=== PATIENT | female | born 1950 | race Caucasian/White ===

== ENCOUNTER 2018-09-21 19:28 | Outpatient (CLI) | payer MEDICARE | END 2018-09-21 19:29 | disposition short-term general hospital (02) | LOC: EMS 19:28 | PROVIDERS: ATTEND Surgery | DX: R42 Dizziness and giddiness (principal) | CPT/HCPCS: A0170; A0425; A0427 ==

== ENCOUNTER 2019-06-04 13:35 | Outpatient (CLI) | payer MEDICARE ==
[2019-06-04 14:00] LABS: BASOPHILS # (AUTO) 0.1 10^3/uL (0.0-0.1); BASOPHILS % (AUTO) 0.6 %; EOSINOPHILS # (AUTO) 0.2 10^3/uL (0.0-0.7); EOSINOPHILS % (AUTO) 2.2 %; HGB - HEMOGLOBIN 13.4 g/dL (12.0-16.0); LYMPHOCYTES # (AUTO) 1.9 10^3/uL (1.5-3.5); LYMPHOCYTES % (AUTO) 22.1 %; MEAN CORPUSCULAR HEMOGLOBIN 33.7 pg (27.0-31.0); MEAN CORPUSCULAR HGB CONC 35.2 g/dL (32.0-36.0); MEAN CORPUSCULAR VOLUME 95.7 fL (81.0-99.0); MEAN PLATELET VOLUME 9.4 fL (7.9-10.8); MONOCYTES # (AUTO) 0.5 10^3/uL (0.0-1.0); MONOCYTES % (AUTO) 5.9 %; NEUTROPHILS # (AUTO) 5.8 10^3/uL (1.5-6.6); NEUTROPHILS % (AUTO) 68.7 %; PLT - PLATELET COUNT 371 10^3/uL (130-450); RED BLOOD COUNT 3.98 10^6/uL (4.20-5.40); RED CELL DISTRIBUTION WIDTH 12.2 % (12.0-15.0); WHITE BLOOD COUNT 8.5 x10^3/uL (4.8-10.8)
== END 2019-06-04 13:36 | disposition home or self-care (01) ==
LOC: LAB 13:35
PROVIDERS: ATTEND Nurse Anesthetist, Certified Registered
DX: K62.3 Rectal prolapse (principal); K64.9 Unspecified hemorrhoids
CPT/HCPCS: 36415; 85025

== ENCOUNTER 2019-06-06 12:06 | Outpatient (CLI) | payer MEDICARE | END 2019-06-06 12:07 | disposition home or self-care (01) | LOC: DI 12:06 | PROVIDERS: ATTEND Nurse Anesthetist, Certified Registered | DX: I42.9 Cardiomyopathy, unspecified (principal); I34.0 Nonrheumatic mitral (valve) insufficiency | CPT/HCPCS: 93306 ==

== ENCOUNTER 2019-06-07 08:06 | Inpatient (IN) | payer MEDICARE ==
[~2019-06-07 08:06] MED LIST: BUPIVACAINE 0.5% PF 10 ML VIAL ONE; POVIDONE IODINE 10% TOP ONE
[2019-06-07] MEDS ORDERED: GABAPENTIN 400 MG CAPSULE ONE (08:35)
[2019-06-07] MEDS ORDERED: ACETAMINOPHEN 500 MG TABLET PO ONE (08:35)
[2019-06-07] MEDS ORDERED: CELECOXIB 100 MG CAPSULE PO ONE (08:35)
[2019-06-07] MEDS ORDERED: LACTATED RINGERS 1,000 ML IV ONE ×2 (08:39→11:02)
--- NOTE | 2019-06-07 08:52 | ANESTHESIA ---
Pre-Anesthesia VS, & Labs - Diagnosis Rectal prolapse (recurrent) - Procedure Low anterior colon resection Vital Signs: Temp Pulse Resp BP Pulse Ox 36.0 C L 73 18 122/69 98 06/07/19 08:30 06/07/19 08:30 06/07/19 08:30 06/07/19 08:30 06/07/19 08:30 Height 5 ft 3 in Weight (kg) 58.1 kg - NPO >8 hours Last Fluid Intake: sips w/pre-op meds @0840 - Is Patient ?: No - Lab Results Lab results reviewed: Yes Home Medications and Allergies Home Medications: Ambulatory Orders Cholecalciferol (Vitamin D3) [Vitamin D] 2,000 unit PO DAILY 06/04/19 HYDROcod/ACETAM 5/325 [[place] 5/325] 1 - 2 ea PO Q6H PRN 06/04/19 Lactobacillus Acidophilus [Probiotic Acidophilus] 1 each PO DAILY 06/04/19 Ubidecarenone/Vit E Acetate [Co Q-10 100 mg Softgel] 1 each PO DAILY 06/04/19 Cholecalciferol (Vitamin D3) [Vitamin D] 2,000 unit PO DAILY 06/04/19 HYDROcod/ACETAM 5/325 [[place] 5/325] 1 - 2 ea PO Q6H PRN 06/04/19 Lactobacillus Acidophilus [Probiotic Acidophilus] 1 each PO DAILY 06/04/19 Ubidecarenone/Vit E Acetate [Co Q-10 100 mg Softgel] 1 each PO DAILY 06/04/19 Allergies/Adverse Reactions: Allergies Allergy/AdvReac Type Severity Reaction Status Date / Time No Known Drug Allergies Allergy Verified 07/08/15 12:17 Anes History & Medical History - Anesthetic History Anesthesia Complications: reports: No previous complications Family history of Anesthesia Complications: Denies Family history of Malignant Hyperthermia: Denies - Medical History Cardiovascular: reports: Other (hx Takotsubo's cardiomyopathy (resolved)) Pulmonary: reports: None Gastrointestinal: reports: Hemorrhoids, Other (rectal prolapse) Urinary: reports: None Musculoskeletal: reports: Osteoarthritis Endocrine/Autoimmune: reports: None Skin: reports: None Smoking Status: Never smoker Psychosocial: reports: Alcohol (daily wine) - Surgical History General: Appendectomy Results - Echo Results Echo Results: Report reviewed (EF 65-70, up from 35% in 09/11) Exam General: Alert, Oriented x3, Cooperative Dental: WNL (some missing at back, upper and lower) Mouth Openin Fingerbreadth Neck Mobility: Normal Mallampati classification: II Thyromental Distance: 4-6 cm Respiratory: Lungs clear, Normal breath sounds, No respiratory distress Cardiovascular: Regular rate Neurological: Normal speech Mental/Cognitive Status: Alert/Oriented X3, Normal for patient Cognitive Status: Within normal limits Plan Anesthesia Type: General, Epidural Consent for Procedure(s) Verified and Reviewed: Yes Code Status: Attempt Resuscitation ASA classification: 2-Mild systemic disease Is this case an emergency?: No
[2019-06-07] MEDS ORDERED: CEFOTETAN DISODIUM 2 GM in SODIUM CHLORIDE 0.9% 100ML 100 ML IV ONE (09:15)
[2019-06-07] MEDS ORDERED: BUPIVACAINE 0.5% PF 10 ML VIAL IM ONE (10:03)
[2019-06-07] MEDS: fent/BUPIV 2 MCG/0.125% 250 ML EP PRN (12:00)
[2019-06-07] MEDS ORDERED: ONDANSETRON 4 MG/2 ML VIAL IVP PRN (12:02)
[2019-06-07] MEDS ORDERED: NALBUPHINE 10 MG/ML AMP IVP PRN (12:02)
--- NOTE | 2019-06-07 12:53 | OPERATIVE REPORT ---
Operative Report - General Admit Date: 06/07/19 Procedure Date: 06/07/19 Planned Procedure: Sigmoidectomylow anterior resection Pre-Op Diagnosis: Rectal prolapse Procedure Performed: Sigmoidectomy with low anterior resection and colocolostomy. Bilateral oophorectomy. Mobilization of the splenic flexure. Post Op Diagnosis: Tumor within the rectum (pathology pending), markedly redundant colon with - Procedure Note Primary Surgeon: Rod Gan MD Secondary Surgeon: Aakash Wood MD Anesthesia Provider: Carlos Alberto York CRNA Anesthesia Technique: Epidural, General ET tube IV Fluids (mL): 1,500 Estimated Blood Loss (mL): 100 Urine Output (mL): 150 Drain/Tube Type: Other (None.) Findings: See above. Complications: None. - Other Other Information/Narrative: OPERATIVE DESCRIPTION/REPORT: After verbal and written informed consent was obtained detailing the risks of infection, bleeding requiring transfusion with its risks, nerve injury, and , as well as the possibility of a colostomy, and after I met with the patient confirming the surgery, the patient was brought to the operative suite and placed supine on the operating table. Great care was taken to avoid pressure points to prevent pressure necrosis or nerve injury. Monitoring devices were applied along with TEDs and pneumatic compressive stockings (to prevent DVT). The patient received preoperative antibiotics for surgical prophylaxis. Carlos Alberto York CRNA sedated and anesthetized the patient for the entire procedure. The patient was prepped and draped in the usual sterile manner. A "time in" then confirmed that the patient was identified with 3 identifiers (name, date and medical record number), the history and physical was in the chart, the signed consent confirming the procedure was in the chart, the patient was in the correct position, the aforementioned prophylactic measures were in place or given, we had the correct personnel and equipment to complete the procedure and that anesthesia, surgery and nursing were given an opportunity to express any concerns. With the agreement of everyone in the room, we proceeded with the operation. A midline incision was made infraumbilically and taken down to the fascia. The incision extended from 2 cm below the umbilicus to above the pubic tubercle. Once this was taken down to the fascia, the fascia and peritoneum were opened without incident or difficulty. The sigmoid colon was markedly redundant. Additionally, the left and right ovary were markedly abnormal with the left much larger than normal and fibrotic. The sigmoid colon and rectum were visually and manually examined and a tumor was easily identified within the rectum. 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 Both ovaries were resected using serial application of the LigaSure. The fallopian tubes were left intact. The uterus and vagina appeared to be normal. The upper-sigmoid colon was selected as the proximal point of resection and a TASNEEM stapler was used to transect the colon at this point. The peritoneum was scored using Bovie electrocautery and the mesentery was then taken sequentially using serial application of the LigaSure device. The posterior dissection was done using finger dissection along the sacrum whereas the peritoneal attachments both anteriorly and laterally were taken using Bovie electrocautery as well as the LigaSure device. The left ureter was positively identified and avoided. After dissecting beyond the tumor, an Ethicon Contour stapler was obtained and placed across the distal rectum and fired. The specimen was delivered from the operative field and I opened it on the back table to confirm the presence of a colorectal tumor. There was a significant amount of hard stool present in the colon due to the fact that I had opted not to give the patient a mechanical prep due to concerns that I had regarding her prolapse. The patient had told me that she had only been on a liquid diet for weeks and months. At any rate it was clear that I was going to have to remove this stool before I could affect a proper anastomosis. After draping of the entire abdomen with blue towels the proximal colon was opened using Jaramillo scissors and to very hard stools were removed. The open end of the colon was swabbed using Betadine solution. A 31 mm EEA stapler was obtained. An automatic pursetring device was placed across the proximal sigmoid colon and a 3-0 Prolene on a Alvaro needle was used to form the purse string. After the stapled end was removed, the anvil was placed in the open and of the colon and the purse string tied against the post of the anvil. There was not enough length to the colon for it to go into the pelvis without tension. The splenic flexure of the colon was mobilized using Bovie electro cautery as well as serial application of LigaSure of right finger. The markedly redundant nature of the patient's colon made this significantly easier and the incision did not need to be lengthened. With mobilization of the splenic flexure it was clear that the proximal colon would drop down into the pelvis without any tension. Dr. Wood then serially dilated the patients anus with his fingers and water-soluble lubricant in order that the stapler could be inserted. The aforementioned EEA stapler was inserted into the patients rectum through the anus and carefully directed to the staple line by Dr. Wood. Dr. Wood advanced the spike under my direction and the aforementioned anvil was placed over the spike until a click could be heard. This was screwed down tight and the stapler was fired creating the colocolostomy. The pelvis was filled with warm sterile saline and the proximal colon was obstructed between my two fingers while Dr. Wood introduced air through the patients anus using a bulb syringe. The anastamosis was airtight. Additionally, Dr. Wood advanced apart scope beyond the anastomosis and although he could not take any photographs the anastomosis was noted to be intact. For closure, Dr. Wood and I changed into a sterile gown and gloves. The liver was palpably normal. The abdomen was copiously irrigated with warm saline. The fascia was closed using a 0 looped PDS in a running fashion. The fascial closure was started superiorly and inferiorly and run to meet in the middle. The subcutaneous tissues were copiously irrigated using warm sterile saline and meticulous hemostasis was obtained using Bovie electrocautery. The skin was approximated using skin kadie. At this point a time out was performed that confirmed that all the counts were correct, the procedure that was performed, the blood loss, the urine output, the IV fluids administered, and the patients condition. A PRimapore dressing was placed on the wound. Having tolerated the procedure well, the patient was subsequently extubated and taken to recovery room in good and stable condition. [employer] disclaimer: This document was created in part using voice recognition technology. Because of the inherent limitations of the system ([employer]'s [employer] Dictate user manual states that the licensee understands that speech recognition is a statistical process and that recognition errors are inherent in the process), occasional same sounding word substitutions and grammatical errors do occur and persist despite proofreading. Please read this document for context.
[2019-06-07] MEDS ORDERED: LACTATED RINGERS 1,000 ML IV SCH (13:00)
[2019-06-07] MEDS ORDERED: PIPERACILLIN/TAZOBACTAM 3.375 GM in SODIUM CHLORIDE 0.9% MINIBAG 100 ML IV SCH (14:00)
[2019-06-07] MEDS: ACETAMINOPHEN 1,000 MG/100 ML 100 ML IV SCH ×2 (14:57→21:22)
[2019-06-07] MEDS: SODIUM CHLORIDE FLUSH 0.9% 10 ML SYRINGE IVP PRN (14:58)
[2019-06-07] MEDS: PANTOPRAZOLE 40 MG VIAL IVP SCH (14:58)
[2019-06-07] MEDS: SODIUM CHLORIDE FLUSH 0.9% 10 ML SYRINGE IVP SCH (21:08)
[2019-06-08] MEDS: ACETAMINOPHEN 1,000 MG/100 ML 100 ML IV SCH ×4 (01:51→21:42)
[2019-06-08 04:42] LABS: BASOPHILS % (AUTO) 0.2 %; EOSINOPHILS % (AUTO) 0.5 %; HGB - HEMOGLOBIN 11.3 g/dL (12.0-16.0); LYMPHOCYTES % (AUTO) 9.8 %; MEAN CORPUSCULAR HGB CONC 34.5 g/dL (32.0-36.0); MEAN CORPUSCULAR VOLUME 98.8 fL (81.0-99.0); MEAN PLATELET VOLUME 9.6 fL (7.9-10.8); MONOCYTES % (AUTO) 3.8 %; NEUTROPHILS % (AUTO) 85.2 %; PLT - PLATELET COUNT 293 10^3/uL (130-450); RED BLOOD COUNT 3.32 10^6/uL (4.20-5.40); RED CELL DISTRIBUTION WIDTH 12.4 % (12.0-15.0); WHITE BLOOD COUNT 13.1 x10^3/uL (4.8-10.8)
[2019-06-08 04:46] LABS: ABNORMAL LYMPHS % (MANUAL) 0 %; BAND NEUTROPHILS % (MANUAL) 0 %
[2019-06-08 05:06] LABS: ALBUMIN 2.9 g/dL (3.2-5.5); ALBUMIN/GLOBULIN RATIO 1.5 (1.0-2.2); BILIRUBIN,TOTAL 0.8 mg/dL (0.2-1.0); CALCIUM 8.3 mg/dL (8.5-10.3); CREATININE 0.7 mg/dL (0.4-1.0); TOTAL PROTEIN 4.8 g/dL (6.7-8.2)
[2019-06-08 05:20] LABS: DIFFERENTIAL COMMENT MANUAL DIFFERENTIAL; LYMPHOCYTES # (MANUAL) 1.4 10^3/uL (1.5-3.5); LYMPHOCYTES % (MANUAL) 11 %; MONOCYTES # (MANUAL) 0.5 10^3/uL (0.0-1.0); PLATELET ESTIMATE, MANUAL NORMAL (130-450,000) (NORMAL); PLATELET MORPHOLOGY NORMAL APPEARANCE (NORMAL); RBC MORPHOLOGY (MULTIPLE) NORMAL APPEARANCE (NORMAL)
[2019-06-08] MEDS: PANTOPRAZOLE 40 MG VIAL IVP SCH (06:43)
[2019-06-08] MEDS: SODIUM CHLORIDE FLUSH 0.9% 10 ML SYRINGE IVP SCH ×3 (06:43→16:18)
[2019-06-08] MEDS: fent/BUPIV 2 MCG/0.125% 250 ML EP PRN ×2 (07:02→11:00)
--- NOTE | 2019-06-08 10:48 | ANESTHESIA POST OP EVALUATION ---
Anesthesia Post Eval - Post Anesthesia Eval CV Function Including HR & BP: positive: Stable Pain Control: positive: Adequate Nausea & Vomiting: positive: Negative Mental Status: positive: Appropriate Anesthesia Complications: positive: None - Other Details/Therapies Other Details/Therapies: Epidural site is clear. Patient reports good pain control with no need for narcotics. Left leg is numb/weak. Will decrease infusion rate to 6ml/hr with same PCEA. Patient is not on any anticoagulants so epidural can be removed whenever surgeon feels appropriate. Plan on removal on 06/10 unless surgeon wants it removed sooner.
--- NOTE | 2019-06-08 12:20 | PROVIDER PROGRESS NOTE ---
Subjective - General Admit Date: 06/07/19 Procedure Date: 06/07/19 Post Op Days: 1 Procedure Performed: Extended LAR/sigmoidectomy, mobilization splenic flexure, B oophorectomy - Review of Systems Wound/Incisions: positive: Dressing dry and intact General: positive: No symptoms HEENT: positive: No symptoms Pulmonary: positive: No symptoms Cardiovascular: positive: No symptoms Gastrointestinal: positive: No symptoms Genitourinary: positive: No symptoms Musculoskeletal: positive: No symptoms Skin: positive: No symptoms Psychiatric: positive: No symptoms Objective - Patient Data Reviewed Vital Signs: Yes Weight: Weight 06/06/19 06/07/19 06/08/19 23:59 23:59 23:59 Weight (kg) 58.1 kg Intake & Output: Intake and Output Totals x24h 06/06/19 06/07/19 06/08/19 23:59 23:59 23:59 Intake Total 3720 1127.5 Output Total 950 550 Balance 2770 577.5 - Lab Results Lab Results: 06/08/19 04:20 06/08/19 04:20 Other Lab Results: Lab Results x24hrs 06/08/19 06/08/19 06/08/19 Range/Units 11:48 07:39 04:20 WBC (4.8-10.8) x10^3/uL RBC (4.20-5.40) 10^6/uL Hgb (12.0-16.0) g/dL Hct (37.0-47.0) % MCV (81.0-99.0) fL MCH (27.0-31.0) pg MCHC (32.0-36.0) g/dL RDW (12.0-15.0) % Plt Count (130-450) 10^3/uL MPV (7.9-10.8) fL Neut # (Auto) Lymph # (Auto) [place] # (Auto) Eos # (Auto) Baso # (Auto) Absolute Nucleated RBC Total Counted Band Neuts % (Manual) (0 - 10) % Abnorm Lymph % (Manual) % Nucleated RBC % Neutrophils # (Manual) (1.5-6.6) 10^3/uL Lymphocytes # (Manual) (1.5-3.5) 10^3/uL Monocytes # (Manual) (0.0-1.0) 10^3/uL Eosinophils # (Manual) (0-0.7) 10^3/uL Basophils # (Manual) (0-0.1) 10^3/uL Differential Comment WBC Morphology (NORMAL) Platelet Estimate (NORMAL) Platelet Morphology (NORMAL) RBC Morph Micro Appear (NORMAL) Sodium 128 L (135-145) mmol/L Potassium 5.1 H (3.5-5.0) mmol/L Chloride 94 L (101-111) mmol/L Carbon Dioxide 27 (21-32) mmol/L Anion Gap 7.0 (6-13) BUN 9 (6-20) mg/dL Creatinine 0.7 (0.4-1.0) mg/dL Estimated GFR (MDRD) 83 L (>89) Glucose 114 H (70-100) mg/dL POC Whole Bld Glucose 112 H 96 (70 - 100) mg/dL Calcium 8.3 L (8.5-10.3) mg/dL Total Bilirubin 0.8 (0.2-1.0) mg/dL AST 48 H (10-42) IU/L ALT 38 (10-60) IU/L Alkaline Phosphatase 54 (42-121) IU/L Total Protein 4.8 L (6.7-8.2) g/dL Albumin 2.9 L (3.2-5.5) g/dL Globulin 1.9 L (2.1-4.2) g/dL Albumin/Globulin Ratio 1.5 (1.0-2.2) 06/08/19 06/07/19 06/07/19 Range/Units 04:20 20:38 16:50 WBC 13.1 H (4.8-10.8) x10^3/uL RBC 3.32 L (4.20-5.40) 10^6/uL Hgb 11.3 L (12.0-16.0) g/dL Hct 32.8 L (37.0-47.0) % MCV 98.8 (81.0-99.0) fL MCH 34.0 H (27.0-31.0) pg MCHC 34.5 (32.0-36.0) g/dL RDW 12.4 (12.0-15.0) % Plt Count 293 (130-450) 10^3/uL MPV 9.6 (7.9-10.8) fL Neut # (Auto) Not Reportable Lymph # (Auto) Not Reportable [place] # (Auto) Not Reportable Eos # (Auto) Not Reportable Baso # (Auto) Not Reportable Absolute Nucleated RBC Not Reportable Total Counted 100 Band Neuts % (Manual) 0 (0 - 10) % Abnorm Lymph % (Manual) 0 % Nucleated RBC % Not Reportable Neutrophils # (Manual) 11.1 H (1.5-6.6) 10^3/uL Lymphocytes # (Manual) 1.4 L (1.5-3.5) 10^3/uL Monocytes # (Manual) 0.5 (0.0-1.0) 10^3/uL Eosinophils # (Manual) 0.0 (0-0.7) 10^3/uL Basophils # (Manual) 0.0 (0-0.1) 10^3/uL Differential Comment MANUAL DIFFERENTIAL WBC Morphology NORMAL APPEARANCE (NORMAL) Platelet Estimate NORMAL (130-450,000) (NORMAL) Platelet Morphology NORMAL APPEARANCE (NORMAL) RBC Morph Micro Appear NORMAL APPEARANCE (NORMAL) Sodium (135-145) mmol/L Potassium (3.5-5.0) mmol/L Chloride (101-111) mmol/L Carbon Dioxide (21-32) mmol/L Anion Gap (6-13) BUN (6-20) mg/dL Creatinine (0.4-1.0) mg/dL Estimated GFR (MDRD) (>89) Glucose (70-100) mg/dL POC Whole Bld Glucose 113 H 102 H (70 - 100) mg/dL Calcium (8.5-10.3) mg/dL Total Bilirubin (0.2-1.0) mg/dL AST (10-42) IU/L ALT (10-60) IU/L Alkaline Phosphatase (42-121) IU/L Total Protein (6.7-8.2) g/dL Albumin (3.2-5.5) g/dL Globulin (2.1-4.2) g/dL Albumin/Globulin Ratio (1.0-2.2) - Current Medications Current Medications: Current Medications Generic Name Dose Route Start Last Admin Trade Name Freq PRN Reason Stop Dose Admin Acetaminophen 100 mls @ 400 mls/hr 06/07/19 13:00 06/08/19 08:40 Ofirmev IV Infused Q6H KIKI Infusion Pantoprazole Sodium 40 mg 06/07/19 13:00 06/08/19 06:43 Protonix IVP 40 mg QDAC KIKI Administration Sodium Chloride 10 ml 06/07/19 17:00 06/08/19 10:45 Normal Saline Flush 0.9% IVP Not Given 0100,0900,1700 KIKI Sodium Chloride 10 ml 06/07/19 12:41 06/07/19 14:58 Normal Saline Flush 0.9% IVP 10 ml PRN PRN Administration NEEDED PER PROVIDER ORDERS - Physical Exam Wound/Incisions: positive: Dressing dry and intact General Appearance: positive: No acute distress Eyes Bilateral: positive: No lid inflammation, Conjunctivae nml, No scleral icterus ENT: positive: No signs of dehydration Neck: positive: Trachea midline Respiratory: positive: Chest non-tender, No respiratory distress, Breath sounds nml Cardiovascular: positive: Regular rate & rhythm Skin: positive: Color nml Extremities: positive: Non-tender, Nml appearance Neurologic/Psychiatric: positive: Oriented x3, Motor nml, Sensation nml, Mood/affect nml ABX Reporting Has patient been on IV antibiotics over the past 48 hours?: Yes Impression/Plan - Problem List Problem List: D1 s/p LAR-sigmoidectomy with mobilization splenic flexure for rectal prolapse with findings of rectal tumor and abnormal ovaries bilaterally resulting in bilateral oophorectomy 1) FEN Patient is on ERAS protocol. Switch to NS from LR due to high K and low Na and Cl. 2) DVT Prophylaxis with TEDs and venadynes. Although Lovenox COULD be given epidural is in and preference would be not to give due to risk. 3) WBC Reactive demargination and no cause for concern. Antibiotics NOT indicated. 4) Desouza Pull today and scan PRN. 5) Pain Very well controlled with epidural. 6) Pathology Pending on rectal tumor and ovaries. Discussed with patient.
[2019-06-08] MEDS: SODIUM CHLORIDE 0.9% 1,000 ML IV SCH (12:38)
[2019-06-09] MEDS: SODIUM CHLORIDE FLUSH 0.9% 10 ML SYRINGE IVP SCH ×3 (00:33→16:19)
[2019-06-09] MEDS: ACETAMINOPHEN 1,000 MG/100 ML 100 ML IV SCH ×4 (03:46→21:14)
[2019-06-09] MEDS: fent/BUPIV 2 MCG/0.125% 250 ML EP PRN (05:01)
[2019-06-09 05:12] LABS: BASOPHILS % (AUTO) 0.3 %; EOSINOPHILS # (AUTO) 0.1 10^3/uL (0.0-0.7); EOSINOPHILS % (AUTO) 0.7 %; HGB - HEMOGLOBIN 9.6 g/dL (12.0-16.0); LYMPHOCYTES # (AUTO) 0.8 10^3/uL (1.5-3.5); LYMPHOCYTES % (AUTO) 7.2 %; MEAN CORPUSCULAR HGB CONC 33.2 g/dL (32.0-36.0); MEAN CORPUSCULAR VOLUME 99.3 fL (81.0-99.0); MEAN PLATELET VOLUME 9.2 fL (7.9-10.8); MONOCYTES # (AUTO) 0.3 10^3/uL (0.0-1.0); MONOCYTES % (AUTO) 2.7 %; NEUTROPHILS % (AUTO) 88.1 %; PLT - PLATELET COUNT 243 10^3/uL (130-450); RED BLOOD COUNT 2.91 10^6/uL (4.20-5.40); RED CELL DISTRIBUTION WIDTH 12.5 % (12.0-15.0); WHITE BLOOD COUNT 11.3 x10^3/uL (4.8-10.8)
[2019-06-09 05:23] LABS: ALBUMIN 2.6 g/dL (3.2-5.5); ALBUMIN/GLOBULIN RATIO 1.2 (1.0-2.2); BILIRUBIN,TOTAL 0.8 mg/dL (0.2-1.0); CALCIUM 8.1 mg/dL (8.5-10.3); CREATININE 0.6 mg/dL (0.4-1.0); TOTAL PROTEIN 4.8 g/dL (6.7-8.2)
[2019-06-09] MEDS: SODIUM CHLORIDE 0.9% 1,000 ML IV SCH (06:37)
[2019-06-09] MEDS: SODIUM CHLORIDE FLUSH 0.9% 10 ML SYRINGE IVP PRN (06:38)
[2019-06-09] MEDS: PANTOPRAZOLE 40 MG VIAL IVP SCH (06:38)
--- NOTE | 2019-06-09 09:53 | PROVIDER PROGRESS NOTE ---
Subjective - General Admit Date: 06/07/19 Procedure Date: 06/07/19 Post Op Days: 3 Procedure Performed: Extended LAR/sigmoidectomy, mobilization splenic flexure, B oophorectomy - Review of Systems Wound/Incisions: positive: Healing well General: positive: No symptoms HEENT: positive: No symptoms Pulmonary: positive: No symptoms Cardiovascular: positive: No symptoms Gastrointestinal: positive: No symptoms Genitourinary: positive: No symptoms Musculoskeletal: positive: No symptoms Skin: positive: No symptoms Psychiatric: positive: No symptoms Objective - Patient Data Reviewed Vital Signs: Yes Vital Signs: Vital Signs x48h Temp Pulse Resp BP Pulse Ox 06/09/19 07:39 36.7 C 84 16 113/63 95 06/09/19 04:58 36.8 C 82 16 106/73 93 Weight: Weight 06/07/19 06/08/19 06/09/19 23:59 23:59 23:59 Weight (kg) 58.1 kg Intake & Output: Intake and Output Totals x24h 06/07/19 06/08/19 06/09/19 23:59 23:59 23:59 Intake Total 3720 2110.0 1299.167 Output Total 950 1100 350 Balance 2770 1010.0 949.167 - Lab Results Lab Results: 06/10/19 05:02 06/10/19 05:02 Other Lab Results: Lab Results x24hrs 06/09/19 06/09/19 06/08/19 Range/Units 05:00 05:00 11:48 WBC 11.3 H (4.8-10.8) x10^3/uL RBC 2.91 L (4.20-5.40) 10^6/uL Hgb 9.6 L (12.0-16.0) g/dL Hct 28.9 L (37.0-47.0) % MCV 99.3 H (81.0-99.0) fL MCH 33.0 H (27.0-31.0) pg MCHC 33.2 (32.0-36.0) g/dL RDW 12.5 (12.0-15.0) % Plt Count 243 (130-450) 10^3/uL MPV 9.2 (7.9-10.8) fL Neut # (Auto) 10.0 H (1.5-6.6) 10^3/uL Lymph # (Auto) 0.8 L (1.5-3.5) 10^3/uL [place] # (Auto) 0.3 (0.0-1.0) 10^3/uL Eos # (Auto) 0.1 (0.0-0.7) 10^3/uL Baso # (Auto) 0.0 (0.0-0.1) 10^3/uL Absolute Nucleated RBC 0.00 x10^3/uL Nucleated RBC % 0.0 /100WBC Sodium 128 L (135-145) mmol/L Potassium 4.2 (3.5-5.0) mmol/L Chloride 95 L (101-111) mmol/L Carbon Dioxide 25 (21-32) mmol/L Anion Gap 8.0 (6-13) BUN 8 (6-20) mg/dL Creatinine 0.6 (0.4-1.0) mg/dL Estimated GFR (MDRD) 99 (>89) Glucose 93 (70-100) mg/dL POC Whole Bld Glucose 112 H (70 - 100) mg/dL Calcium 8.1 L (8.5-10.3) mg/dL Total Bilirubin 0.8 (0.2-1.0) mg/dL AST 43 H (10-42) IU/L ALT 37 (10-60) IU/L Alkaline Phosphatase 57 (42-121) IU/L Total Protein 4.8 L (6.7-8.2) g/dL Albumin 2.6 L (3.2-5.5) g/dL Globulin 2.2 (2.1-4.2) g/dL Albumin/Globulin Ratio 1.2 (1.0-2.2) - Current Medications Current Medications: Current Medications Generic Name Dose Route Start Last Admin Trade Name Freq PRN Reason Stop Dose Admin Fentanyl/Bupivacaine/Sodium Chlor 250 mls @ 0 mls/hr 06/08/19 10:49 06/09/19 05:01 Fent/Bupiv 2 Mcg/0.125% EP 6 mls/hr .Q0M PRN Administration PAIN Protocol Per Protocol Sodium Chloride 1,000 mls @ 50 mls/hr 06/08/19 13:00 06/09/19 06:37 Normal Saline 0.9% IV 50 mls/hr .Q20H KIKI Administration Acetaminophen 100 mls @ 400 mls/hr 06/08/19 16:00 06/09/19 04:05 Ofirmev IV Infused Q6H KIKI Infusion Pantoprazole Sodium 40 mg 06/07/19 13:00 06/09/19 06:38 Protonix IVP 40 mg QDAC KIKI Administration Sodium Chloride 10 ml 06/07/19 17:00 06/09/19 09:40 Normal Saline Flush 0.9% IVP Not Given 0100,0900,1700 KIKI Sodium Chloride 10 ml 06/07/19 12:41 06/09/19 06:38 Normal Saline Flush 0.9% IVP 10 ml PRN PRN Administration NEEDED PER PROVIDER ORDERS - Physical Exam Wound/Incisions: positive: Healing well (Conor in place no erythema or drainage - dressing not replaced.) General Appearance: positive: No acute distress Eyes Bilateral: positive: No lid inflammation, Conjunctivae nml, No scleral icterus ENT: positive: No signs of dehydration Neck: positive: Trachea midline Respiratory: positive: Chest non-tender, No respiratory distress, Breath sounds nml Cardiovascular: positive: Regular rate & rhythm, Systolic murmur (Murmur was erroneously not mentioned yesterday - it has been present throughtout.) Abdomen: positive: Non-tender, No organomegaly Skin: positive: Color nml Extremities: positive: Non-tender, Full ROM, Nml appearance Neurologic/Psychiatric: positive: Oriented x3, Motor nml, Sensation nml, Mood/affect nml ABX Reporting Has patient been on IV antibiotics over the past 48 hours?: No Impression/Plan - Problem List Problem List: D2 s/p LAR-sigmoidectomy with mobilization splenic flexure for rectal prolapse with findings of rectal tumor and abnormal ovaries bilaterally resulting in bilateral oophorectomy 1) FEN Patient is on ERAS protocol. Switched to NS from LR due to high K and low Na and Cl and K responded well but Na and Cl essentially unchanged. Probable baseline protein malnutrition will consult [employer] in AM. 2) DVT Prophylaxis with TEDs and venadynes. Although Lovenox COULD be given epidural is in and preference would be not to give due to risk. 3) WBC Reactive demargination and no cause for concern - lower today. Antibiotics NOT indicated. 4) Desouza Out scan PRN. 5) Pain Very well controlled with epidural. 6) Pathology Pending on rectal tumor and ovaries. Discussed with patient.
--- NOTE | 2019-06-09 12:34 | ANESTHESIA POST OP EVALUATION ---
Anesthesia Post Eval - Post Anesthesia Eval CV Function Including HR & BP: positive: Stable Pain Control: positive: Adequate Nausea & Vomiting: positive: Negative Mental Status: positive: Appropriate Anesthesia Complications: positive: None (POD2 epidural rounds. Pt resting comfortably in bed. VSS. States she slept well and has had little pain t/o the night. L leg has better sensation than yesterday as this was her only complaint. Site is clean, no redness/tenderness. Able to ambulate with asssit to bathroom. Explained that she can expect epidural to be removed tomorrow unless general surgery disagrees. Assessment is ongoing.)
[2019-06-10] MEDS: SODIUM CHLORIDE 0.9% 1,000 ML IV SCH ×2 (00:06→22:06)
[2019-06-10] MEDS: ACETAMINOPHEN 1,000 MG/100 ML 100 ML IV SCH ×5 (04:05→22:06)
[2019-06-10] MEDS: SODIUM CHLORIDE FLUSH 0.9% 10 ML SYRINGE IVP SCH ×3 (04:07→17:35)
[2019-06-10] MEDS: fent/BUPIV 2 MCG/0.125% 250 ML EP PRN (04:25)
[2019-06-10 05:11] LABS: BASOPHILS % (AUTO) 0.3 %; EOSINOPHILS # (AUTO) 0.1 10^3/uL (0.0-0.7); EOSINOPHILS % (AUTO) 1.4 %; HGB - HEMOGLOBIN 8.7 g/dL (12.0-16.0); LYMPHOCYTES # (AUTO) 0.7 10^3/uL (1.5-3.5); LYMPHOCYTES % (AUTO) 7.2 %; MEAN CORPUSCULAR HEMOGLOBIN 33.5 pg (27.0-31.0); MEAN CORPUSCULAR HGB CONC 33.9 g/dL (32.0-36.0); MEAN CORPUSCULAR VOLUME 98.8 fL (81.0-99.0); MEAN PLATELET VOLUME 9.1 fL (7.9-10.8); MONOCYTES # (AUTO) 0.3 10^3/uL (0.0-1.0); MONOCYTES % (AUTO) 3.4 %; NEUTROPHILS # (AUTO) 8.7 10^3/uL (1.5-6.6); NEUTROPHILS % (AUTO) 86.6 %; PLT - PLATELET COUNT 247 10^3/uL (130-450); RED CELL DISTRIBUTION WIDTH 12.4 % (12.0-15.0)
[2019-06-10 05:23] LABS: ALBUMIN 2.5 g/dL (3.2-5.5); BILIRUBIN,TOTAL 0.7 mg/dL (0.2-1.0); CREATININE 0.4 mg/dL (0.4-1.0)
[2019-06-10] MEDS: SODIUM CHLORIDE FLUSH 0.9% 10 ML SYRINGE IVP PRN (06:05)
[2019-06-10] MEDS: PANTOPRAZOLE 40 MG VIAL IVP SCH (06:05)
--- NOTE | 2019-06-10 10:52 | PROVIDER PROGRESS NOTE ---
Subjective - General Admit Date: 06/07/19 Procedure Date: 06/07/19 Post Op Days: 3 Procedure Performed: Extended LAR/sigmoidectomy, mobilization splenic flexure, B oophorectomy - Review of Systems Wound/Incisions: positive: Dressing dry and intact General: positive: No symptoms HEENT: positive: No symptoms Pulmonary: positive: No symptoms Cardiovascular: positive: No symptoms Gastrointestinal: positive: No symptoms Genitourinary: positive: No symptoms Musculoskeletal: positive: No symptoms Skin: positive: No symptoms Psychiatric: positive: No symptoms Objective - Patient Data Reviewed Vital Signs: Yes Vital Signs: Vital Signs x48h Temp Pulse Resp BP BP Pulse Ox 06/10/19 09:00 36.9 C 63 16 111/67 96 06/10/19 03:50 36.8 C 83 16 117/71 93 Intake & Output: Intake and Output Totals x24h 06/08/19 06/09/19 06/10/19 23:59 23:59 23:59 Intake Total 2110.0 2399.167 1741.667 Output Total 1100 1050 Balance 1010.0 4528.244 4975.667 - Lab Results Lab Results: 06/10/19 05:02 06/10/19 05:02 Other Lab Results: Lab Results x24hrs 06/10/19 06/10/19 Range/Units 05:02 05:02 WBC 10.0 (4.8-10.8) x10^3/uL RBC 2.60 L (4.20-5.40) 10^6/uL Hgb 8.7 L (12.0-16.0) g/dL Hct 25.7 L (37.0-47.0) % MCV 98.8 (81.0-99.0) fL MCH 33.5 H (27.0-31.0) pg MCHC 33.9 (32.0-36.0) g/dL RDW 12.4 (12.0-15.0) % Plt Count 247 (130-450) 10^3/uL MPV 9.1 (7.9-10.8) fL Neut # (Auto) 8.7 H (1.5-6.6) 10^3/uL Lymph # (Auto) 0.7 L (1.5-3.5) 10^3/uL [place] # (Auto) 0.3 (0.0-1.0) 10^3/uL Eos # (Auto) 0.1 (0.0-0.7) 10^3/uL Baso # (Auto) 0.0 (0.0-0.1) 10^3/uL Absolute Nucleated RBC 0.00 x10^3/uL Nucleated RBC % 0.0 /100WBC Sodium 130 L (135-145) mmol/L Potassium 3.5 (3.5-5.0) mmol/L Chloride 99 L (101-111) mmol/L Carbon Dioxide 24 (21-32) mmol/L Anion Gap 7.0 (6-13) BUN 5 L (6-20) mg/dL Creatinine 0.4 (0.4-1.0) mg/dL Estimated GFR (MDRD) 158 (>89) Glucose 93 (70-100) mg/dL Calcium 8.0 L (8.5-10.3) mg/dL Total Bilirubin 0.7 (0.2-1.0) mg/dL AST 35 (10-42) IU/L ALT 33 (10-60) IU/L Alkaline Phosphatase 70 (42-121) IU/L Total Protein 5.0 L (6.7-8.2) g/dL Albumin 2.5 L (3.2-5.5) g/dL Globulin 2.5 (2.1-4.2) g/dL Albumin/Globulin Ratio 1.0 (1.0-2.2) - Current Medications Current Medications: Current Medications Generic Name Dose Route Start Last Admin Trade Name Jordiq PRN Reason Stop Dose Admin Fentanyl/Bupivacaine/Sodium Chlor 250 mls @ 0 mls/hr 06/08/19 10:49 06/10/19 04:25 Fent/Bupiv 2 Mcg/0.125% EP 6 mls/hr .Q0M PRN Administration PAIN Protocol Per Protocol Sodium Chloride 1,000 mls @ 50 mls/hr 06/08/19 13:00 06/10/19 08:39 Normal Saline 0.9% IV 50 mls/hr .Q20H KIKI Infusion Acetaminophen 100 mls @ 400 mls/hr 06/08/19 16:00 06/10/19 10:30 Ofirmev IV Infused Q6H KIKI Infusion Pantoprazole Sodium 40 mg 06/07/19 13:00 06/10/19 06:05 Protonix IVP 40 mg QDAC KIKI Administration Sodium Chloride 10 ml 06/07/19 17:00 06/10/19 08:12 Normal Saline Flush 0.9% IVP 10 ml 0100,0900,1700 KIKI Administration Sodium Chloride 10 ml 06/07/19 12:41 06/10/19 06:05 Normal Saline Flush 0.9% IVP 10 ml PRN PRN Administration NEEDED PER PROVIDER ORDERS - Physical Exam Wound/Incisions: positive: Healing well (Well approximated with kadie.) General Appearance: positive: No acute distress Eyes Bilateral: positive: No lid inflammation, Conjunctivae nml, No scleral icterus ENT: positive: No signs of dehydration Neck: positive: Trachea midline Respiratory: positive: Chest non-tender, No respiratory distress Cardiovascular: positive: Regular rate & rhythm, Systolic murmur Abdomen: positive: Tenderness (Incisional.), Abnml bowel sounds (Decreased.) Skin: positive: Color nml Extremities: positive: Non-tender, Nml appearance Neurologic/Psychiatric: positive: Oriented x3, Motor nml, Sensation nml, Mood/affect nml Impression/Plan - Problem List Problem List: D3 s/p LAR-sigmoidectomy with mobilization splenic flexure for rectal prolapse with findings of rectal tumor and abnormal ovaries bilaterally resulting in bilateral oophorectomy 1) FEN Patient is on ERAS protocol. 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 2) DVT Prophylaxis with TEDs and venadynes. Although Lovenox COULD be given epidural is in and preference would be not to give due to risk. Risk even higher today due to removal. 3) WBC Normal today. 4) Pain Very well controlled with epidural. Epidural out today - switch to orals. 5) Pathology Pending on rectal tumor and ovaries. Discussed with patient. 6) Activity Must ambulate more today - discussed with patient.
--- NOTE | 2019-06-10 18:33 | ANESTHESIA POST OP EVALUATION ---
Anesthesia Post Eval - Post Anesthesia Eval CV Function Including HR & BP: positive: Stable Pain Control: positive: Adequate Nausea & Vomiting: positive: Negative Mental Status: positive: Appropriate Anesthesia Complications: positive: None - Other Details/Therapies Other Details/Therapies: Epidural catheter removed with tip intact. Patient reported she had good pain control. Site clear.
[2019-06-10] MEDS ORDERED: HYDROmorphone 2 MG/ML VIAL IVP PRN (19:43)
[2019-06-11] MEDS: SODIUM CHLORIDE FLUSH 0.9% 10 ML SYRINGE IVP SCH ×3 (00:09→16:35)
[2019-06-11] MEDS: HYDROcod/ACETAM 5/325 MG TABLET PO PRN ×5 (00:14→23:53)
[2019-06-11] MEDS: ACETAMINOPHEN 1,000 MG/100 ML 100 ML IV SCH ×3 (03:57→16:35)
[2019-06-11 05:36] LABS: BASOPHILS % (AUTO) 0.3 %; EOSINOPHILS # (AUTO) 0.2 10^3/uL (0.0-0.7); HGB - HEMOGLOBIN 8.6 g/dL (12.0-16.0); LYMPHOCYTES # (AUTO) 0.8 10^3/uL (1.5-3.5); LYMPHOCYTES % (AUTO) 12.7 %; MEAN CORPUSCULAR HEMOGLOBIN 33.2 pg (27.0-31.0); MEAN CORPUSCULAR HGB CONC 33.7 g/dL (32.0-36.0); MEAN CORPUSCULAR VOLUME 98.5 fL (81.0-99.0); MEAN PLATELET VOLUME 9.5 fL (7.9-10.8); MONOCYTES # (AUTO) 0.3 10^3/uL (0.0-1.0); MONOCYTES % (AUTO) 5.4 %; NEUTROPHILS # (AUTO) 4.9 10^3/uL (1.5-6.6); PLT - PLATELET COUNT 272 10^3/uL (130-450); RED BLOOD COUNT 2.59 10^6/uL (4.20-5.40); RED CELL DISTRIBUTION WIDTH 12.4 % (12.0-15.0); WHITE BLOOD COUNT 6.2 x10^3/uL (4.8-10.8)
[2019-06-11 05:52] LABS: ALBUMIN 2.5 g/dL (3.2-5.5); ALKALINE PHOSPHATASE 113 IU/L (42-121); ALT ALANINE AMINOTRANSFERASE 55 IU/L (10-60); AST ASPARTATE AMINOTRANSFERASE 64 IU/L (10-42); BILIRUBIN,TOTAL 0.8 mg/dL (0.2-1.0); BUN - BLOOD UREA NITROGEN < 5 mg/dL (6-20); CARBON DIOXIDE - CO2 25 mmol/L (21-32); CHLORIDE 100 mmol/L (101-111); CREATININE 0.4 mg/dL (0.4-1.0); GFR - MDRD 158 (>89); GLUCOSE 91 mg/dL (70-100); SODIUM 132 mmol/L (135-145)
[2019-06-11] MEDS: PANTOPRAZOLE 40 MG VIAL IVP SCH (06:27)
[2019-06-11] MEDS: SODIUM CHLORIDE FLUSH 0.9% 10 ML SYRINGE IVP PRN (06:28)
[2019-06-11] MEDS ORDERED: HYDROmorphone 1 MG/ML CARPUJECT IVP PRN (09:01)
[2019-06-11] MEDS: MULTIVITAMIN W/MINERALS TABLET PO SCH (10:32)
--- NOTE | 2019-06-11 18:25 | PROVIDER PROGRESS NOTE ---
Subjective - General Admit Date: 06/07/19 Procedure Date: 06/07/19 Post Op Days: 4 Procedure Performed: Extended LAR/sigmoidectomy, mobilization splenic flexure, B oophorectomy - Review of Systems Wound/Incisions: positive: Healing well (Conor in place no erythema or drainage - dressing not replaced.) General: positive: No symptoms HEENT: positive: No symptoms Pulmonary: positive: No symptoms Cardiovascular: positive: No symptoms Gastrointestinal: positive: No symptoms Genitourinary: positive: No symptoms Musculoskeletal: positive: No symptoms Skin: positive: No symptoms Psychiatric: positive: No symptoms Objective - Patient Data Reviewed Vital Signs: Yes Vital Signs: Vital Signs x48h Temp Pulse Resp BP Pulse Ox 06/11/19 15:45 36.8 C 64 16 155/66 H 98 06/11/19 13:03 36.7 C 67 15 138/74 H 97 Intake & Output: Intake and Output Totals x24h 06/09/19 06/10/19 06/11/19 23:59 23:59 23:59 Intake Total 2399.167 3314.167 1496.667 Output Total 4406 119 8015 Balance 9199.658 5393.167 -1658.333 - Lab Results Lab Results: 06/11/19 05:20 06/11/19 05:20 Other Lab Results: Lab Results x24hrs 06/11/19 06/11/19 Range/Units 05:20 05:20 WBC 6.2 (4.8-10.8) x10^3/uL RBC 2.59 L (4.20-5.40) 10^6/uL Hgb 8.6 L (12.0-16.0) g/dL Hct 25.5 L (37.0-47.0) % MCV 98.5 (81.0-99.0) fL MCH 33.2 H (27.0-31.0) pg MCHC 33.7 (32.0-36.0) g/dL RDW 12.4 (12.0-15.0) % Plt Count 272 (130-450) 10^3/uL MPV 9.5 (7.9-10.8) fL Neut # (Auto) 4.9 (1.5-6.6) 10^3/uL Lymph # (Auto) 0.8 L (1.5-3.5) 10^3/uL [place] # (Auto) 0.3 (0.0-1.0) 10^3/uL Eos # (Auto) 0.2 (0.0-0.7) 10^3/uL Baso # (Auto) 0.0 (0.0-0.1) 10^3/uL Absolute Nucleated RBC 0.00 x10^3/uL Nucleated RBC % 0.0 /100WBC Sodium 132 L (135-145) mmol/L Potassium 3.3 L (3.5-5.0) mmol/L Chloride 100 L (101-111) mmol/L Carbon Dioxide 25 (21-32) mmol/L Anion Gap 7.0 (6-13) BUN < 5 L (6-20) mg/dL Creatinine 0.4 (0.4-1.0) mg/dL Estimated GFR (MDRD) 158 (>89) Glucose 91 (70-100) mg/dL Calcium 8.0 L (8.5-10.3) mg/dL Total Bilirubin 0.8 (0.2-1.0) mg/dL AST 64 H (10-42) IU/L ALT 55 (10-60) IU/L Alkaline Phosphatase 113 (42-121) IU/L Total Protein 5.0 L (6.7-8.2) g/dL Albumin 2.5 L (3.2-5.5) g/dL Globulin 2.5 (2.1-4.2) g/dL Albumin/Globulin Ratio 1.0 (1.0-2.2) - Current Medications Current Medications: Current Medications Generic Name Dose Route Start Last Admin Trade Name Freq PRN Reason Stop Dose Admin Hydrocodone Bitart/Acetaminophen 1 tab 06/10/19 19:43 06/11/19 09:10 [place] 5/325 PO 1 tab Q4HR PRN Administration PAIN Sodium Chloride 1,000 mls @ 50 mls/hr 06/08/19 13:00 06/11/19 16:50 Normal Saline 0.9% IV 0 mls/hr .Q20H KIKI Infusion Acetaminophen 100 mls @ 400 mls/hr 06/08/19 16:00 06/11/19 16:50 Ofirmev IV Infused Q6H KIKI Infusion Multivitamins/Minerals 1 tab 06/11/19 09:00 06/11/19 10:32 Theragran M PO 1 tab DAILYWM KIKI Administration Pantoprazole Sodium 40 mg 06/07/19 13:00 06/11/19 06:27 Protonix IVP 40 mg QDAC KIKI Administration Sodium Chloride 10 ml 06/07/19 17:00 06/11/19 16:35 Normal Saline Flush 0.9% IVP 10 ml 0100,0900,1700 KIKI Administration Sodium Chloride 10 ml 06/07/19 12:41 06/11/19 06:28 Normal Saline Flush 0.9% IVP 10 ml PRN PRN Administration NEEDED PER PROVIDER ORDERS - Physical Exam Wound/Incisions: positive: Healing well, No drainage General Appearance: positive: No acute distress, Other (Still no bowel movement - patient is refusing to eat until bowel movement occurs.) Eyes Bilateral: positive: No lid inflammation, Conjunctivae nml, No scleral icterus ENT: positive: No signs of dehydration Neck: positive: Trachea midline. negative: Stiff neck Respiratory: positive: Chest non-tender, No respiratory distress, Breath sounds nml Cardiovascular: positive: Regular rate & rhythm, Systolic murmur Abdomen: positive: Tenderness (Incisional.), Abnml bowel sounds (Still somewhat decreased.) Skin: positive: Color nml Extremities: positive: Non-tender, Nml appearance Neurologic/Psychiatric: positive: Oriented x3, Motor nml, Sensation nml, Mood/affect nml Impression/Plan - Problem List Problem List: D4 s/p LAR-sigmoidectomy with mobilization splenic flexure for rectal prolapse with findings of rectal tumor and abnormal ovaries bilaterally resulting in bilateral oophorectomy 1) FEN Patient is on ERAS protocol. No getting the amount of "buy in" regarding early diet and increased ambulation. 2) DVT Prophylaxis with TEDs and venadynes. 3) WBC Normal today. 4) Pain Now on oral medication - will stop IV tylenol. 5) Pathology Pending on rectal tumor and ovaries. Discussed with patient. 6) Activity Must ambulate more today - discussed with patient.
[2019-06-12] MEDS: SODIUM CHLORIDE FLUSH 0.9% 10 ML SYRINGE IVP SCH ×3 (01:17→16:02)
[2019-06-12] MEDS: SODIUM CHLORIDE 0.9% 1,000 ML IV SCH ×2 (01:46→22:18)
[2019-06-12] MEDS: SODIUM CHLORIDE FLUSH 0.9% 10 ML SYRINGE IVP PRN ×2 (02:46→06:19)
[2019-06-12] MEDS: HYDROcod/ACETAM 5/325 MG TABLET PO PRN ×3 (05:11→20:32)
[2019-06-12] MEDS: PANTOPRAZOLE 40 MG VIAL IVP SCH (06:19)
[2019-06-12] MEDS: MULTIVITAMIN W/MINERALS TABLET PO SCH (09:01)
[2019-06-12] MEDS ORDERED: PROPOFOL 200 MG/20 ML VIAL IVP ONE (18:21)
[2019-06-12] MEDS ORDERED: ONDANSETRON 4 MG/2 ML VIAL IVP ONE (18:21)
[2019-06-12] MEDS ORDERED: DEXAMETHASONE 4 MG/ML VIAL IVP ONE (18:21)
[2019-06-12] MEDS ORDERED: ePHEDrine 50 MG/ML VIAL IVP ONE (18:21)
[2019-06-12] MEDS ORDERED: fentaNYL 100 MCG/2 ML VIAL IVP ONE (18:21)
[2019-06-12] MEDS ORDERED: MIDAZOLAM 2 MG/2 ML VIAL IVP ONE (18:21)
[2019-06-12] MEDS ORDERED: VECURONIUM 10 MG VIAL IVP ONE (18:21)
[2019-06-12] MEDS ORDERED: NEOSTIGMINE 1 MG/1 ML 10 ML MDV IVP ONE (18:21)
[2019-06-12] MEDS ORDERED: GLYCOPYRROLATE 1 MG/5 ML VIAL IVP ONE (18:21)
[2019-06-13] MEDS: HYDROcod/ACETAM 5/325 MG TABLET PO PRN ×4 (00:36→18:57)
[2019-06-13] MEDS: SODIUM CHLORIDE FLUSH 0.9% 10 ML SYRINGE IVP SCH ×3 (00:37→18:58)
[2019-06-13] MEDS: SODIUM CHLORIDE FLUSH 0.9% 10 ML SYRINGE IVP PRN ×3 (05:58→06:09)
[2019-06-13] MEDS: PANTOPRAZOLE 40 MG VIAL IVP SCH (06:00)
[2019-06-13] MEDS: MULTIVITAMIN W/MINERALS TABLET PO SCH (08:14)
[2019-06-13] MEDS ORDERED: POLYETHYLENE GLYCOL 3350 238 GM BOTTLE PO ONE (09:12)
[2019-06-13] MEDS: SODIUM CHLORIDE 0.9% 1,000 ML IV SCH (12:19)
--- NOTE | 2019-06-13 18:45 | PROVIDER PROGRESS NOTE ---
Subjective - General Admit Date: 06/07/19 Procedure Date: 06/07/19 Post Op Days: 6 Procedure Performed: Extended LAR/sigmoidectomy, mobilization splenic flexure, B oophorectomy - Review of Systems Wound/Incisions: positive: Healing well, No drainage General: positive: No symptoms HEENT: positive: No symptoms Pulmonary: positive: No symptoms Cardiovascular: positive: No symptoms Gastrointestinal: positive: No symptoms Genitourinary: positive: No symptoms Musculoskeletal: positive: No symptoms Skin: positive: No symptoms Psychiatric: positive: No symptoms Objective - Patient Data Reviewed Vital Signs: Yes Vital Signs: Vital Signs x48h Temp Pulse Pulse Resp BP BP Pulse Ox 06/13/19 15:37 37.1 C 76 20 138/80 H 96 06/13/19 13:00 36.7 C 66 14 147/73 H 94 Intake & Output: Intake and Output Totals x24h 06/11/19 06/12/19 06/13/19 23:59 23:59 23:59 Intake Total 2953.478 4686.333 561.667 Output Total 3655 3925 1500 Balance -1745.000 -2406.667 -938.333 - Lab Results Lab Results: 06/11/19 05:20 06/11/19 05:20 - Current Medications Current Medications: Current Medications Generic Name Dose Route Start Last Admin Trade Name Freq PRN Reason Stop Dose Admin Hydrocodone Bitart/Acetaminophen 1 tab 06/10/19 19:43 06/13/19 09:42 [place] 5/325 PO 1 tab Q4HR PRN Administration PAIN Hydromorphone HCl 1 mg 06/11/19 09:01 06/12/19 09:52 Dilaudid Inj Carp IVP 1 mg Q2H PRN Administration PAIN Sodium Chloride 1,000 mls @ 50 mls/hr 06/08/19 13:00 06/13/19 12:19 Normal Saline 0.9% IV 50 mls/hr .Q20H KIKI Administration Multivitamins/Minerals 1 tab 06/11/19 09:00 06/13/19 08:14 Theragran M PO 1 tab DAILYWM KIKI Administration Pantoprazole Sodium 40 mg 06/07/19 13:00 06/13/19 06:00 Protonix IVP 40 mg QDAC KIKI Administration Sodium Chloride 10 ml 06/07/19 17:00 06/13/19 08:14 Normal Saline Flush 0.9% IVP 10 ml 0100,0900,1700 KIKI Administration Sodium Chloride 10 ml 06/07/19 12:41 06/13/19 06:09 Normal Saline Flush 0.9% IVP 10 ml PRN PRN Administration NEEDED PER PROVIDER ORDERS - Physical Exam Wound/Incisions: positive: Healing well, No drainage General Appearance: positive: No acute distress Eyes Bilateral: positive: No lid inflammation, Conjunctivae nml, No scleral icterus ENT: positive: No signs of dehydration Neck: positive: Trachea midline Respiratory: positive: Chest non-tender, No respiratory distress, Breath sounds nml Cardiovascular: positive: Regular rate & rhythm Abdomen: positive: No organomegaly, Nml bowel sounds, No distention, Tenderness (Incisional.) Extremities: positive: Non-tender, Nml appearance Neurologic/Psychiatric: positive: Oriented x3, Motor nml, Sensation nml, Mood/affect nml Impression/Plan - Problem List Problem List: D6 s/p LAR-sigmoidectomy with mobilization splenic flexure for rectal prolapse with findings of rectal tumor and abnormal ovaries bilaterally resulting in bilateral oophorectomy 1) FEN Patient is on ERAS protocol. Not getting the amount of "buy in" regarding early diet and increased ambulation. Patient has been instructed daily and BID by me and dietary about the importance of eating with little to no result. 2) DVT Prophylaxis with TEDs and venadynes. 3) Pain Oral medication with IV for breakthrough. 4) Pathology Very large rectal polyp and benign ovarian pathology. Discussed at length with patient. 5) Activity It has been an absolute struggle to get the patient to ambulate. Again emphasized importance. 6) Bowels Gave Miralax today in an effort to "jump start" bowel function with a positive result of liquid stool.
[2019-06-14] MEDS: SODIUM CHLORIDE FLUSH 0.9% 10 ML SYRINGE IVP SCH ×2 (00:10→17:03)
[2019-06-14] MEDS: PANTOPRAZOLE 40 MG VIAL IVP SCH (06:07)
[2019-06-14] MEDS: SODIUM CHLORIDE FLUSH 0.9% 10 ML SYRINGE IVP PRN (06:07)
[2019-06-14] MEDS: MULTIVITAMIN W/MINERALS TABLET PO SCH (08:27)
[2019-06-14] MEDS: HYDROcod/ACETAM 5/325 MG TABLET PO PRN (16:20)
[2019-06-14] MEDS: SODIUM CHLORIDE 0.9% 1,000 ML IV SCH (17:03)
--- NOTE | 2019-06-14 21:57 | Discharge Plan ---
Discharge Plan Problem Reviewed?: Yes Disposition: Home, Self Care Condition: Good Prescriptions: HYDROcod/ACETAM 5/325 [[place] 5/325] 1 tab PO Q4HR PRN #10 tablet PRN Reason: Pain Diet: Regular Activity Restrictions: No lifting >15 pounds for 6 weeks. Shower Restrictions: No Driving Restrictions: Yes (Until seen in office.) Weight Bearing: Full Weight Assessment: Increase protein intake. Call with surgical questions or concerns. Call on Monday for appointment in 7-10 days. Keep stools soft with fiber and fluids. No Smoking: If you smoke, Please STOP! Call for help. Follow-up with: Werner Pisano MD [Primary Care Provider] - Rod Gan MD [Provider Admit Priv/Credential] -
--- NOTE | 2019-06-14 22:01 | DISCHARGE SUMMARY ---
"Discharge Summary Admit Date: 06/07/19 Discharge Date: 06/14/19 Discharging Provider: Rod Gan MD Code Status: Attempt Resuscitation Condition at Discharge: Good Discharge Disposition: 01 Home, Self Care - DIAGNOSES Admission Diagnoses: Rectal prolapse Discharge Diagnoses with Status of Each Condition: Resected rectal prolapse and in the process resected a large rectal polyp and bilateral ovarian pathology. - CONSULTS | PROCEDURES Consultations: None. Procedures: Sigmoidectomy-LAR and bilateral oophorectomy - HOSPITAL COURSE Hospital Course: Uncomplicated but patient was slow to mobilize and eat. - ALLERGIES Allergies/Adverse Reactions: Allergies Allergy/AdvReac Type Severity Reaction Status Date / Time No Known Drug Allergies Allergy Verified 07/08/15 12:17 - MEDICATIONS Home Medications: Ambulatory Orders Medication Instructions Recorded Confirmed Cholecalciferol (Vitamin D3) 2,000 unit PO DAILY 06/04/19 06/04/19 [Vitamin D3] HYDROcod/ACETAM 5/325 [[place] 5/325] 1 - 2 ea PO Q6H PRN 06/04/19 06/07/19 Lactobacillus Acidophilus 1 each PO DAILY 06/04/19 06/04/19 [Probiotic Acidophilus] Ubidecarenone/Vit E Acetate [Co 1 each PO DAILY 06/04/19 06/04/19 Q-10 100 mg Softgel] HYDROcod/ACETAM 5/325 [[place] 5/325] 1 tab PO Q4HR PRN #10 tablet 06/14/19 - PHYSICAL EXAM AT DISCHARGE General Appearance: positive: No acute distress Eyes Bilateral: positive: No lid inflammation, Conjunctivae nml, No scleral icterus ENT: positive: No signs of dehydration Neck: positive: Trachea midline Respiratory: positive: Chest non-tender, No respiratory distress, Breath sounds nml Cardiovascular: positive: Regular rate & rhythm, Systolic murmur Abdomen: positive: Non-tender, Nml bowel sounds, No distention, Other (I removed the kadie and patient tolerated well.) Skin: positive: Color nml Extremities: positive: Non-tender, Nml appearance Neurologic/Psychiatric: positive: Oriented x3, Motor nml, Sensation nml, Mood/affect nml - LABS Result Diagrams: 06/11/19 05:20 06/11/19 05:20 - FOLLOW UP Follow Up: Rod Gan in 7-10 days. - TIME SPENT Time Spent in Discharge (Minutes): 45"
[2019-06-14 22:07] VITALS: BP 129/66
== END 2019-06-14 22:30 | disposition home or self-care (01) | DRG 330 ==
LOC: MS2 08:06
PROVIDERS: ADMIT Surgery; ATTEND Surgery
PROC: 0DBN0ZZ Excision of Sigmoid Colon, Open Approach (ICD-10-PCS; 2019-06-07)
PROC: 0UT20ZZ Resection of Bilateral Ovaries, Open Approach (ICD-10-PCS; 2019-06-07)
PROC: 0DBP0ZZ Excision of Rectum, Open Approach (ICD-10-PCS; principal; 2019-06-07 09:45)
DX: D12.5 Benign neoplasm of sigmoid colon (principal); E87.1 Hypo-osmolality and hyponatremia; E46 Unspecified protein-calorie malnutrition; K62.3 Rectal prolapse; D27.1 Benign neoplasm of left ovary; D27.0 Benign neoplasm of right ovary; K57.30 Diverticulosis of large intestine without perforation or abscess without bleeding; E87.5 Hyperkalemia; E87.8 Other disorders of electrolyte and fluid balance, not elsewhere classified; Z79.891 Long term (current) use of opiate analgesic; Z86.79 Personal history of other diseases of the circulatory system
CPT/HCPCS: 36415; 80053; 85025; 88304; 88305; 88309; A9270; J0131; J1170; J7120

== ENCOUNTER 2024-02-20 08:00 | Outpatient (CLI) | payer MEDICARE ==
--- NOTE | 2024-02-20 16:54 | XRAY Report ---
PROCEDURE: Finger(s) RT INDICATIONS: PUNCTURE WOUND OF RIGHT THUMB TECHNIQUE: AP hand, 2 views of the first finger(s) acquired. COMPARISON: None. FINDINGS: Bones: No fractures or dislocations. No suspicious bony lesions. Soft tissues: No suspicious soft tissue calcifications or masses. Sub-1 mm echogenic focus at the volar surface of the distal thumb. IMPRESSION: Sub-1 mm echogenic focus at the volar surface of the distal thumb, could be internal or external to t he patient. Reviewed by: Shashi Ortiz MD on 02/20/2024 4:53 PM PDT Approved by: Shashi Ortiz MD on 02/20/2024 4:53 PM PDT Station ID: [id number]
== END 2024-02-20 23:59 | disposition home or self-care (01) ==
LOC: DI.S 08:00
PROVIDERS: ATTEND Physician Assistant Medical
DX: S61.031A Puncture wound without foreign body of right thumb without damage to nail, initial encounter (principal); L03.011 Cellulitis of right finger
CPT/HCPCS: 87070; 87205

== ENCOUNTER 2024-04-24 13:30 | Outpatient (CLI) | payer MEDICARE ==
[2024-04-24 19:45] LABS: BASOPHILS % (AUTO) 0.4 %; HCT - HEMATOCRIT 39.1 % (37.0-47.0); HGB - HEMOGLOBIN 13.5 g/dL (12.0-16.0); LYMPHOCYTES # (AUTO) 0.6 10^3/uL (1.5-3.5); LYMPHOCYTES % (AUTO) 9.8 %; MEAN CORPUSCULAR HEMOGLOBIN 34.5 pg (27.0-31.0); MEAN CORPUSCULAR HGB CONC 34.5 g/dL (32.0-36.0); MEAN PLATELET VOLUME 11.6 fL (7.9-10.8); MONOCYTES # (AUTO) 0.4 10^3/uL (0.0-1.0); MONOCYTES % (AUTO) 7.1 %; NEUTROPHILS # (AUTO) 4.6 10^3/uL (1.5-6.6); NEUTROPHILS % (AUTO) 82.3 %; PLT - PLATELET COUNT 138 10^3/uL (130-450); RED BLOOD COUNT 3.91 10^6/uL (4.20-5.40); RED CELL DISTRIBUTION WIDTH 12.6 % (12.0-15.0); WHITE BLOOD COUNT 5.6 x10^3/uL (4.8-10.8)
[2024-04-24 19:58] LABS: ALBUMIN 4.4 g/dL (3.2-5.5); ALBUMIN/GLOBULIN RATIO 1.9 (1.0-2.2); BILIRUBIN,TOTAL 0.9 mg/dL (0.2-1.0); CALCIUM 9.3 mg/dL (8.5-10.3); CREATININE 0.5 mg/dL (0.6-1.3); POTASSIUM 3.7 mmol/L (3.5-4.5); TOTAL PROTEIN 6.7 g/dL (6.4-8.9)
== END 2024-04-24 13:31 | disposition home or self-care (01) ==
LOC: LAB.S 13:30
PROVIDERS: ATTEND Physician Assistant
DX: F10.130 Alcohol abuse with withdrawal, uncomplicated (principal)
CPT/HCPCS: 36415; 80053; 85025

== ENCOUNTER 2024-04-26 11:21 | Emergency (ER) | payer MEDICARE ==
[2024-04-26 11:51] VITALS: BP 104/65
--- NOTE | 2024-04-26 12:04 | ED Physician Documentation ---
History of Present Illness - Stated complaint Stated Complaint: PHY REF POST LAB DRAW - Chief complaint Chief Complaint: General - History obtained from History obtained from: Patient - Additonal information Additional information: She quit drinking 5 days ago. She was a chronic alcoholic. She felt bad the ensuing few days with sweats and shakes, she is feeling better from that perspective. She finally got a good night sleep last night. She went to the clinic and had labs drawn yesterday which were notable for hyponatremia at 124 and was advised to come to the emergency department. She does not take any diuretics or blood pressure medications. Looking at the chart her usual sodium is between 128 and 130 without other identifiable reason other than potentially alcohol abuse. PD PAST MEDICAL HISTORY - Past Medical History Cardiovascular: Other Respiratory: None Endocrine/Autoimmune: None GI: Hemorrhoids, Other : None HEENT: Chronic vision loss Psych: None Musculoskeletal: Osteoarthritis Derm: None - Past Surgical History Past Surgical History: Yes General: Appendectomy - Present Medications Home Medications: Ambulatory Orders Medication Instructions Recorded Confirmed Cholecalciferol (Vitamin D3) 2,000 unit PO DAILY 06/04/19 06/04/19 [Vitamin D3] HYDROcod/ACETAM 5/325 [[place] 5/325] 1 - 2 ea PO Q6H PRN 06/04/19 06/07/19 Lactobacillus Acidophilus 1 each PO DAILY 06/04/19 06/04/19 [Probiotic Acidophilus] Ubidecarenone/Vit E Acet [Co Q-10 1 each PO DAILY 06/04/19 06/04/19 100 mg Softgel] HYDROcod/ACETAM 5/325 [[place] 5/325] 1 tab PO Q4HR PRN #10 tablet 06/14/19 - Allergies Allergies/Adverse Reactions: Allergies Allergy/AdvReac Type Severity Reaction Status Date / Time No Known Drug Allergies Allergy Verified 04/26/24 11:54 - Social History Does the pt smoke?: No Smoking Status: Never smoker Does the pt have substance abuse?: No - Immunizations Immunizations are current?: Yes PD ED PE NORMAL - Vitals Vital signs reviewed: Yes - General General: Alert and oriented X 3, No acute distress - HEENT HEENT: PERRL, EOMI - Neck Neck: Supple, no meningeal sign, No bony TTP - Cardiac Cardiac: RRR, No murmur - Respiratory Respiratory: No respiratory distress, Clear bilaterally - Abdomen Abdomen: Normal bowel sounds, Soft, Non tender - Back Back: No CVA TTP, No spinal TTP - Derm Derm: Normal color, Warm and dry - Neuro Neuro: Alert and oriented X 3 Eye Opening: Spontaneous Motor: Obeys Commands Verbal: Oriented GCS Score: 15 - Psych Psych: Normal mood, Normal affect Results - Vitals Vitals: Vital Signs - 24 hr 04/26/24 11:32 Temperature 36.4 C L Heart Rate 98 Respiratory 18 Rate Blood Pressure 104/65 O2 Saturation 100 Oxygen O2 Source Room air PD Medical Decision Making - ED course ED course: 74-year-old woman with relatively asymptomatic hyponatremia likely from alcohol use and withdrawal. She is out of the acute withdrawal stage with unremarkable vital signs and normal lab. Plan for 1 L normal saline and discharge. Departure - Departure Disposition: 01 Home, Self Care Clinical Impression: Hyponatremia Condition: Good Record reviewed to determine appropriate education?: Yes Instructions: ED Hyponatremia Comments: Your sodium yesterday was low at 124. Looking back at prior charts your "usual" sodium is usually in the range of 128-130 which was also low. This may have been from alcohol use alone and as such now that you are out of the acute phase of use and withdrawal would presume this will normalize without other intervention other than the sodium chloride saline you received here. You should feel free to liberally salt your food and I encourage you to stay sober and congratulate you on your efforts so far. You should have your sodium level checked in about a week which she can follow-up in the clinic for. Return if worse.
[2024-04-26] MEDS: SODIUM CHLORIDE 0.9% 1,000 ML IV STA (12:15)
[2024-04-26 13:07] VITALS: O2SAT 98
== END 2024-04-26 12:52 | disposition home or self-care (01) ==
LOC: ED 11:21
DX: E87.1 Hypo-osmolality and hyponatremia (principal)
CPT/HCPCS: 36415; 96360; 99283

== ENCOUNTER 2024-05-01 11:49 | Inpatient (IN) | payer MEDICARE ==
--- NOTE | 2024-05-01 12:16 | ED Physician Documentation ---
History of Present Illness - Stated complaint Stated Complaint: CONFUSION POST ETOH - Chief complaint Chief Complaint: General - Additonal information Additional information: 74 year-old female presents emergency department for severe profound weakness. Patient quit drinking about 10 days ago cold turkey she normally drinks about 5 to 6 glasses of wine a day. She was seen in the emergency department on Monday because the clinic told her to come to the hospital for significant hyponatremia 124. Her sodium baseline is usually between 120 and 30. Patient says that she has been having significant weakness to the point where she is unable to get up and ambulate she also has new left hand/arm swelling. She is unsure if she has had any fevers or chills. Ongoing nausea also reports that she has not had a bowel movement now for about the last week. 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 : None HEENT: Chronic vision loss Psych: None Musculoskeletal: Osteoarthritis Derm: None - Past Surgical History Past Surgical History: Yes General: Appendectomy - Present Medications Home Medications: Ambulatory Orders Medication Instructions Recorded Confirmed No Known Home Medications 05/01/24 05/01/24 - Allergies Allergies/Adverse Reactions: Allergies Allergy/AdvReac Type Severity Reaction Status Date / Time No Known Drug Allergies Allergy Verified 05/01/24 12:16 - Social History Does the pt smoke?: No Smoking Status: Never smoker Does the pt drink ETOH?: Yes Does the pt have substance abuse?: No - Immunizations Immunizations are current?: Yes - POLST Patient has POLST: No PD ED PE NORMAL - Vitals Vital signs reviewed: Yes - General General: Alert and oriented X 3, No acute distress, Well developed/nourished - HEENT HEENT: Atraumatic, PERRL - Cardiac Cardiac: RRR - Respiratory Respiratory: No respiratory distress, Clear bilaterally - Abdomen Abdomen: Normal bowel sounds, Soft, Non tender, No organomegaly - Back Back: No CVA TTP - Derm Derm: Other (left arm erythema, warm to the touch with swelling and very tender) - Extremities Extremities: No deformity - Neuro Neuro: Alert and oriented X 3, 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, No motor deficit, No sensory deficit, Normal speech - Psych Psych: Normal mood Results - Vitals Vitals: Vital Signs - 24 hr 05/01/24 05/01/24 11:51 12:03 Temperature 38.2 C H Heart Rate 106 H 101 H Respiratory 16 13 Rate Blood Pressure 104/56 L 105/68 O2 Saturation 96 95 Oxygen O2 Source Room air - Labs Labs: Laboratory Tests 05/01/24 05/01/24 05/01/24 12:25 12:27 12:27 WBC 16.6 H RBC 3.50 L Hgb 12.0 Hct 34.0 L MCV 97.1 MCH 34.3 H MCHC 35.3 RDW 13.3 Plt Count 219 MPV 10.3 Neut # (Auto) 15.4 H Lymph # (Auto) 0.4 L [place] # (Auto) 0.5 Eos # (Auto) 0.0 Baso # (Auto) 0.0 Absolute Nucleated RBC 0.00 Nucleated RBC % 0.0 Sodium 128 L Potassium 3.2 L Chloride 95 L Carbon Dioxide 23 Anion Gap 10.0 BUN 8 Creatinine 0.5 L Estimated GFR (MDRD) 121 Glucose 109 H Lactic Acid Calcium 9.2 Magnesium 1.5 L Total Bilirubin 1.0 AST 35 ALT 36 Alkaline Phosphatase 266 H Total Protein 6.1 L Albumin 3.6 Globulin 2.5 Albumin/Globulin Ratio 1.4 Lipase 11 Urine Color DARK YELLOW Urine Clarity CLEAR Urine pH 6.0 Ur Specific [place] 1.015 Urine Protein 30 H Urine Glucose (UA) NEGATIVE Urine Ketones 40 H Urine Occult Blood MODERATE H Urine Nitrite NEGATIVE Urine Bilirubin SMALL H Urine Urobilinogen 4 H Ur Leukocyte Esterase NEGATIVE Urine RBC 6-10 H Urine WBC 6-10 H Urine WBC Clumps PRESENT Ur Squamous Epith Cells FEW Squamous Amorphous Sediment Marked Urine Bacteria Moderate H Urine Casts 3-5 Hyaline Casts Urine Mucus Marked Strands Ur Microscopic Review INDICATED Urine Culture Comments NOT INDICATED 05/01/24 12:27 WBC RBC Hgb Hct MCV MCH MCHC RDW Plt Count MPV Neut # (Auto) Lymph # (Auto) [place] # (Auto) Eos # (Auto) Baso # (Auto) Absolute Nucleated RBC Nucleated RBC % Sodium Potassium Chloride Carbon Dioxide Anion Gap BUN Creatinine Estimated GFR (MDRD) Glucose Lactic Acid 1.0 Calcium Magnesium Total Bilirubin AST ALT Alkaline Phosphatase Total Protein Albumin Globulin Albumin/Globulin Ratio Lipase Urine Color Urine Clarity Urine pH Ur Specific [place] Urine Protein Urine Glucose (UA) Urine Ketones Urine Occult Blood Urine Nitrite Urine Bilirubin Urine Urobilinogen Ur Leukocyte Esterase Urine RBC Urine WBC Urine WBC Clumps Ur Squamous Epith Cells Amorphous Sediment Urine Bacteria Urine Casts Urine Mucus Ur Microscopic Review Urine Culture Comments - Rads (name of study) Left forearm x-rays Relevant Findings:: Final report received, EMP independent interpretation of test, Other (No acute bony abnormalities or findings) Left wrist x-rays Relevant Findings:: Final report received, EMP independent interpretation of test, Other (No acute bony abnormalities or findings) PD Medical Decision Making - ED course ED course: 74-year-old female presents emergency department for profound weakness. Labs are completed for further evaluation she does have significant leukocytosis 16.6 she also was tachycardic with heart rate of 106 and a fever of 38.2 making her meet SIRS criteria. She does have low sodium at 128 but this patient's baseline per my chart review. She also has hypokalemia 3.2, 40 mEq of potassium was given for replacement as well as hypomagnesemia 1.5 and she was given 400 mg of magnesium oxide for replacement. Urinalysis does not reveal any leukocytes or nitrites making me less concerned or suspicious of possible UTI. Because of patient's labs and vital signs meeting SIRS criteria and her left upper extremity erythema that I believe is cellulitis as well as her profound weakness of believe the patient would benefit from hospitalization. 2 sets of blood cultures were collected and patient was started on IV cefazolin. She was given 1 L of IV fluids As well as IV Zofran to help with nausea. I spoke with Dr. Briseno hospitalist who has agreed to admit the patient for further hospi talization and IV antibiotics and patient is agreeable to be admitted. Departure - Departure Disposition: [facility] DC/Xfer Clinical Impression: Left arm cellulitis, Hypomagnesemia, Hypokalemia, Weakness, Hyponatremia Forms: PCP List
[2024-05-01 12:36] LABS: BASOPHILS % (AUTO) 0.2 %; LYMPHOCYTES # (AUTO) 0.4 10^3/uL (1.5-3.5); LYMPHOCYTES % (AUTO) 2.6 %; MEAN CORPUSCULAR HEMOGLOBIN 34.3 pg (27.0-31.0); MEAN CORPUSCULAR HGB CONC 35.3 g/dL (32.0-36.0); MEAN CORPUSCULAR VOLUME 97.1 fL (81.0-99.0); MEAN PLATELET VOLUME 10.3 fL (7.9-10.8); MONOCYTES # (AUTO) 0.5 10^3/uL (0.0-1.0); MONOCYTES % (AUTO) 3.2 %; NEUTROPHILS # (AUTO) 15.4 10^3/uL (1.5-6.6); NEUTROPHILS % (AUTO) 92.8 %; PLT - PLATELET COUNT 219 10^3/uL (130-450); RED CELL DISTRIBUTION WIDTH 13.3 % (12.0-15.0); WHITE BLOOD COUNT 16.6 x10^3/uL (4.8-10.8)
[2024-05-01 13:03] LABS: BILIRUBIN,URINE SMALL (NEGATIVE); GLUCOSE, URINE (UA) NEGATIVE (NEGATIVE); KETONES,URINE (UA) 40 mg/dL (NEGATIVE); LEUKOCYTE ESTERASE, URINE NEGATIVE (NEGATIVE); NITRITE,URINE NEGATIVE (NEGATIVE); OCCULT BLOOD,URINE MODERATE (NEGATIVE); PROTEIN,URINE 30 mg/dL (NEGATIVE); UROBILINOGEN,URINE 4 E.U./dL (NORMAL)
[2024-05-01] MEDS: SODIUM CHLORIDE 0.9% 1,000 ML IV ONE ×2 (13:03→16:00)
--- NOTE | 2024-05-01 13:03 | XRAY Report ---
PROCEDURE: Hand 3+V LT INDICATIONS: left hand swelling TECHNIQUE: 3 views of the hand(s) acquired. COMPARISON: None. FINDINGS: Bones: No fractures or dislocations. There is osteopenia. Osteoarthritic changes are noted throughou t left hand and wrist. No gross bony erosive changes. No suspicious bony lesions. Soft tissues: No suspicious soft tissue calcifications or masses. IMPRESSION: Osteopenia. Left hand and wrist joint osteoarthritis. No acute fracture or dislocation. No gross bony erosive changes. Reviewed by: Shaun Farr MD on 05/01/2024 1:02 PM PDT Approved by: Shaun Farr MD on 05/01/2024 1:02 PM PDT Station ID: [id number]
[2024-05-01 13:09] LABS: CLARITY,URINE CLEAR (CLEAR)
[2024-05-01 13:09] LABS: ALBUMIN 3.6 g/dL (3.2-5.5); ALBUMIN/GLOBULIN RATIO 1.4 (1.0-2.2); CALCIUM 9.2 mg/dL (8.5-10.3); CREATININE 0.5 mg/dL (0.6-1.3); MAGNESIUM 1.5 mg/dL (1.7-2.3); POTASSIUM 3.2 mmol/L (3.5-4.5); TOTAL PROTEIN 6.1 g/dL (6.4-8.9)
--- NOTE | 2024-05-01 13:19 | XRAY Report ---
PROCEDURE: Forearm LT INDICATIONS: Left arm swellimg TECHNIQUE: 2 views of the forearm were acquired. COMPARISON: None. FINDINGS: Bones: Osteopenic changes. No acute displaced fracture or dislocation. No radiographic osseous erosio ns. Soft tissues: Possible soft tissue swelling. No suspicious calcifications. IMPRESSION: No acute radiographic abnormality in the bones. If there is high concern for further derangement, consider MRI evaluation. Reviewed by: Jaskaran Murillo MD on 05/01/2024 1:17 PM PDT Approved by: Jaskaran Murillo MD on 05/01/2024 1:17 PM PDT Station ID: [id number]
[2024-05-01 13:24] LABS: SQUAMOUS EPITHELIAL CELL,UR FEW Squamous (<= Few); WBC CLUMPS,URINE PRESENT
[2024-05-01 13:25] LABS: AMORPHOUS SEDIMENT,UR Marked /LPF; BACTERIA,URINE Moderate /HPF (None Seen); MUCUS,URINE Marked Strands
[2024-05-01] MEDS: MAGNESIUM OXIDE 400 MG TABLET PO STA (13:34)
[2024-05-01] MEDS: ONDANSETRON 4 MG/2 ML VIAL IVP STA (13:34)
[2024-05-01] MEDS: POTASSIUM CHLORIDE 20 MEQ TABLET PO STA (13:35)
[2024-05-01] MEDS ORDERED: ONDANSETRON 4 MG/2 ML VIAL IVP PRN (14:14)
[2024-05-01] MEDS ORDERED: SODIUM CHLORIDE FLUSH 0.9% 10 ML SYRINGE IVP PRN (14:14)
[2024-05-01] MEDS: ceFAZolin (2G) 2 GM in SODIUM CHLORIDE 0.9% 100ML 100 ML IV STA (14:28)
[2024-05-01 14:50] LABS: PHOSPHORUS 2.8 mg/dL (2.5-5.0)
[2024-05-01 14:51] LABS: CRP - C-REACTIVE PROTEIN 30.4 mg/dL (<0.5)
--- NOTE | 2024-05-01 14:55 | HISTORY & PHYSICAL EXAMINATION ---
Chief Complaint - Chief Complaint Chief Complaint: I feel weak History of Present Illness - Admitted From Admitted From:: [facility] Emergency Department - History Obtained From Records Reviewed: EMR records History obtained from: Patient and friend Exam Limitations: None - History of Present Illness HPI Comment/Other: Mandi Izquierdo is a 74 year old woman with history of alcohol abuse and lower abdominal hernia after colectomy 2019 who presents with generalized weakness. She has a longstanding history of alcohol abuse and typically will drink 5 to 6 glasses of wine daily. Approximately 10 days ago she decided to stop drinking "cold turkey". She had minor withdrawal symptoms however she did not have significant symptoms from this though she did have anorexia and poor appetite aside from drinking water. Labs were checked as an outpatient and her sodium was found to be 124. She was referred to the emergency department here at [facility] and she was given IV fluids and ultimately discharged home as she has a history of chronic hyponatremia in the range of 128-130. Since going home the patient indicates that she has been feeling worse with increased generalized weakness. On Monday, April 28 the patient started to notice redness around her left hand and wrist region. She denied having any puncture wounds or traumatic injury at the time. The redness has spread to include most of the back of her left hand and is now extending up her left forearm. This is initially associated with some pain however she has full range of motion of her wrist. This is also associated with fevers, chills and night sweats. She did have a dry nonproductive cough for the past few days however that has since resolved. She denies having any dyspnea, nausea, vomiting, abdominal pain but does report having poor appetite and constipation. She has also been having problems sleeping but denies having any headaches, vision hinojosa es. In the past 24 hours she has had difficulty ambulating as she feels too weak in general along with having some left flank pain. She denies having any lower extremity paresthesias, saddle anesthesia, urinary/fecal incontinence or retention. She ultimately came to the ER for further evaluation given the symptoms. In the emergency department she was found to be febrile to 38.2 and tachycardic to 106 with a blood pressure in the 90 to low 100 systolic range. Labs showed a WBC of 16.6 along with a sodium of 128, potassium 3.2 and magnesium 1.5 but she did have a normal lactic acid of 1.0. Hand and wrist/forearm x-rays showed no subcutaneous emphysema or foreign body. Her left forearm and hand appeared cellulitic in nature and she was given IV cefazolin after receiving 1 L of IV fluid as well as having 2 blood cultures obtained. She was admitted for further care and evaluation of her deconditioning, sepsis from cellulitis and other medical issues. History - Past Medical History Cardiovascular: reports: Other (Reports "irregular heart rate" but denies atrial fibrillation/flutter, SVT, etc. She cannot recall specifics. 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 : reports: None HEENT: reports: Chronic vision loss Psych: reports: None Musculoskeletal: reports: Osteoarthritis Derm: reports: None MRSA Hx?: No - Past Surgical History General: reports: Appendectomy, Bowel surgery (Sigmoidectomy) /FIELD ENGINEER: reports: Oophrectomy (Bilateral oophorectomy) - Family & Social History Family History: Other family: Hypertension Living arrangement: At home - Substance History Use: Uses substance without health or social issues: Tobacco (Former tobacco use), Alcohol (Typically drank 4-5 glasses of wine per day, stopped April 22 2024.) - POLST Patient has POLST: No POLST Status: DNR Meds/Allgy - Home Medications Home Medications: Ambulatory Orders Medication Instructions Recorded Confirmed No Known Home Medications 05/01/24 05/01/24 - Allergies Allergies/Adverse Reactions: Allergies Allergy/AdvReac Type Severity Reaction Status Date / Time No Known Drug Allergies Allergy Verified 05/01/24 12:16 Review of Systems - Constitutional Constitutional: reports: Fatigue, Fever, Chills, Malaise, Weakness, Poor appetite, Diaphoresis, Night sweats - Eyes Eyes: reports: Vision loss (Chronic vision loss) - Ears, Nose & Throat Ears, Nose & Throat: denies: Tinnitus, Vertigo - Cardiovascular Cariovascular: reports: Irregular heart rate (Reports history of irregular heart rate). denies: Palpitations, Chest pain, Edema, Syncope, Exertional dyspnea - Respiratory Respiratory: reports: Cough. denies: Sputum production, Wheezing, Hemoptysis, Orthopnea, SOB at rest, Pleuritic pain - Gastrointestinal Gastrointestinal: reports: Constipation, Nausea. denies: Abdominal pain, Abdominal distention, Diarrhea, Rectal bleeding, Black stools, Bloody stools, Vomiting - Genitourinary Genitourinary: reports: Flank pain (Left flank pain). denies: Dysuria, Freq uency, Urgency - Musculoskeletal Musculoskeletal: reports: Back pain - Integumentary Integumentary: reports: Rash (Left wrist and arm redness) - Neurological Neurological: reports: General weakness. denies: Focal weakness, Headache, Dizziness, Numbness - Psychiatric Psychiatric: denies: Delusions, Hallucinations - Endocrine Endocrine: denies: Polydypsia - Hematologic/Lymphatic Hematologic/Lymphatic: denies: Blood clots Exam - Vital Signs Reviewed Vital Signs: Yes Vital Signs: Vital Signs x48h Temp Pulse Resp BP Pulse Ox 05/01/24 14:03 104/70 95 05/01/24 12:03 101 H 13 105/68 95 05/01/24 11:51 38.2 C H 106 H 16 104/56 L 96 - Physical Exam General Appearance: positive: No acute distress, Alert, Other (Appears chronically ill and fatigued, but no active distress) Eyes Bilateral: positive: Normal inspection, PERRL, EOMI ENT: positive: ENT inspection nml, Pharynx nml, Dry mucous membranes Neck: positive: Nml inspection, Thyroid nml, No JVD, Trachea midline Respiratory: positive: Chest non-tender, No respiratory distress, Rales (Faint inspiratory crackles in both bases). negative: Wheezes, Rhonchi Cardiovascular: positive: Regular rate & rhythm, No gallop, Systolic murmur (Loud and harsh 3/6 systolic murmur at LLSB and heard throughout the precordium). negative: Extrasystoles Peripheral Pulses: positive: 2+ Abdomen: positive: Non-tender, No organomegaly, Nml bowel sounds, Other (Left lower/midline hernia that is large and partially reducible but non-tender) Back: positive: Nml inspection, Other (Reports pain on left flank, but no CVA tenderness noted. No deformity or other pathology noted. No tenderness noted on left paraspinal muscles.) Skin: positive: Color nml, No rash, Warm, Dry Extremities: positive: Other (Left dorsum of hand erythematous. Slightyl boggy on lateral aspect of wrist/hand with slight induration but no fluctuance noted. Erythema extends from hand to mid-forearm on left. No obvious wound. No purulent drainage.) Neurologic/Psychiatric: positive: Oriented x3, CN's nml (2-12), Sensation nml, Other (Strength 5/5 in both upper extremities. Strength 4/5 in both lower extremities.) Reflexes: Ankle (R): 2+, Ankle (L): 2+ Babinski Reflex: Right: Down, Left: Down Sepsis Event Note (H) - Evaluation Current Stage of Sepsis: Sepsis Possible source of Sepsis: positive: Skin/soft tissue Confirmed Source and Organism (if known) of Sepsis: Cellulitis of Left Upper Extremity Conclusion/Plan - Problem List (1) Left arm cellulitis Conclusion/Plan: She first noted redness, swelling and pain on Monday04/28/24. She denies any puncture wound or traumatic event that may have started this. Since then it has spread and worsened, associated with subjective fevers, chills and night sweats. -XR of the hand/wrist/forearm show no subcutaneous emphysema, foreign body or other pathology. -Will broaden antibiotics to IV Vancomycin and Ceftriaxone given her concomitant sepsis. -Will levi the cellulitis borders. If extending past margin rapidly, would add Clindamycin and discuss with surgery. -Currently does not appear to be consistent with a necrotizing infection. Appears more consistent with streptococcal infection such as erysipelas. -Check ESR, CRP, Procalcitonin. -Consider CT with IV contrast if worsening or develops signs of abscess formation. (2) Sepsis Conclusion/Plan: Her sepsis is secondary to her left upper extremity cellulitis. She meets criteria for sepsis due to tachycardia, leukocytosis and fever in the setting of left upper extremity cellulitis. -Lactic acid is 1.0 and she has no evidence of end-organ dysfunction. -Received 1 L normal saline bolus in the emergency department. Will give an additional 1 L normal saline now to complete a 30 cc/kg bolus. -Placed on continuous IV fluids after the second liter bolus is completed. -Continue IV antibiotics as noted above. Blood cultures are pending. -Will obtain a chest x-ray along with COVID/flu/RSV testing given her dry cough. Qualifiers: Sepsis acute organ dysfunction status: without acute organ dysfunction (3) Hyponatremia Conclusion/Plan: She has a history of chronic hyponatremia, which was likely alcohol related (beer potomania). After she stopped drinking she has had low solute intake but has been trying to drink water to stay hydrated. 5 days ago when she presented to the emergency department her sodium was 124 which was likely secondary to poor solute intake, increased free water intake in the setting of chronic hyponatremia. Her sodium has since improved however it is still low due to the same reasons noted above. -Currently receiving isotonic IV fluids as noted above for her sepsis. -Her baseline sodium appears to be 128-130. -Repeat daily BMP to monitor sodium level. (4) Hypokalemia Conclusion/Plan: She received oral supplements in the ED for a potassium of 3.2. -Will place on IV fluids containing additional potassium. -Check daily chem panel and magnesium. (5) Hypomagnesemia Conclusion/Plan: She received replacement therapy for a magnesium level of 1.5 while in the ED. -Repeat magnesium level tomorrow morning. (6) Generalized weakness Conclusion/Plan: Her generalized weakness is likely multifactorial secondary to hyponatremia, hypomagnesemia, hypokalemia in the setting of alcohol abuse and active sepsis. -Correcting electrolyte disturbances as noted below. Check phosphorus level. -Treat sepsis as noted above. -PT/OT evaluation. (7) Systolic murmur Conclusion/Plan: She denies having a history of a murmur but on exam she has a loud/harsh 3/6 systolic murmur throughout her precordium. -Will obtain an echocardiogram for further evaluation. (8) Alcohol abuse Conclusion/Plan: She reportedly used to drink 4 to 5 glasses of wine every day but decided to quit around April 22, 2024. She denies any drinking since then and denies any delirium tremens symptoms. -Placed on oral thiamine, folate and multivitamin replacement. -She should be out of the window for alcohol withdrawal but will monitor closely. (9) Constipation Conclusion/Plan: She indicates issues with constipation over the past several days. -Place on scheduled docusate and senna with as needed MiraLAX. - Lab Results Lab results reviewed: Yes Fish Bones: 05/01/24 12:27 05/01/24 12:27 - Diagnostic Imaging Results Diagnostic Imaging Results: positive: Final report reviewed Diagnostic Imaging Results Comments: Hand X-ray: Osteopenia. Left hand and wrist joint osteoarthritis. No acute fracture or dislocation. No gross bony erosive changes. Forearm X-ray: No acute radiographic abnormality in the bones. If there is high concern for f urther derangement, consider MRI evaluation.
[2024-05-01 15:00] LABS: PROCALCITONIN 0.41 ng/mL (<0.5)
--- NOTE | 2024-05-01 15:09 | PHARMACY PROGRESS NOTE ---
- Best Possible Medication History Admit Date and Time: 05/01/24 1414 Processed by: Pharmacy Medications reviewed in ED?: No Medication History completed: Yes Patient Interview: Completed Secondary Source(s): Insurance records As the person ultimately responsible for medication therapy, providers are able to order a medication from an existing home medication list in [facility] via the "Reconcile Routine" prior to Confirmation of that medication by systems support specialist. Such practice is discouraged except when the physician, in their clinical judgment, deems that a medical need exists for a medication without regard to previous use.
[2024-05-01] MEDS ORDERED: polyethylene glycoL 3350 17 GM PACKET PO PRN (15:54)
--- NOTE | 2024-05-01 15:57 | XRAY Report ---
PROCEDURE: Chest 1V INDICATIONS: Cough, sepsis, evaluate for pneumonia TECHNIQUE: One view of the chest was acquired. COMPARISON: None. FINDINGS: Surgical changes and devices: None. Lungs and pleura: No pleural effusions or pneumothorax. Peribronchial cuffing and interstitial opaci ties. Mediastinum: Mediastinal contours appear normal. Heart size is normal. Bones and chest wall: No suspicious bony lesions. Overlying soft tissues appear unremarkable. IMPRESSION: Mild pulmonary edema. Reviewed by: Shashi Ortiz MD on 05/01/2024 3:56 PM PDT Approved by: Shashi Ortiz MD on 05/01/2024 3:56 PM PDT Station ID: [id number]
[2024-05-01] MEDS: SODIUM CHLORIDE FLUSH 0.9% 10 ML SYRINGE IVP SCH (16:00)
[2024-05-01] MEDS: cefTRIAXone 2 GM in SODIUM CHLORIDE 0.9% MINIBAG 100 ML IV STA (16:10)
[2024-05-01] MEDS: VANCOMYCIN INJ 1.25 GM in SODIUM CHLORIDE 0.9% 250 ML IV ONE (17:01)
[2024-05-01] MEDS: NS W/20 MEQ KCL 1,000 ML IV SCH (17:37)
[2024-05-01] MEDS: ACETAMINOPHEN 325 MG TABLET PO PRN (18:05)
[2024-05-01 18:06] LABS: INFLUENZA A- RESP PCR PANEL NOT DETECTED; INFLUENZA B - RESP PCR PANEL NOT DETECTED; RSV- RESP PCR PANEL NOT DETECTED; SARS-CoV-2 -RESP PCR PANEL NOT DETECTED
[2024-05-01] MEDS: SENNA 8.6 MG TABLET PO SCH (20:23)
[2024-05-01] MEDS: IBUPROFEN 600 MG TABLET PO PRN (22:21)
[2024-05-01] MEDS: MELATONIN 3 MG TABLET PO PRN (22:21)
[2024-05-02] MEDS: VANCOMYCIN INJ 1 GM in SODIUM CHLORIDE 0.9% 250 ML IV SCH (06:01)
[2024-05-02 06:10] LABS: BASOPHILS % (AUTO) 0.2 %; EOSINOPHILS # (AUTO) 0.1 10^3/uL (0.0-0.7); EOSINOPHILS % (AUTO) 0.5 %; HCT - HEMATOCRIT 29.1 % (37.0-47.0); HGB - HEMOGLOBIN 9.9 g/dL (12.0-16.0); LYMPHOCYTES # (AUTO) 1.1 10^3/uL (1.5-3.5); LYMPHOCYTES % (AUTO) 9.6 %; MEAN CORPUSCULAR HEMOGLOBIN 33.7 pg (27.0-31.0); MEAN PLATELET VOLUME 10.8 fL (7.9-10.8); MONOCYTES # (AUTO) 0.7 10^3/uL (0.0-1.0); MONOCYTES % (AUTO) 6.5 %; NEUTROPHILS # (AUTO) 9.1 10^3/uL (1.5-6.6); NEUTROPHILS % (AUTO) 81.8 %; PLT - PLATELET COUNT 190 10^3/uL (130-450); RED BLOOD COUNT 2.94 10^6/uL (4.20-5.40); RED CELL DISTRIBUTION WIDTH 13.5 % (12.0-15.0); WHITE BLOOD COUNT 11.2 x10^3/uL (4.8-10.8)
[2024-05-02 06:28] LABS: CALCIUM 8.2 mg/dL (8.5-10.3); CREATININE 0.7 mg/dL (0.6-1.3); MAGNESIUM 1.6 mg/dL (1.7-2.3); PHOSPHORUS 2.7 mg/dL (2.5-5.0); POTASSIUM 3.8 mmol/L (3.5-4.5)
[2024-05-02] MEDS ORDERED: SODIUM CHLORIDE 0.9% 50 ML IV ONE (07:43)
[2024-05-02] MEDS: MAGNESIUM SULFATE 1 GM in SODIUM CHLORIDE 0.9% 50 ML IV ONE (07:51)
[2024-05-02] MEDS: ENOXAPARIN 40 MG/0.4 ML SYRINGE SUBQ SCH (08:20)
[2024-05-02] MEDS: DOCUSATE SODIUM 250 MG CAPSULE PO SCH (08:21)
[2024-05-02] MEDS: FOLIC ACID 1 MG TABLET PO SCH (08:22)
[2024-05-02] MEDS: THIAMINE 100 MG TABLET PO SCH (08:22)
[2024-05-02] MEDS: MULTIVITAMIN TABLET PO SCH (08:22)
--- NOTE | 2024-05-02 08:46 | PROVIDER PROGRESS NOTE ---
Subjective - Prog Note Date Prog Note Date: 05/02/24 Prog Note Time: 08:44 - Subjective Pt reports feeling: Improved Subjective: No acute events overnight. She has remained afebrile, though her blood pressures have been on the softer side (90-100 systolic) but she did not require any intervention for this. Overall she does feel improved compared to yesterday with more energy and less generalized weakness. 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 She does have ongoing mid to low back pain but denies any paresthesias, saddle anesthesia, urinary/fecal incontinence. Her blood cultures did become positive for gram-positive cocci with PCR showing group B Streptococcus agalactiae in 3 out of 4 blood cultures. Her WBC has been improving with current antimicrobial therapy. Objective - Vital Signs/Intake & Output Reviewed Vital Signs: Yes Vital Signs: Vital Signs x48h Temp Pulse Resp BP Pulse Ox 05/02/24 08:17 36.6 C 69 20 115/68 86 L 05/02/24 05:00 36.4 C L 63 16 100/60 98 Intake & Output: Intake & Output 04/29/24 04/30/24 05/01/24 05/02/24 23:59 23:59 23:59 23:59 Intake Total 3290 1000 Output Total 2 Balance 3288 1000 - Objective General Appearance: positive: No acute distress, Alert Eyes Bilateral: positive: Normal inspection, PERRL, EOMI ENT: positive: ENT inspection nml, Pharynx nml, No signs of dehydration Neck: positive: Nml inspection, Thyroid nml, No JVD, Trachea midline Respiratory: positive: No respiratory distress, Breath sounds nml. negative: Wheezes, Rales, Rhonchi Cardiovascular: positive: Regular rate & rhythm, No gallop, Systolic murmur (Loud and harsh 3/6 systolic murmur at left lower sternal border that is heard throughout the precordium with radiation to her posterior left chest) Peripheral Pulses: 2+ Dorsalis pedis (R), 2+ Dorsalis pedis (L) Abdomen: positive: Non-tender, No organomegaly, Nml bowel sounds, No distention Back: positive: Nml inspection, Other (No point tenderness, step-off, deformity, etc.). negative: CVA tenderness (R), CVA tenderness (L) Skin: positive: Color nml, No rash, Warm, Dry Extremities: positive: Other (Left dorsum of hand erythematous. Slightyl boggy on lateral aspect of wrist/hand with slight induration but no fluctuance noted. Erythema extends from hand to mid-forearm on left. No obvious wound. No purulent drainage. No joint effusion.) Neurologic/Psychiatric: positive: Oriented x3, CN's nml (2-12), Sensation nml, Other (Strength 5/5 in both upper extremities. Strength 4/5 in both lower extremities.) Reflexes: Ankle (R): 2+, Ankle (L): 2+ Babinski Reflex: Right: Down, Left: Down - Lab Results Fish Bones: 05/02/24 05:15 05/02/24 05:15 Other Labs: Lab Results x24hrs 05/02/24 05/02/24 05/01/24 Range/Units 05:15 05:15 16:50 WBC 11.2 H (4.8-10.8) x10^3/uL RBC 2.94 L (4.20-5.40) 10^6/uL Hgb 9.9 L (12.0-16.0) g/dL Hct 29.1 L (37.0-47.0) % MCV 99.0 (81.0-99.0) fL MCH 33.7 H (27.0-31.0) pg MCHC 34.0 (32.0-36.0) g/dL RDW 13.5 (12.0-15.0) % Plt Count 190 (130-450) 10^3/uL MPV 10.8 (7.9-10.8) fL Neut # (Auto) 9.1 H (1.5-6.6) 10^3/uL Lymph # (Auto) 1.1 L (1.5-3.5) 10^3/uL Charles # (Auto) 0.7 (0.0-1.0) 10^3/uL Eos # (Auto) 0.1 (0.0-0.7) 10^3/uL Baso # (Auto) 0.0 (0.0-0.1) 10^3/uL Absolute Nucleated RBC 0.00 x10^3/uL Nucleated RBC % 0.0 /100WBC ESR (0-30) mm/Hr Sodium 130 L (135-145) mmol/L Potassium 3.8 (3.5-4.5) mmol/L Chloride 105 (101-111) mmol/L Carbon Dioxide 19 L (21-32) mmol/L Anion Gap 6.0 (6-13) BUN 10 (6-20) mg/dL Creatinine 0.7 (0.6-1.3) mg/dL Estimated GFR (MDRD) 82 L (>89) Glucose 102 (74-104) mg/dL Lactic Acid (0.5-2.2) mmol/L Calcium 8.2 L (8.5-10.3) mg/dL Phosphorus 2.7 (2.5-5.0) mg/dL Magnesium 1.6 L (1.7-2.3) mg/dL Total Bilirubin (0.2-1.0) mg/dL AST (10-42) IU/L ALT (10-60) IU/L Alkaline Phosphatase (42-121) IU/L C-Reactive Protein (<0.5) mg/dL Total Protein (6.4-8.9) g/dL Albumin (3.2-5.5) g/dL Globulin (2.1-4.2) g/dL Albumin/Globulin Ratio (1.0-2.2) Lipase (11-82) U/L Procalcitonin Immunoas (<0.5) ng/mL Urine Color Urine Clarity (CLEAR) Urine pH (5.0-7.5) PH Ur Specific Belen (1.002-1.030) Urine Protein (NEGATIVE) mg/dL Urine Glucose (UA) (NEGATIVE) mg/dL Urine Ketones (NEGATIVE) mg/dL Urine Occult Blood (NEGATIVE) Urine Nitrite (NEGATIVE) Urine Bilirubin (NEGATIVE) Urine Urobilinogen (NORMAL) E.U./dL Ur Leukocyte Esterase (NEGATIVE) Urine RBC (0-5) /HPF Urine WBC (0-5) /HPF Urine WBC Clumps Ur Squamous Epith Cells (<= Few) Amorphous Sediment /LPF Urine Bacteria (None Seen) /HPF Urine Casts /LPF Urine Mucus Ur Microscopic Review Urine Culture Comments Nasal Influenza B PCR NOT DETECTED Nasal Influenza A PCR NOT DETECTED Nasal RSV (PCR) NOT DETECTED Nasal SARS-CoV-2 (PCR) NOT DETECTED 05/01/24 05/01/24 05/01/24 Range/Units 12:27 12:27 12:27 WBC (4.8-10.8) x10^3/uL RBC (4.20-5.40) 10^6/uL Hgb (12.0-16.0) g/dL Hct (37.0-47.0) % MCV (81.0-99.0) fL MCH (27.0-31.0) pg MCHC (32.0-36.0) g/dL RDW (12.0-15.0) % Plt Count (130-450) 10^3/uL MPV (7.9-10.8) fL Neut # (Auto) (1.5-6.6) 10^3/uL Lymph # (Auto) (1.5-3.5) 10^3/uL Charles # (Auto) (0.0-1.0) 10^3/uL Eos # (Auto) (0.0-0.7) 10^3/uL Baso # (Auto) (0.0-0.1) 10^3/uL Absolute Nucleated RBC x10^3/uL Nucleated RBC % /100WBC ESR 30 (0-30) mm/Hr Sodium (135-145) mmol/L Potassium (3.5-4.5) mmol/L Chloride (101-111) mmol/L Carbon Dioxide (21-32) mmol/L Anion Gap (6-13) BUN (6-20) mg/dL Creatinine (0.6-1.3) mg/dL Estimated GFR (MDRD) (>89) Glucose (74-104) mg/dL Lactic Acid 1.0 (0.5-2.2) mmol/L Calcium (8.5-10.3) mg/dL Phosphorus 2.8 (2.5-5.0) mg/dL Magnesium (1.7-2.3) mg/dL Total Bilirubin (0.2-1.0) mg/dL AST (10-42) IU/L ALT (10-60) IU/L Alkaline Phosphatase (42-121) IU/L C-Reactive Protein 30.4 H (<0.5) mg/dL Total Protein (6.4-8.9) g/dL Albumin (3.2-5.5) g/dL Globulin (2.1-4.2) g/dL Albumin/Globulin Ratio (1.0-2.2) Lipase (11-82) U/L Procalcitonin Immunoas 0.41 (<0.5) ng/mL Urine Color Urine Clarity (CLEAR) Urine pH (5.0-7.5) PH Ur Specific Belen (1.002-1.030) Urine Protein (NEGATIVE) mg/dL Urine Glucose (UA) (NEGATIVE) mg/dL Urine Ketones (NEGATIVE) mg/dL Urine Occult Blood (NEGATIVE) Urine Nitrite (NEGATIVE) Urine Bilirubin (NEGATIVE) Urine Urobilinogen (NORMAL) E.U./dL Ur Leukocyte Esterase (NEGATIVE) Urine RBC (0-5) /HPF Urine WBC (0-5) /HPF Urine WBC Clumps Ur Squamous Epith Cells (<= Few) Amorphous Sediment /LPF Urine Bacteria (None Seen) /HPF Urine Casts /LPF Urine Mucus Ur Microscopic Review Urine Culture Comments Nasal Influenza B PCR Nasal Influenza A PCR Nasal RSV (PCR) Nasal SARS-CoV-2 (PCR) 05/01/24 05/01/24 05/01/24 Range/Units 12:27 12:27 12:25 WBC 16.6 H (4.8-10.8) x10^3/uL RBC 3.50 L (4.20-5.40) 10^6/uL Hgb 12.0 (12.0-16.0) g/dL Hct 34.0 L (37.0-47.0) % MCV 97.1 (81.0-99.0) fL MCH 34.3 H (27.0-31.0) pg MCHC 35.3 (32.0-36.0) g/dL RDW 13.3 (12.0-15.0) % Plt Count 219 (130-450) 10^3/uL MPV 10.3 (7.9-10.8) fL Neut # (Auto) 15.4 H (1.5-6.6) 10^3/uL Lymph # (Auto) 0.4 L (1.5-3.5) 10^3/uL Charles # (Auto) 0.5 (0.0-1.0) 10^3/uL Eos # (Auto) 0.0 (0.0-0.7) 10^3/uL Baso # (Auto) 0.0 (0.0-0.1) 10^3/uL Absolute Nucleated RBC 0.00 x10^3/uL Nucleated RBC % 0.0 /100WBC ESR (0-30) mm/Hr Sodium 128 L (135-145) mmol/L Potassium 3.2 L (3.5-4.5) mmol/L Chloride 95 L (101-111) mmol/L Carbon Dioxide 23 (21-32) mmol/L Anion Gap 10.0 (6-13) BUN 8 (6-20) mg/dL Creatinine 0.5 L (0.6-1.3) mg/dL Estimated GFR (MDRD) 121 (>89) Glucose 109 H (74-104) mg/dL Lactic Acid (0.5-2.2) mmol/L Calcium 9.2 (8.5-10.3) mg/dL Phosphorus (2.5-5.0) mg/dL Magnesium 1.5 L (1.7-2.3) mg/dL Total Bilirubin 1.0 (0.2-1.0) mg/dL AST 35 (10-42) IU/L ALT 36 (10-60) IU/L Alkaline Phosphatase 266 H (42-121) IU/L C-Reactive Protein (<0.5) mg/dL Total Protein 6.1 L (6.4-8.9) g/dL Albumin 3.6 (3.2-5.5) g/dL Globulin 2.5 (2.1-4.2) g/dL Albumin/Globulin Ratio 1.4 (1.0-2.2) Lipase 11 (11-82) U/L Procalcitonin Immunoas (<0.5) ng/mL Urine Color DARK YELLOW Urine Clarity CLEAR (CLEAR) Urine pH 6.0 (5.0-7.5) PH Ur Specific Belen 1.015 (1.002-1.030) Urine Protein 30 H (NEGATIVE) mg/dL Urine Glucose (UA) NEGATIVE (NEGATIVE) mg/dL Urine Ketones 40 H (NEGATIVE) mg/dL Urine Occult Blood MODERATE H (NEGATIVE) Urine Nitrite NEGATIVE (NEGATIVE) Urine Bilirubin SMALL H (NEGATIVE) Urine Urobilinogen 4 H (NORMAL) E.U./dL Ur Leukocyte Esterase NEGATIVE (NEGATIVE) Urine RBC 6-10 H (0-5) /HPF Urine WBC 6-10 H (0-5) /HPF Urine WBC Clumps PRESENT Ur Squamous Epith Cells FEW Squamous (<= Few) Amorphous Sediment Marked /LPF Urine Bacteria Moderate H (None Seen) /HPF Urine Casts 3-5 Hyaline Casts /LPF Urine Mucus Marked Strands Ur Microscopic Review INDICATED Urine Culture Comments NOT INDICATED Nasal Influenza B PCR Nasal Influenza A PCR Nasal RSV (PCR) Nasal SARS-CoV-2 (PCR) - Diagnostic Imaging Diagnostic Imaging Results: positive: Final report reviewed Diagnostic Imaging Comments: Hand X-ray: Osteopenia. Left hand and wrist joint osteoarthritis. No acute fracture or dislocation. No gross bony erosive changes. Forearm X-ray: No acute radiographic abnormality in the bones. If there is high concern for further derangement, consider MRI evaluation. Chest X-ray: No pleural effusions or pneumothorax. Peribronchial cuffing and interstitial opacities. Possible mild pulmonary edema. - Other Results/Comments Other Results/Comments: ECG: per my read - NSR, HR 71, leftward axis deviation, 1st degree AVB (NH 223ms), RBBB, LVH, non-specific ST-TW changes but no ischemic ST elevations or depressions Sepsis Event Note (H) - Evaluation Current Stage of Sepsis: Sepsis Possible source of Sepsis: positive: Skin/soft tissue Assessment/Plan - Problem List (1) Left arm cellulitis Impression: She first noted redness, swelling and pain on Monday04/28/24. She denies any puncture wound or traumatic event that may have started this. Since then it has spread and worsened, associated with subjective fevers, chills and night sweats. Cellulitis appeared streptococcal in nature on exam at time of presentation. -XR of the hand/wrist/forearm show no subcutaneous emphysema, foreign body or other pathology. -Continue IV Vancomycin and Ceftriaxone. Blood cultures with 3/4 bottles showing GPC, with PCR indicating Group B Streptococcus. Can narrow antibiotics pending susceptibilities. -ESR 30, CRP 30.4, Procalcitonin 0.41. -Consider CT with IV contrast if worsening or develops signs of abscess formation. -Cellulitis appears slightly improved since admission (less red, no extension). (2) Bacteremia due to group B Streptococcus Impression: She has group B streptococcus growing in 3/4 bottles of her admission blood cultures from 05/01/2024. Likely source is her left upper extremity cellulitis. -Given her harsh systolic murmur, we are currently awaiting echocardiogram for further evaluation. -Will repeat blood cultures tomorrow. -If persistently bacteremic, will likely need transferred for transesophageal echocardiogram if her TTE is unremarkable. If her surface TTE is abnormal, we will discuss transfer at that time. -ECG obtained today showed normal sinus rhythm with a first-degree AV block, with NH interval of 223 ms, along with evidence of LVH and right bundle branch block. We have no prior ECGs to compare, thus it is unclear if this is chronic changes versus subacute. (3) Sepsis Impression: Her sepsis is secondary to her left upper extremity cellulitis along with Group B Streptococcal bacteremia. She meets criteria for sepsis due to tachycardia, leukocytosis and fever in the setting of left upper extremity cellulitis. -Lactic acid is 1.0 and she has no evidence of end-organ dysfunction. Sepsis is improving. -Received 30 cc/kg bolus of IV fluids. Continue maintenance IV fluids today, stop tomorrow. Sepsis is improving. -CXR negative. COVID/Flu/RSV negative. -Continue IV antibiotics as noted above. Blood cultures are positive 3/4 bottles for Group B Strep. -Given heart murmur, awaiting TTE as noted below. Repeat blood cultures tomorrow morning. If she is persistently bacteremic, will need transferred for SESAR to rule out endocarditis unless TTE shows evidence of such. -Given her low back pain, will obtain MRI w/wo contrast to evaluate for os teomyelitis/discitis vs epidural abscess. Qualifiers: Sepsis acute organ dysfunction status: without acute organ dysfunction (4) Systolic murmur Impression: She denies having a history of a murmur in the past, but exam at the time of admission showed a loud/harsh 3/6 systolic murmur throughout her precordium with some radiation to her back. -TTE obtained yesterday, awaiting results. -May ultimately need transferred to evaluate for endocarditis depending on blood cultures, surface echocardiogram results, etc. -ECG shows signs of LVH and 1st degree heart block. No previous ECGs to compare so unclear if that is acute/related to her current issues. 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 After she stopped drinking she has had low solute intake but has been trying to drink water to stay hydrated. 5 days ago when she presented to the emergency department her sodium was 124 which was likely secondary to poor solute intake, increased free water intake in the setting of chronic hyponatremia. Her sodium was still low at presentation (though improved from several days ago), due to the same reasons noted above. -Currently receiving isotonic IV fluids as noted above for her sepsis. Sodium level is improving. -Her baseline sodium appears to be 128-130. -Repeat daily BMP to monitor sodium level. (6) Hypokalemia Impression: She received oral supplements in the ED for a potassium of 3.2. Resolved with treatment. -Will continue IV fluids containing potassium. -Check daily chem panel and magnesium. (7) Generalized weakness Impression: Her generalized weakness is likely multifactorial secondary to hyponatremia, hypomagnesemia, hypokalemia in the setting of alcohol abuse and active sepsis/bacteremia. -Correcting electrolyte disturbances as noted elsewhere. -Treat sepsis as noted above. -PT/OT evaluation. -Obtaining lumbar MRI to evaluate for infectious issues of her spine. (8) Hypomagnesemia Impression: She received replacement therapy for a magnesium level of 1.5 while in the ED. -Resolved. (9) Alcohol abuse Impression: She reportedly used to drink 4 to 5 glasses of wine every day but decided to quit around April 22, 2024. She denies any drinking since then and denies any delirium tremens symptoms. -Continue oral thiamine, folate and multivitamin replacement. -She should be out of the window for alcohol withdrawal but will monitor closely. (10) Constipation Impression: She indicates issues with constipation over the past several days preceding her hospitalization. -Continue scheduled docusate and senna with as needed MiraLAX. -Resolved.
[2024-05-02] MEDS: cefTRIAXone 2 GM in SODIUM CHLORIDE 0.9% MINIBAG 100 ML IV SCH (09:27)
[2024-05-02] MEDS ORDERED: GADOTERATE MEGLUMINE 7.5 MMOL/15 ML VIAL ONE (11:19)
[2024-05-02] MEDS: GADOTERATE MEGLUMINE 7.5 MMOL/15 ML VIAL IVP ONE (12:17)
--- NOTE | 2024-05-02 13:38 | MRI Report ---
PROCEDURE: Lumbar Spine W/WO INDICATIONS: Eval for epidural abscess, discitis/osteomyelitis CONTRAST: clariscan 12.8 ml TECHNIQUE: Noncontrast sagittal T1 spin echo and T2 fast spin echo, sagittal STIR, axial T1 and T2 fast spin ech o through the lumbar spine. In cases with scoliosis, additional coronal T2 fast spin echo may be per formed. After the administration of contrast, sagittal and axial T1 spin echo with fat saturation th rough the lumbar spine. COMPARISON: None. FINDINGS: Image quality: Diagnostic, with note made of motion artifact. Alignment and curvature: There is minimal levoconvex lumbar sclerotic curvature. No significant AP alignment abnormality can be seen. Marrow: Marrow is of normal overall signal. Scattered foci of T1-weighted hyperintensity and T2-we ighted hyperintensity are seen, without increased STIR signal. These foci are attributed to benign ve rtebral body hemangiomas. No acute vertebral body compression fractures. No suspicious marrow enha ncement. Spinal cord: Conus medullaris terminates at the L1 level. Visualized spinal cord demonstrates rai l signal, without suspicious enhancement. Paraspinous soft tissues: No paravertebral masses or abnormal enhancement. T12-L1: Normal in appearance. L1-L2: Normal in appearance. L2-L3: Normal in appearance. L3-L4: Normal in appearance. L4-L5: The disc height is relatively well preserved. Mild disc bulge is seen. Moderate facet hyper trophy is seen. Minimal to mild bilateral neuroforaminal narrowing can be seen. Moderate central c anal narrowing is seen. L5-S1: Moderate loss of disc height and signal are seen. Reactive marrow endplate changes are seen , which are hyperintense on T1-weighted and T2-weighted imaging, without significant increased STIR s ignal. These imaging findings are most consistent with fatty metaplasia (Modic type 2 change). Mild t o moderate disc bulge is seen. Mild facet hypertrophy is seen. No significant neural foraminal or ce ntral canal narrowing can be seen. IMPRESSION: Focal lower lumbar spine degenerative changes are seen. Reviewed by: Mathew James MD on 05/02/2024 12:36 PM CAT Approved by: Matehw James MD on 05/02/2024 12:36 PM [id number] Station ID: [id number]
[2024-05-03 05:59] LABS: BASOPHILS % (AUTO) 0.3 %; EOSINOPHILS # (AUTO) 0.1 10^3/uL (0.0-0.7); EOSINOPHILS % (AUTO) 0.4 %; HGB - HEMOGLOBIN 9.3 g/dL (12.0-16.0); LYMPHOCYTES % (AUTO) 7.9 %; MEAN CORPUSCULAR HEMOGLOBIN 33.1 pg (27.0-31.0); MEAN CORPUSCULAR HGB CONC 33.2 g/dL (32.0-36.0); MEAN CORPUSCULAR VOLUME 99.6 fL (81.0-99.0); MEAN PLATELET VOLUME 10.4 fL (7.9-10.8); MONOCYTES # (AUTO) 0.8 10^3/uL (0.0-1.0); MONOCYTES % (AUTO) 6.1 %; NEUTROPHILS # (AUTO) 10.7 10^3/uL (1.5-6.6); NEUTROPHILS % (AUTO) 84.3 %; PLT - PLATELET COUNT 246 10^3/uL (130-450); RED BLOOD COUNT 2.81 10^6/uL (4.20-5.40); RED CELL DISTRIBUTION WIDTH 14.1 % (12.0-15.0); WHITE BLOOD COUNT 12.6 x10^3/uL (4.8-10.8)
[2024-05-03 06:23] LABS: CALCIUM 8.2 mg/dL (8.5-10.3); CREATININE 0.7 mg/dL (0.6-1.3); CRP - C-REACTIVE PROTEIN 15.5 mg/dL (<0.5); MAGNESIUM 1.6 mg/dL (1.7-2.3); POTASSIUM 3.9 mmol/L (3.5-4.5)
[2024-05-03] MEDS: MAGNESIUM OXIDE 400 MG TABLET PO SCH (11:17)
--- NOTE | 2024-05-03 12:34 | PROVIDER PROGRESS NOTE ---
Subjective - Prog Note Date Prog Note Date: 05/03/24 Prog Note Time: 12:32 - Subjective Pt reports feeling: Improved Subjective: No acute events overnight. She feels overall improved though not at her baseline yet. She is fatigued but denies any significant low back pain anymore and has been able to ambulate some in the room though most of the day she stays in bed. Denies any fevers, chills, cough, night sweats. Her left wrist is can filling and closing machine tender however the redness/cellulitis is improving. Her lumbar MRI w/wo contrast was negative for infectious issue. Her TTE showed moderate-severe mitral regurgitation but no obvious vegetation. Objective - Vital Signs/Intake & Output Reviewed Vital Signs: Yes Vital Signs: Vital Signs x48h Temp Pulse Resp BP Pulse Ox 05/03/24 08:00 36.6 C 62 20 109/56 L 96 Intake & Output: Intake & Output 04/30/24 05/01/24 05/02/24 05/03/24 23:59 23:59 23:59 23:59 Intake Total 3290 4042 1440 Output Total 2 Balance 3288 4042 1440 - Objective General Appearance: positive: No acute distress, Alert, Mild distress Eyes Bilateral: positive: Normal inspection, PERRL, EOMI ENT: positive: ENT inspection nml, Pharynx nml, No signs of dehydration Neck: positive: Nml inspection, Thyroid nml, No JVD, Trachea midline Respiratory: positive: No respiratory distress, Breath sounds nml. negative: Wheezes, Rales, Rhonchi Cardiovascular: positive: Regular rate & rhythm, No gallop, Systolic murmur Peripheral Pulses: 2+ Dorsalis pedis (R), 2+ Dorsalis pedis (L) Abdomen: positive: Non-tender, No organomegaly, Nml bowel sounds, No distention Back: positive: Nml inspection. negative: CVA tenderness (R), CVA tenderness (L) Skin: positive: Color nml, No rash, Warm, Dry Extremities: positive: No pedal edema, Other (Left wrist/hand/forearm cellulitis is improving. No induration, fluctuance or drainage.) Neurologic/Psychiatric: positive: Oriented x3, CN's nml (2-12), Motor nml, Sensation nml - Lab Results Fish Bones: 05/03/24 05:23 05/03/24 05:23 Other Labs: Lab Results x24hrs 05/03/24 05/03/24 05/03/24 Range/Units 05:23 05:23 05:23 WBC (4.8-10.8) x10^3/uL RBC (4.20-5.40) 10^6/uL Hgb (12.0-16.0) g/dL Hct (37.0-47.0) % MCV (81.0-99.0) fL MCH (27.0-31.0) pg MCHC (32.0-36.0) g/dL RDW (12.0-15.0) % Plt Count (130-450) 10^3/uL MPV (7.9-10.8) fL Neut # (Auto) (1.5-6.6) 10^3/uL Lymph # (Auto) (1.5-3.5) 10^3/uL [place] # (Auto) (0.0-1.0) 10^3/uL Eos # (Auto) (0.0-0.7) 10^3/uL Baso # (Auto) (0.0-0.1) 10^3/uL Absolute Nucleated RBC x10^3/uL Nucleated RBC % /100WBC ESR 30 (0-30) mm/Hr Sodium 135 (135-145) mmol/L Potassium 3.9 (3.5-4.5) mmol/L Chloride 109 (101-111) mmol/L Carbon Dioxide 19 L (21-32) mmol/L Anion Gap 7.0 (6-13) BUN 7 (6-20) mg/dL Creatinine 0.7 (0.6-1.3) mg/dL Estimated GFR (MDRD) 82 L (>89) Glucose 95 (74-104) mg/dL Calcium 8.2 L (8.5-10.3) mg/dL Magnesium 1.6 L (1.7-2.3) mg/dL C-Reactive Protein 15.5 H (<0.5) mg/dL Procalcitonin Immunoas 0.41 (<0.5) ng/mL 05/03/24 Range/Units 05:23 WBC 12.6 H (4.8-10.8) x10^3/uL RBC 2.81 L (4.20-5.40) 10^6/uL Hgb 9.3 L (12.0-16.0) g/dL Hct 28.0 L (37.0-47.0) % MCV 99.6 H (81.0-99.0) fL MCH 33.1 H (27.0-31.0) pg MCHC 33.2 (32.0-36.0) g/dL RDW 14.1 (12.0-15.0) % Plt Count 246 (130-450) 10^3/uL MPV 10.4 (7.9-10.8) fL Neut # (Auto) 10.7 H (1.5-6.6) 10^3/uL Lymph # (Auto) 1.0 L (1.5-3.5) 10^3/uL [place] # (Auto) 0.8 (0.0-1.0) 10^3/uL Eos # (Auto) 0.1 (0.0-0.7) 10^3/uL Baso # (Auto) 0.0 (0.0-0.1) 10^3/uL Absolute Nucleated RBC 0.00 x10^3/uL Nucleated RBC % 0.0 /100WBC ESR (0-30) mm/Hr Sodium (135-145) mmol/L Potassium (3.5-4.5) mmol/L Chloride (101-111) mmol/L Carbon Dioxide (21-32) mmol/L Anion Gap (6-13) BUN (6-20) mg/dL Creatinine (0.6-1.3) mg/dL Estimated GFR (MDRD) (>89) Glucose (74-104) mg/dL Calcium (8.5-10.3) mg/dL Magnesium (1.7-2.3) mg/dL C-Reactive Protein (<0.5) mg/dL Procalcitonin Immunoas (<0.5) ng/mL - Diagnostic Imaging Diagnostic Imaging Comments: Lumbar Spine MRI: Focal lower lumbar spine degenerative changes are seen. TTE: .1. Normal LV size and systolic function, LVEF greater than 70%. 2. Normal RV size and systolic function. 3. Moderate to severe mitral regurgitation. Thickening of mitral valve leaflets. No vegetation noted. Sepsis Event Note (H) - Evaluation Current Stage of Sepsis: Resolved Possible source of Sepsis: positive: Skin/soft tissue Assessment/Plan - Problem List (1) Left arm cellulitis Impression: She first noted redness, swelling and pain on Monday04/28/24. She denies any puncture wound or traumatic event that may have started this. Since then it has spread and worsened, associated with subjective fevers, chills and night sweats. Cellulitis appeared streptococcal in nature on exam at time of presentation; no evidence for abscess or necrotizing infection. -XR of the hand/wrist/forearm show no subcutaneous emphysema, foreign body or other pathology. -Blood cultures with 4/4 bottles showing GPC, with PCR indicating Group B Streptococcus. Discontinue IV Vancomycin, but continue IV Ceftriaxone. Treat bacteremia as noted below. -ESR 30, CRP 30.4, Procalcitonin 0.41. -Cellulitis appears improved since admission (less red, no extension, no abscess formation). (2) Bacteremia due to group B Streptococcus Impression: She has group B streptococcus growing in 4/4 bottles of her admission blood cul tures from 05/01/2024. Likely source is her left upper extremity cellulitis. -Will repeat blood cultures today. -If persistently bacteremic, will likely need transferred for transesophageal echocardiogram for presumptive endocarditis. -ECG obtained today showed normal sinus rhythm with a first-degree AV block, with TX interval of 223 ms, along with evidence of LVH and right bundle branch block. We have no prior ECGs to compare, thus it is unclear if this is chronic changes versus subacute. -Continue IV Ceftriaxone 2 gm q24hr. -If repeat blood cultures stay negative, then can likely plan for PICC line placement and IV Ceftriaxone at home for total 14 day course of antibiotics. (3) Sepsis Impression: Her sepsis is secondary to her left upper extremity cellulitis along with Group B Streptococcal bacteremia. She met criteria for sepsis due to tachycardia, leukocytosis and fever in the setting of left upper extremity cellulitis at the time of admission. -Sepsis has resolved at this time. -CXR negative. COVID/Flu/RSV negative. -Continue IV antibiotics as noted above. Blood cultures are positive 4/4 bottles for Group B Strep. Repeating blood cultures today. -TTE negative for endocarditis (but has mod-severe MR). Lumbar MRI negative for infectious process. Qualifiers: Sepsis acute organ dysfunction status: without acute organ dysfunction (4) Moderate to severe mitral regurgitation Impression: She denies having a history of a murmur in the past, but exam at the time of admission showed a loud/harsh 3/6 systolic murmur throughout her precordium with some radiation to her back. -TTE showed moderate to severe mitral regurgitation with thickening of mitral valve leaflets but no vegetation noted. -LVEF > 70% with normal LV size. She does have severe left atrial enlargement. -As long as she clears her bacteremia, she can be referred to Cardiology as an outpatient to follow this and determine next steps. 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 After she stopped drinking she has had low solute intake but has been trying to drink water to stay hydrated. 5 days ago when she presented to the emergency department her sodium was 124 which was likely secondary to poor solute intake, increased free water intake in the setting of chronic hypon atremia. Her sodium was still low at presentation (though improved from several days ago), due to the same reasons noted above. -Currently receiving isotonic IV fluids as noted above for her sepsis. Sodium level is normal today. Will discontinue IV fluids. -Her baseline sodium appears to be 128-130. -Daily BMP to monitor sodium level. (6) Hypokalemia Impression: She received oral supplements in the ED for a potassium of 3.2. Resolved with treatment. (7) Generalized weakness Impression: Her generalized weakness is likely multifactorial secondary to hyponatremia, hypomagnesemia, hypokalemia in the setting of alcohol abuse and active sepsis/bacteremia. -Correcting electrolyte disturbances as noted elsewhere. -Treat sepsis as noted above. -PT/OT evaluation. -Lumbar MRI normal, no neurologic/infectious issues causing her weakness.. (8) Hypomagnesemia Impression: Resolved (9) Alcohol abuse Impression: She reportedly used to drink 4 to 5 glasses of wine every day but decided to quit around April 22, 2024. She denies any drinking since then and denies any delirium tremens symptoms. -Continue oral thiamine, folate and multivitamin replacement.
[2024-05-04 05:14] LABS: BASOPHILS % (AUTO) 0.3 %; EOSINOPHILS % (AUTO) 0.2 %; HCT - HEMATOCRIT 28.9 % (37.0-47.0); HGB - HEMOGLOBIN 9.7 g/dL (12.0-16.0); LYMPHOCYTES # (AUTO) 1.1 10^3/uL (1.5-3.5); LYMPHOCYTES % (AUTO) 9.9 %; MEAN CORPUSCULAR HEMOGLOBIN 33.9 pg (27.0-31.0); MEAN CORPUSCULAR HGB CONC 33.6 g/dL (32.0-36.0); MEAN PLATELET VOLUME 10.1 fL (7.9-10.8); MONOCYTES # (AUTO) 0.7 10^3/uL (0.0-1.0); MONOCYTES % (AUTO) 6.1 %; NEUTROPHILS # (AUTO) 9.5 10^3/uL (1.5-6.6); NEUTROPHILS % (AUTO) 82.5 %; PLT - PLATELET COUNT 326 10^3/uL (130-450); RED BLOOD COUNT 2.86 10^6/uL (4.20-5.40); RED CELL DISTRIBUTION WIDTH 14.3 % (12.0-15.0); WHITE BLOOD COUNT 11.5 x10^3/uL (4.8-10.8)
[2024-05-04 05:29] LABS: CALCIUM 8.4 mg/dL (8.5-10.3); CREATININE 0.8 mg/dL (0.6-1.3); MAGNESIUM 1.5 mg/dL (1.7-2.3); POTASSIUM 3.7 mmol/L (3.5-4.5)
[2024-05-04] MEDS: MAGNESIUM SULFATE 2 GRAM 2 GM/50 ML BAG IV ONE (10:19)
--- NOTE | 2024-05-04 14:40 | PROVIDER PROGRESS NOTE ---
Subjective - Prog Note Date Prog Note Date: 05/04/24 Prog Note Time: 14:38 - Subjective Pt reports feeling: No change Subjective: No acute events overnight. She has no specific complaints today aside from back pain and stiffness that she attributes to the hospital bed. She denies having any paresthesias, lower extremity weakness, saddle anesthesia. She remains afebrile. Denies any chest pain, cough, nausea, vomiting. Objective - Vital Signs/Intake & Output Reviewed Vital Signs: Yes Vital Signs: Vital Signs x48h Temp Pulse Resp BP Pulse Ox 05/04/24 08:20 36.5 C 61 16 106/63 96 Intake & Output: Intake & Output 05/01/24 05/02/24 05/03/24 05/04/24 23:59 23:59 23:59 23:59 Intake Total 3290 4042 3380 1610 Output Total 2 Balance 3288 4042 3380 1610 - Objective General Appearance: positive: No acute distress, Alert Eyes Bilateral: positive: Normal inspection, PERRL, EOMI ENT: positive: ENT inspection nml, Pharynx nml, No signs of dehydration Neck: positive: Nml inspection, Thyroid nml, No JVD, Trachea midline Respiratory: positive: Chest non-tender, No respiratory distress, Breath sounds nml. negative: Wheezes, Rales, Rhonchi Cardiovascular: positive: Regular rate & rhythm, No gallop, Systolic murmur (Loud/harsh 3/6 systolic murmur at left lower sternal border and apex with radiation to posterior chest) Peripheral Pulses: 2+ Dorsalis pedis (R), 2+ Dorsalis pedis (L) Abdomen: positive: Non-tender, No organomegaly, Nml bowel sounds, No distention Back: positive: Nml inspection Skin: positive: Color nml, No rash, Warm, Dry Extremities: positive: Other (Her left forearm cellulitis continues to improve and there is no induration, fluctuance or drainage) Neurologic/Psychiatric: positive: Oriented x3, CN's nml (2-12), Motor nml, Sensation nml - Lab Results Fish Bones: 05/04/24 04:39 05/04/24 04:39 Other Labs: Lab Results x24hrs 05/04/24 05/04/24 Range/Units 04:39 04:39 WBC 11.5 H (4.8-10.8) x10^3/uL RBC 2.86 L (4.20-5.40) 10^6/uL Hgb 9.7 L (12.0-16.0) g/dL Hct 28.9 L (37.0-47.0) % MCV 101.0 H (81.0-99.0) fL MCH 33.9 H (27.0-31.0) pg MCHC 33.6 (32.0-36.0) g/dL RDW 14.3 (12.0-15.0) % Plt Count 326 (130-450) 10^3/uL MPV 10.1 (7.9-10.8) fL Neut # (Auto) 9.5 H (1.5-6.6) 10^3/uL Lymph # (Auto) 1.1 L (1.5-3.5) 10^3/uL [place] # (Auto) 0.7 (0.0-1.0) 10^3/uL Eos # (Auto) 0.0 (0.0-0.7) 10^3/uL Baso # (Auto) 0.0 (0.0-0.1) 10^3/uL Absolute Nucleated RBC 0.00 x10^3/uL Nucleated RBC % 0.0 /100WBC Sodium 135 (135-145) mmol/L Potassium 3.7 (3.5-4.5) mmol/L Chloride 106 (101-111) mmol/L Carbon Dioxide 22 (21-32) mmol/L Anion Gap 7.0 (6-13) BUN 7 (6-20) mg/dL Creatinine 0.8 (0.6-1.3) mg/dL Estimated GFR (MDRD) 70 L (>89) Glucose 98 (74-104) mg/dL Calcium 8.4 L (8.5-10.3) mg/dL Magnesium 1.5 L (1.7-2.3) mg/dL Sepsis Event Note (H) - Evaluation Current Stage of Sepsis: Resolved Possible source of Sepsis: positive: Skin/soft tissue Assessment/Plan - Problem List (1) Left arm cellulitis Impression: She first noted redness, swelling and pain on Monday04/28/24. She denies any puncture wound or traumatic event that may have started this. Since then it has spread and worsened, associated with subjective fevers, chills and night sweats. Cellulitis appeared streptococcal in nature on exam at time of presentation; no evidence for abscess or necrotizing infection. -XR of the hand/wrist/forearm show no subcutaneous emphysema, foreign body or other pathology. -Blood cultures 05/01/24 with 4/4 bottles growing Group B Streptococcus. Vancomycin discontinued previously. Continue IV Ceftriaxone 2 gm q24h. -Cellulitis continues to improve compared to admission (less red, no extension, no abscess formation). (2) Bacteremia due to group B Streptococcus Impression: She has group B streptococcus growing in 4/4 bottles of her admission blood cultures from 05/01/2024. Likely source is her left upper extremity cellulitis. -Repeat blood cultures from 05/03/24 are NGTD thus far. -If persistently bacteremic, will likely need transferred for transesophageal echocardiogram for presumptive endocarditis. -Continue IV Ceftriaxone 2 gm q24hr. -If repeat blood cultures stay negative, then can likely plan for PICC line placement and IV Ceftriaxone at home for total 14 day course of antibiotics from her first negative blood culture. (3) Sepsis Impression: Her sepsis is secondary to her left upper extremity cellulitis along with Group B Streptococcal bacteremia. She met criteria for sepsis due to tachycardia, leukocytosis and fever in the setting of left upper extremity cellulitis at the time of admission. -Sepsis has resolved at this time. -CXR negative. COVID/Flu/RSV negative. -Continue IV antibiotics as noted above. Blood cultures are positive 4/4 bottles for Group B Strep. Repeat blood cultures 05/03/24 are NGTD thus far. -TTE negative for endocarditis (but has mod-severe MR). Lumbar MRI negative for infectious process. Qualifiers: Sepsis acute organ dysfunction status: without acute organ dysfunction (4) Moderate to severe mitral regurgitation Impression: She denies having a history of a murmur in the past, but exam at the time of admission showed a loud/harsh 3/6 systolic murmur throughout her precordium with some radiation to her back. -TTE showed moderate to severe mitral regurgitation with thickening of mitral valve leaflets but no vegetation noted. -LVEF > 70% with normal LV size. She does have severe left atrial enlargement. -As long as she clears her bacteremia, she can be referred to Cardiology as an outpatient to follow this and determine next steps. 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 After she stopped drinking she has had low solute intake but has been trying to drink water to stay hydrated. 5 days ago when she presented to the emergency department her sodium was 124 which was likely secondary to poor solute intake, increased free water intake in the setting of chronic hyponatremia. Her sodium was still low at presentation (though improved from several days ago), due to the same reasons noted above. -Received IV fluids initially but these have since been discontinued. Sodium has improved. -Her baseline sodium appears to be 128-130. -Daily BMP to monitor sodium level. (6) Generalized weakness Impression: Her generalized weakness is likely multifactorial secondary to hyponatremia, hypomagnesemia, hypokalemia in the setting of alcohol abuse and active seps is/bacteremia. -Lumbar MRI is negative for pathologic cause. -PT/OT recommending SNF placement, anticipate possibly medically ready for discharge on Monday if her cultures are negative and we can place PICC line/arrange for outpatient IV antibiotics. (7) Hypokalemia Impression: She received oral supplements in the ED for a potassium of 3.2. Resolved with t reatment. (8) Hypomagnesemia Impression: Resolved with supplementation (9) Alcohol abuse Impression: She reportedly used to drink 4 to 5 glasses of wine every day but decided to quit around April 22, 2024. She denies any drinking since then and denies any delirium tremens symptoms. -Continue oral thiamine, folate and multivitamin replacement. -Check TSH, B12, Folate given macrocytosis, though the macrocytosis is likely due to her alcohol abuse.
[2024-05-05 05:04] LABS: BASOPHILS # (AUTO) 0.1 10^3/uL (0.0-0.1); BASOPHILS % (AUTO) 0.4 %; EOSINOPHILS # (AUTO) 0.1 10^3/uL (0.0-0.7); EOSINOPHILS % (AUTO) 0.7 %; HCT - HEMATOCRIT 28.7 % (37.0-47.0); HGB - HEMOGLOBIN 9.4 g/dL (12.0-16.0); LYMPHOCYTES # (AUTO) 1.1 10^3/uL (1.5-3.5); LYMPHOCYTES % (AUTO) 9.5 %; MEAN CORPUSCULAR HEMOGLOBIN 33.5 pg (27.0-31.0); MEAN CORPUSCULAR HGB CONC 32.8 g/dL (32.0-36.0); MEAN CORPUSCULAR VOLUME 102.1 fL (81.0-99.0); MEAN PLATELET VOLUME 9.6 fL (7.9-10.8); MONOCYTES # (AUTO) 0.7 10^3/uL (0.0-1.0); MONOCYTES % (AUTO) 5.8 %; NEUTROPHILS # (AUTO) 9.2 10^3/uL (1.5-6.6); NEUTROPHILS % (AUTO) 82.4 %; PLT - PLATELET COUNT 349 10^3/uL (130-450); RED BLOOD COUNT 2.81 10^6/uL (4.20-5.40); RED CELL DISTRIBUTION WIDTH 14.3 % (12.0-15.0); WHITE BLOOD COUNT 11.1 x10^3/uL (4.8-10.8)
[2024-05-05 05:37] LABS: CALCIUM 8.3 mg/dL (8.5-10.3); CREATININE 0.7 mg/dL (0.6-1.3); POTASSIUM 3.3 mmol/L (3.5-4.5)
[2024-05-05 05:40] LABS: THYROID STIMULATING HORMONE 2.03 uIU/mL (0.34-5.60)
[2024-05-05] MEDS: POTASSIUM CHLORIDE 10 MEQ CAPSULE PO SCH (09:22)
--- NOTE | 2024-05-05 11:02 | PROVIDER PROGRESS NOTE ---
Subjective - Prog Note Date Prog Note Date: 05/05/24 Prog Note Time: 11:00 - Subjective Pt reports feeling: Improved Subjective: No acute events overnight. She denies having any new symptoms and overall feels well though she does have questions regarding SNF placement. Denies any fevers, chills, night sweats, chest pain, palpitations, cough, dyspnea. Objective - Vital Signs/Intake & Output Reviewed Vital Signs: Yes Vital Signs: Vital Signs x48h Temp Pulse Resp BP Pulse Ox 05/05/24 09:41 36.7 C 75 22 127/81 H 95 Intake & Output: Intake & Output 05/02/24 05/03/24 05/04/24 05/05/24 23:59 23:59 23:59 23:59 Intake Total 4042 3380 1850 240 Balance 4042 3380 1850 240 - Objective General Appearance: positive: No acute distress, Alert Eyes Bilateral: positive: Normal inspection, PERRL, EOMI ENT: positive: ENT inspection nml, Pharynx nml, No signs of dehydration Neck: positive: Nml inspection, Thyroid nml, No JVD, Trachea midline Respiratory: positive: Chest non-tender, No respiratory distress, Breath sounds nml. negative: Wheezes, Rales, Rhonchi Cardiovascular: positive: Regular rate & rhythm, No gallop, Systolic murmur (Loud 3/6 systolic murmur at apex with radiation to posterior chest) Abdomen: positive: Non-tender, No organomegaly, Nml bowel sounds, No distention Skin: positive: Color nml, Warm, Dry Extremities: positive: Other (Left upper extremity cellulitis is significantly improved with mild tenderness only and no fluctuance, induration or drainage) Neurologic/Psychiatric: positive: Oriented x3, CN's nml (2-12) - Lab Results Fish Bones: 05/05/24 04:45 05/05/24 04:45 Other Labs: Lab Results x24hrs 05/05/24 05/05/24 Range/Units 04:45 04:45 WBC 11.1 H (4.8-10.8) x10^3/uL RBC 2.81 L (4.20-5.40) 10^6/uL Hgb 9.4 L (12.0-16.0) g/dL Hct 28.7 L (37.0-47.0) % MCV 102.1 H (81.0-99.0) fL MCH 33.5 H (27.0-31.0) pg MCHC 32.8 (32.0-36.0) g/dL RDW 14.3 (12.0-15.0) % Plt Count 349 (130-450) 10^3/uL MPV 9.6 (7.9-10.8) fL Neut # (Auto) 9.2 H (1.5-6.6) 10^3/uL Lymph # (Auto) 1.1 L (1.5-3.5) 10^3/uL [place] # (Auto) 0.7 (0.0-1.0) 10^3/uL Eos # (Auto) 0.1 (0.0-0.7) 10^3/uL Baso # (Auto) 0.1 (0.0-0.1) 10^3/uL Absolute Nucleated RBC 0.00 x10^3/uL Nucleated RBC % 0.0 /100WBC Sodium 133 L (135-145) mmol/L Potassium 3.3 L (3.5-4.5) mmol/L Chloride 102 (101-111) mmol/L Carbon Dioxide 25 (21-32) mmol/L Anion Gap 6.0 (6-13) BUN 8 (6-20) mg/dL Creatinine 0.7 (0.6-1.3) mg/dL Estimated GFR (MDRD) 82 L (>89) Glucose 96 (74-104) mg/dL Calcium 8.3 L (8.5-10.3) mg/dL Vitamin B12 295 (180-914) pg/mL Folate 10.3 (5.90 - >24.8) ng/mL TSH 2.03 (0.34-5.60) uIU/mL Free T4 Direct 1.40 (0.58-1.64) ng/dL Sepsis Event Note (H) - Evaluation Current Stage of Sepsis: Resolved Possible source of Sepsis: positive: Skin/soft tissue Assessment/Plan - Problem List (1) Left arm cellulitis Impression: She first noted redness, swelling and pain on Monday04/28/24. She denies any puncture wound or traumatic event that may have started this. Since then it spread and worsened, associated with subjective fevers, chills and night sweats. Cellulitis appeared streptococcal in nature on exam at time of presentation; no evidence for abscess or necrotizing infection. -XR of the hand/wrist/forearm show no subcutaneous emphysema, foreign body or other pathology. -Continue IV Ceftriaxone 2 gm q24h. Treat bacteremia as noted below. -Cellulitis continues to improve compared to admission (less red, no extension, no abscess formation). (2) Bacteremia due to group B Streptococcus Impression: She has group B streptococcus growing in 4/4 bottles of her admission blood cultures from 05/01/2024. Likely source is her left upper extremity cellulitis. -Repeat blood cultures from 05/03/24 are NGTD thus far. -If persistently bacteremic, will likely need transferred for transesophageal echocardiogram for presumptive endocarditis. -Continue IV Ceftriaxone 2 gm q24hr. -If repeat blood cultures stay negative, then can likely plan for PICC line placement and IV Ceftriaxone at home for total 14 day course of antibiotics from her first negative blood culture. -Plan for PICC placement tomorrow if cultures remain negative. Would be ready for SNF placement once PICC line placed. (3) Sepsis Impression: Her sepsis is secondary to her left upper extremity cellulitis along with Group B Streptococcal bacteremia. She met criteria for sepsis due to tachycardia, leukocytosis and fever in the setting of left upper extremity cellulitis at the time of admission. -Sepsis has resolved at this time. Lumbar MRI negative for infectious issue. TTE negative for endocarditis. -Continue IV antibiotics as noted above. Blood cultures from admission are positive 4/4 bottles for Group B Strep. Repeat blood cultures 05/03/24 are NGTD thus far. Qualifiers: Sepsis acute organ dysfunction status: without acute organ dysfunction (4) Moderate to severe mitral regurgitation Impression: She denies having a history of a murmur in the past, but exam at the time of admission showed a loud/harsh 3/6 systolic murmur throughout her precordium with some radiation to her back. -TTE showed moderate to severe mitral regurgitation with thickening of mitral valve leaflets but no vegetation noted. -LVEF > 70% with normal LV size. She does have severe left atrial enlargement. -As long as she clears her bacteremia, she can be referred to Cardiology as an outpatient to follow this and determine next steps. 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 After she stopped drinking she has had low solute intake but has been trying to drink water to stay hydrated. 5 days ago when she presented to the emergency department her sodium was 124 which was likely secondary to poor solute intake, increased free water intake in the setting of chronic hyp onatremia. Her sodium was still low at presentation (though improved from several days ago), due to the same reasons noted above. -Received IV fluids initially but these have since been discontinued. Sodium has improved. -Her baseline sodium appears to be 128-130. -Daily BMP to monitor sodium level. (6) Generalized weakness Impression: Her generalized weakness is likely multifactorial secondary to hyponatremia, hypomagnesemia, hypokalemia in the setting of alcohol abuse and active sepsis/bacteremia. -PT/OT recommending SNF placement, anticipate possibly medically ready for discharge on Monday if her cultures are negative and we can place PICC line/a rrange for outpatient IV antibiotics. (7) Hypokalemia Impression: Hypokalemic on admission, resolved, but today hypokalemic again. -Potassium supplements added today. (8) Alcohol abuse Impression: She reportedly used to drink 4 to 5 glasses of wine every day but decided to quit around April 22, 2024. She denies any drinking since then and denies any delirium tremens symptoms. -Continue oral thiamine, folate and multivitamin replacement. -She has macrocytosis, likely from EtOH abuse. TSH, B12, Folate normal.
[2024-05-05] MEDS: CYCLOBENZAPRINE 10 MG TABLET PO PRN (16:45)
[2024-05-06 04:49] LABS: BASOPHILS # (AUTO) 0.1 10^3/uL (0.0-0.1); BASOPHILS % (AUTO) 0.4 %; EOSINOPHILS # (AUTO) 0.1 10^3/uL (0.0-0.7); EOSINOPHILS % (AUTO) 0.8 %; HCT - HEMATOCRIT 27.9 % (37.0-47.0); HGB - HEMOGLOBIN 9.1 g/dL (12.0-16.0); LYMPHOCYTES # (AUTO) 0.9 10^3/uL (1.5-3.5); LYMPHOCYTES % (AUTO) 6.7 %; MEAN CORPUSCULAR HEMOGLOBIN 33.2 pg (27.0-31.0); MEAN CORPUSCULAR HGB CONC 32.6 g/dL (32.0-36.0); MEAN CORPUSCULAR VOLUME 101.8 fL (81.0-99.0); MEAN PLATELET VOLUME 9.6 fL (7.9-10.8); MONOCYTES # (AUTO) 0.6 10^3/uL (0.0-1.0); MONOCYTES % (AUTO) 4.5 %; NEUTROPHILS # (AUTO) 12.1 10^3/uL (1.5-6.6); NEUTROPHILS % (AUTO) 86.5 %; PLT - PLATELET COUNT 370 10^3/uL (130-450); RED BLOOD COUNT 2.74 10^6/uL (4.20-5.40); RED CELL DISTRIBUTION WIDTH 14.2 % (12.0-15.0)
[2024-05-06 05:15] LABS: CRP - C-REACTIVE PROTEIN 9.8 mg/dL (<0.5); MAGNESIUM 1.6 mg/dL (1.7-2.3)
[2024-05-06 05:30] LABS: CALCIUM 8.4 mg/dL (8.5-10.3); CREATININE 0.7 mg/dL (0.6-1.3)
[2024-05-06] MEDS ORDERED: lidocaine 1% 20 ML MDV ONE (12:31)
--- NOTE | 2024-05-06 13:08 | XRAY Report ---
PROCEDURE: Chest for Line Placement INDICATIONS: PICC line placement TECHNIQUE: One view of the chest was acquired. COMPARISON: None. FINDINGS: Surgical changes and devices: Interval right arm PICC line placement, the tip which projects to the distal SVC. Lungs and pleura: Interstitial pulmonary edema. Small bilateral pleural effusions and minimal bibasi lar atelectasis. Mediastinum: Mediastinal contours appear normal. Heart size is mildly enlarged. Bones and chest wall: No suspicious bony lesions. Overlying soft tissues appear unremarkable. IMPRESSION: 1. PICC line in satisfactory position. 2. Congestive heart failure. Reviewed by: Emre Longoria MD on 05/06/2024 1:06 PM PDT Approved by: Emre Longoria MD on 05/06/2024 1:06 PM PDT Station ID: [id number]
--- NOTE | 2024-05-06 13:13 | ANESTHESIA PROCEDURE NOTE ---
Anesth Central Line Template - Central Line Central Line Preparation: Consent Obtained, Time out completed, Ultrasound used, Sterile prep and drape Central line location: Right Basilic Central line type: PICC Single Lumen Central line catheter tip site resides: Superior vena cava (SVC) Central line aftercare: Chlorhexidine disc placed, Secured, Placement confirmed, No pneumothorax, No complications, Bundle checklist complete, Pt tolerated well
--- NOTE | 2024-05-06 13:49 | Discharge Plan ---
"Discharge Plan for SNF / [facility] - Discharge Plan And Transition Orders Problem Reviewed?: Yes Disposition: 03 SNF DC/Xfer Condition: Stable Allergies and Adverse Reactions: Allergies Allergy/AdvReac Type Severity Reaction Status Date / Time No Known Drug Allergies Allergy Verified 05/01/24 12:16 Health Concerns: You were admitted to the hospital for generalized weakness, low sodium level and sepsis that was due to a cellulitis on your left arm/wrist/hand. You are given IV fluids and IV antibiotics for your sepsis and cellulitis. With antibiotics and fluids your sepsis improved and did not cause any significant issues or harm to your body. Your cellulitis improved with the IV antibiotics and was essentially resolved at the time of discharge. We did check cultures of your blood which look for bacteria in the blood, and in your case you developed bacteremia which is when bacteria is found in the blood. The type of bacteria you had was called Group B Streptococcus, which is a common type of bacteria that causes cellulitis. Most likely you have developed the infection in your wrist which led to the bacteria showing up in your blood. We repeated your blood cultures after appropriate antibiotics and showed that the bacteria was no longer present in your blood. Since your infection was responding appropriately to the antibiotics, it was felt appropriate that you would be able to be discharged. Given the bacteria in your blood and severity of infection however you do require IV antibiotics for a total 14-day course of treatment. That is why we placed a PICC line, which is a large IV in your arm, so that you can receive daily IV antibiotic at the nursing facility. The antibiotics will continue through until 05/16/2024. Your sodium level was low when you presented which was likely due to alcohol use, not eating and drinking well and your acute illness. With IV fluids your sodium level improved. He did remain weak however and our PT/OT evaluation indicated he would benefit from long-term facility placement for continued inpatient rehabilitation and strengthening. During your stay we also did an ultrasound of your heart due to hearing a murmur, and the ultrasound (echocardiogram) indicated that you have a leaky mitral valve. This is called mitral regurgitation, which was moderate to severe in your case. The ultrasound did not show any evidence of infection on the heart valve. You should discuss this with your primary care provider and get referred to cardiology as an outpatient so they can follow this going forward. Please be sure to stop drinking alcohol as this can have many significant negative health impacts. If you want assistance please reach out and your nursing facility can assist with resources. Plan of Treatment: You are being discharged to [facility] for inpatient rehabilitation and strengthening. This should be a temporary stay until you get the strength back to be safe at home. NEW MEDICATIONS: 1. IV Ceftriaxone - 1 gram daily at 09:00, starting 05/07/2024 and ending after the morning dose on 05/16/2024. 2. Multivitamin daily - take one tab by mouth daily 3. Magnesium Oxide 400 mg twice daily (your magnesium level was low) 4. Potassium Chloride 20 mEq once daily (your potassium level was low) 5. Thiamine 100 mg once daily (alcohol use gives you low thiamine levels) Care Goals: He will work with Physical Therapy and Occupational Therapy at [facility] with the ultimate goal to improve your strength and return home in a safe manner. He will complete your IV antibiotics on May 16. This can be completed while you are at [facility] however if you are discharged from [facility] before then, home health can assist with continuing the antibiotics at home. Assessment: She is alert and oriented, in no acute distress. She has no signs of dehydration and no JVD. Her lungs are clear without any respiratory distress and no wheezing, rales or rhonchi. Her heart is normal rate and regular rhythm, with a loud systolic murmur at the left lower sternal border. Her abdomen is soft, nontender, nondistended with positive bowel sounds. Her skin is warm and dry without rashes. Her left wrist, where the infection was, is much improved and not erythematous anymore. She has no significant peripheral edema. She is alert and oriented without focal neurologic deficit. - SNF / [facility] Transition Orders Admit to (Facility): [facility] Discharge Diagnosis: Group B Streptococcal Bacteremia Medicare Certification Statement: I certify that [facility] is medically necessary on a continuing basis for any of the conditions for which she/he is receiving care during hospitalization. Notify PCP of admission and forward orders to primary provider for signature. Weight on admission and: Weekly Other Notification Orders: Call PCP immediately if patient develops dyspnea, chest pain/tightness or edema. House Bowel Program: Yes Additional Bowel Program Orders: If no BM after 2 days, nurse may give M.O.M. 30ml PO PRN and/or ducolax Supp 1 DC and/or SUSANNE 250mg P.O., and/or senna 1-2 tabs PO. On day 3 nurse may give repeat above order until residents constipation is resolved. Treatments & Other Orders: IV ceftriaxone 1 g daily, starting at 9 AM on 05/07/2024. Last dose at 9 AM on 05/16/2024. Once IV antibiotics are completed, her PICC line can be removed. Lab Tests or X-ray Orders: She should have a CBC, BMP, magnesium level checked on 05/13/2024 Medication Orders: PLEASE REFER TO THE DISCHARGE MEDICATION LIST. Insulin Orders?: No - Diet Texture: Regular - Therapies | Activity Therapy: Evaluation | Treat if indicated: PT, OT Rehabilitation Potential: Return to independent living Activity: Activity as Tolerated Weight Bearing: Full Weight Assistance Devices: Walker"
--- NOTE | 2024-05-06 14:07 | DISCHARGE SUMMARY ---
Discharge Summary Admit Date: 05/01/24 Discharge Date: 05/06/24 Discharging Provider: Ishmael Wright MD Primary Care Provider: Werner Pisano MD Code Status: Do Not Attempt Resuscitation Condition at Discharge: Stable Discharge Disposition: 03 SNF DC/Xfer Discharge Facility Name: [facility] - DIAGNOSES Admission Diagnoses: Cellulitis of Left Upper Extremity Discharge Diagnoses with Status of Each Condition: 1. Group B Streptococcus Bacteremia - resolved 2. Cellulitis of Left Upper Extremity - improved 3. Sepsis - resolved 4. Moderate to Severe Mitral Regurgitation - stable 5. Hyponatremia - resolved 5. Hypomagnesemia - stable 6. Hypokalemia - stable 7. Alcohol Abuse - stable (no withdrawal) 8. Generalized Weakness - stable, needing SNF placement - HPI History of Present Illness: Mandi Izquierdo is a 74 year old woman with history of alcohol abuse and lower abdominal hernia after colectomy 2018 who presents with generalized weakness. She has a longstanding history of alcohol abuse and typically will drink 5 to 6 glasses of wine daily. Approximately 10 days ago she decided to stop drinking "cold turkey". She had minor withdrawal symptoms however she did not have significant symptoms from this though she did have anorexia and poor appetite aside from drinking water. Labs were checked as an outpatient and her sodium was found to be 124. She was referred to the emergency department here at [facility] and she was given IV fluids and ultimately discharged home as she has a history of chronic hyponatremia in the range of 128-130. Since going home the patient indicates that she has been feeling worse with increased generalized weakness. On April 28 the patient started to notice redness around her left hand and wrist region. She denied having any puncture wounds or traumatic injury at the time. The redness has spread to include most of the back of her left hand and is now extending up her left forearm. This is initially associated with some pain however she has full range of motion of her wrist. This is also associated with fevers, chills and night sweats. She did have a dry nonproductive cough for the past few days however that has since resolved. She denies having any dyspnea, nausea, vomiting, abdominal pain but does report having poor appetite and constipation. She has also been having problems sleeping but denies having any headaches, vision changes. In the past 24 hours she has had difficulty ambulating as she feels too weak in general along with having some left flank pain. She denies having any lower extremity paresthesias, saddle anesthesia, urinary/fecal incontinence or retention. She ultimately came to the ER for further evaluation given the symptoms. In the emergency department she was found to be febrile to 38.2 and tachycardic to 106 with a blood pressure in the 90 to low 100 systolic range. Labs showed a WBC of 16.6 along with a sodium of 128, potassium 3.2 and magnesium 1.5 but she did have a normal lactic acid of 1.0. Hand and wrist/forearm x-rays showed no subcutaneous emphysema or foreign body. Her left forearm and hand appeared cellulitic in nature and she was given IV cefazolin after receiving 1 L of IV fluid as well as having 2 blood cultures obtained. She was admitted for further care and evaluation of her deconditioning, sepsis from cellulitis and other medical issues. - CONSULTS | PROCEDURES Consultations: None - HOSPITAL COURSE Hospital Course: OVERVIEW OF HOSPITAL COURSE: She was initially placed on IV vancomycin and ceftriaxone for her cellulitis and sepsis. Her blood cultures from admission showed 4 out of 4 bottles growing group B streptococcus agalactiae, which ultimately were pansensitive. Her vancomycin was discontinued and she was continued on ceftriaxone 2 g daily. She was given IV fluids for sepsis and her sepsis resolved rapidly, with her cellul itis improving with antibiotic therapy. Repeat blood cultures were obtained 48 hours after antibiotic therapy, which remained negative for 3 days. A PICC line was placed at that time and she should continue 2 g IV ceftriaxone daily with last dose on 05/16/2024 for a total of 14-day course of antibiotic from first negative blood culture. During her stay she had complained of left lower back and midline back pain that seems musculoskeletal in nature. Given her high-grade bacteremia, a lumbar MRI with and without contrast was obtained that showed degenerative changes only and no acute infectious issue. Her pain improved with ibuprofen as well as as needed Flexeril for muscle spasms. She was noted to have a loud systolic murmur on presentation which she was not aware of however she has not seen a primary doctor for some time now. An echocardiogram was obtained given her high-grade bacteremia, which showed she had moderate to severe mitral regurgitation however there was no evidence of vegetation. She remained afebrile and her repeat blood cultures stayed negative as noted above thus it was felt that she did not have endocarditis. She was advised to be referred to cardiology as an outpatient on a nonemergent basis so that her mitral regurgitation can be monitored appropriately. During her stay she did have issues with ongoing electrolyte disturbances. She initially was hyponatremic to 128 on presentation but that improved to 133-135 at the time of discharge after receiving IV fluids. She also was persistently hypokalemic and hypomagnesemic, thus she required daily supplements with potassium chloride and magnesium oxide. She should have a repeat BMP and magnesium level drawn 1 week after discharge. One of her presenting complaints was generalized weakness and she underwent evaluation by PT/OT with recommendations for SNF placement in order to improve strength and gait stability. She was discharged to [facility]. She was advised to stop alcohol use but she did not have any alcohol withdrawal while hospitalized. She was prescribed a multivitamin and thiamine at the time of discharge though those may not necessarily need to be continued on an ongoing basis in the future. HOSPITAL COURSE BY PROBLEM: (1) Left arm cellulitis Impression: She first noted redness, swelling and pain on Monday04/28/24. She denies any puncture wound or traumatic event that may have started this. Since then it spread and worsened, associated with subjective fevers, chills and night sweats. Cellulitis appeared streptococcal in nature on exam at time of presentation; no evidence for abscess or necrotizing infection. -XR of the hand/wrist/forearm show no subcutaneous emphysema, foreign body or other pathology. -Continue IV Ceftriaxone 2 gm q24h. Treat bacteremia as noted below. -Cellulitis essentially resolved. (2) Bacteremia due to group B Streptococcus Impression: She has group B streptococcus growing in 4/4 bottles of her admission blood cultures from 05/01/2024. Likely source is her left upper extremity cellulitis. -Repeat blood cultures from 05/03/24 are NGTD thus far. -If persistently bacteremic, will likely need transferred for transesophageal echocardiogram for presumptive endocarditis. -Continue IV Ceftriaxone 2 gm q24hr. -Repeat blood cultures on 05/03/2024 have been no growth to date. PICC line was placed today and anticipate continuing IV ceftriaxone 2 g daily with last dose on 05/16/2024. Can remove PICC line at that time. (3) Sepsis Impression: Her sepsis is secondary to her left upper extremity cellulitis along with Group B Streptococcal bacteremia. She met criteria for sepsis due to tachycardia, leukocytosis and fever in the setting of left upper extremity cellulitis at the time of admission. -Sepsis has resolved at this time. Lumbar MRI negative for infectious issue. TTE negative for endocarditis. -Blood cultures from admission are positive / bottles for Group B Strep. Repeat blood cultures 05/03/24 are NGTD. -Continue IV Ceftriaxone as noted above. (4) Moderate to severe mitral regurgitation Impression: She denies having a history of a murmur in the past, but exam at the time of admission showed a loud/harsh 3/6 systolic murmur throughout her precordium with some radiation to her back. -TTE showed moderate to severe mitral regurgitation with thickening of mitral valve leaflets but no vegetation noted. -LVEF > 70% with normal LV size. She does have severe left atrial enlargement. -She should be referred to cardiology as an outpatient on a nonemergent basis so she can undergo appropriate follow-up and monitoring of her mitral regurgitation. 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 After she stopped drinking she has had low solute intake but has been trying to drink water to stay hydrated. 5 days ago when she presented to the emergency department her sodium was 124 which was likely secondary to poor solute intake, increased free water intake in the setting of chronic hyponatremia. Her sodium was still low at presentation (though improved from several days ago), due to the same reasons noted above. -Received IV fluids initially but these have since been discontinued. Sodium has improved. -Her baseline sodium appears to be 128-130 in the past, currently 133-135. (6) Generalized weakness Impression: Her generalized weakness is likely multifactorial secondary to hyponatremia, hypomagnesemia, hypokalemia in the setting of alcohol abuse and active sepsis/bacteremia. -PT/OT recommending SNF placement, anticipate possibly medically ready for discharge on Monday if her cultures are negative and we can place PICC line/arrange for outpatient IV antibiotics. (7) Hypokalemia Impression: Hypokalemic on admission, resolved, but today hypokalemic again. -Daily potassium chloride. -Repeat BMP as outpatient on 05/13/24. Can discontinue supplements if appropriate at that time. (8) Alcohol abuse Impression: She reportedly used to drink 4 to 5 glasses of wine every day but decided to quit around April 22, 2024. She denies any drinking since then and denies any delirium tremens symptoms. -Continue oral thiamine and multivitamin replacement. -She has macrocytosis, likely from EtOH abuse. TSH, B12, Folate normal. - ALLERGIES Allergies/Adverse Reactions: Allergies Allergy/AdvReac Type Severity Reaction Status Date / Time No Known Drug Allergies Allergy Verified 05/01/24 12:16 - MEDICATIONS Home Medications: Ambulatory Orders Medication Instructions Recorded Confirmed Acetaminophen [Tylenol] 650 mg PO Q4HR PRN tab 05/06/24 Cyclobenzaprine [Flexeril] 5 mg PO TID PRN tab 05/06/24 Docusate Sodium 250Mg Capsule 250 mg PO DAILY cap 05/06/24 [Colace 250Mg Capsule] Ibuprofen [Motrin] 600 mg PO Q6HR PRN tab 05/06/24 Magnesium Oxide [Mag Ox] 400 mg PO BID tab 05/06/24 Melatonin 3 mg PO QPM PRN tab 05/06/24 Multivitamin [Theragran] 1 tab PO DAILY tab 05/06/24 Potassium Chloride [Micro-K] 20 meq PO DAILYWM cap 05/06/24 Senna [Senokot] 8.6 mg PO BID tab 05/06/24 Thiamine [Vitamin B-1] 100 mg PO DAILY tab 05/06/24 cefTRIAXone [Rocephin 2 gram] 2 gm IV DAILY 10 Days #10 ml 05/06/24 polyethylene glycoL 3350 [Miralax] 17 gm PO DAILY PRN packet 05/06/24 - PHYSICAL EXAM AT DISCHARGE General Appearance: positive: No acute distress, Alert Eyes Bilateral: positive: Normal inspection, PERRL, EOMI ENT: positive: ENT inspection nml, Pharynx nml, No signs of dehydration Neck: positive: Nml inspection, Thyroid nml, No JVD, Trachea midline Respiratory: positive: No respiratory distress, Breath sounds nml. negative: Wheezes, Rales, Rhonchi Cardiovascular: positive: Regular rate & rhythm, No gallop, Systolic murmur (Loud 3/6 systolic murmur at the apex with radiation throughout the precordium and to the posterior left chest) Peripheral Pulses: positive: 2+ Abdomen: positive: Non-tender, No organomegaly, Nml bowel sounds, No distention Back: positive: Nml inspection Skin: positive: Color nml, No rash, Warm, Dry Extremities: positive: Nml appearance, Other (Left wrist and arm without significant erythema) Neurologic/Psychiatric: positive: Oriented x3, CN's nml (2-12), Motor nml, Sensation nml - LABS Result Diagrams: 05/06/24 04:34 05/06/24 04:34 Other Lab Results: Laboratory Results 05/06/24 04:34: Procalcitonin Immunoas 0.21 05/06/24 04:34: ESR 34 H 05/06/24 04:34: Sodium 133 L, Potassium 4.0, Chloride 101, Carbon Dioxide 25, Anion Gap 7.0, BUN 8, Creatinine 0.7, Estimated GFR (MDRD) 82 L, Glucose 92, Calcium 8.4 L, Magnesium 1.6 L, C-Reactive Protein 9.8 H 05/06/24 04:34: WBC 14.0 H, RBC 2.74 L, Hgb 9.1 L, Hct 27.9 L, MCV 101.8 H, MCH 33.2 H, MCHC 32.6, RDW 14.2, Plt Count 370, MPV 9.6, Neut # (Auto) 12.1 H, Lymph # (Auto) 0.9 L, [place] # (Auto) 0.6, Eos # (Auto) 0.1, Baso # (Auto) 0.1, Absolute Nucleated RBC 0.00, Nucleated RBC % 0.0 05/05/24 04:45: Sodium 133 L, Potassium 3.3 L, Chloride 102, Carbon Dioxide 25, Anion Gap 6.0, BUN 8, Creatinine 0.7, Estimated GFR (MDRD) 82 L, Glucose 96, Calcium 8.3 L, Vitamin B12 295, Folate 10.3, TSH 2.03, Free T4 Direct 1.40 05/05/24 04:45: WBC 11.1 H, RBC 2.81 L, Hgb 9.4 L, Hct 28.7 L, MCV 102.1 H, MCH 33.5 H, MCHC 32.8, RDW 14.3, Plt Count 349, MPV 9.6, Neut # (Auto) 9.2 H, Lymph # (Auto) 1.1 L, [place] # (Auto) 0.7, Eos # (Auto) 0.1, Baso # (Auto) 0.1, Absolute Nucleated RBC 0.00, Nucleated RBC % 0.0 - DIAGNOSTIC IMAGING Diagnostic Imaging Results: Final report reviewed Diagnostic Imaging Results Comments: Hand x-ray 05/01/2024 Osteopenia. Left hand and wrist joint osteoarthritis. No acute fracture or dislocation. No gross bony erosive changes. Forearm x-ray 05/01/2024 No acute radiographic abnormality in the bones. If there is high concern for further derangement, consider MRI evaluation. Chest x-ray 05/01/2024 Mild pulmonary edema Lumbar spine MRI with/without contrast 05/02/2024 Focal lower lumbar spine degenerative changes are seen. No infectious patholog y. TTE 05/01/2024 1. Normal LV size and systolic function, LVEF greater than 70% 2. Normal RV size and systolic function. 3. Moderatesevere mitral regurgitation. - SEPSIS Current Stage of Sepsis: Resolved Possible source of Sepsis: Skin/soft tissue - FOLLOW UP Follow Up: Will need follow-up with her PCP after discharge from SNF. Will need outpatient referral on a nonemergent basis to cardiology for her mitral regurgitation. - TIME SPENT Time Spent in Discharge (Minutes): 35
[2024-05-06 16:27] VITALS: BP 149/85; O2SAT 94
== END 2024-05-06 16:00 | DRG 872 ==
LOC: ED 11:49 → MS2 14:14 → OBSVTOIN 05-02 13:00
PROVIDERS: ADMIT Hospitalist; ATTEND Hospitalist
PROC: 02HV33Z Insertion of Infusion Device into Superior Vena Cava, Percutaneous Approach (ICD-10-PCS; principal; 2024-05-06)
DX: A40.1 Sepsis due to streptococcus, group B (principal); L03.114 Cellulitis of left upper limb; E87.1 Hypo-osmolality and hyponatremia; I34.0 Nonrheumatic mitral (valve) insufficiency; E83.42 Hypomagnesemia; E87.6 Hypokalemia; F10.10 Alcohol abuse, uncomplicated; R01.1 Cardiac murmur, unspecified; R53.1 Weakness; I45.10 Unspecified right bundle-branch block; M54.50 Low back pain, unspecified; R05.9 Cough, unspecified; G47.9 Sleep disorder, unspecified; K59.00 Constipation, unspecified; Z66 Do not resuscitate; Z87.891 Personal history of nicotine dependence; Z90.49 Acquired absence of other specified parts of digestive tract
CPT/HCPCS: 36415; 51701; 71045; 72158; 73090; 73130; 80048; 80053; 81001; 82607; 82746; 83605; 83690; 83735; 84100; 84145; 84439; 84443; 85025; 85651; 86140; 87040; 87077; 87154; 87181; 87637; 93005; 93307; 96361; 96365; 96366; 96367; 96368; 96375; 97161; 99284; 99285; A9270; G0378; J1650; J3370; J3590; J7040; 81003; 87086

== ENCOUNTER 2024-05-15 06:37 | Outpatient (CLI) | payer MEDICARE | END 2024-05-15 23:59 | disposition critical access hospital (66) | LOC: EMS 06:37 | DX: R06.01 Orthopnea (principal); I50.9 Heart failure, unspecified; J44.9 Chronic obstructive pulmonary disease, unspecified | CPT/HCPCS: A0425; A0429 ==

== ENCOUNTER 2024-05-15 06:44 | Emergency (ER) | payer MEDICARE ==
--- NOTE | 2024-05-15 07:19 | ED Physician Documentation ---
History of Present Illness - Stated complaint Stated Complaint: SOA - Chief complaint Chief Complaint: General - History obtained from History obtained from: Patient - Additonal information Additional information: 74-year-old woman with recent hospitalization for left upper extremity cellulitis with group B strep bacteremia now at a SNF for ongoing antibiotic therapy. During her admission earlier this month she was noted to have a heart murmur with echocardiogram done on May 01 showing moderate to severe MR. Over the last few days she has developed shortness of breath with orthopnea. She has a mild cough with it. Denies pedal edema or chest pain. No history of CHF. She does have a history of COPD though. She was started on home oxygen yesterday or the day before. 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 : None HEENT: Chronic vision loss Psych: None Musculoskeletal: Osteoarthritis Derm: None - Past Surgical History Past Surgical History: Yes General: Appendectomy, Bowel surgery /DINKEY OPERATOR SLATE: Oophrectomy - Present Medications Home Medications: Ambulatory Orders Medication Instructions Recorded Confirmed Acetaminophen [Tylenol] 650 mg PO Q4HR PRN tab 05/06/24 05/15/24 Docusate Sodium 250Mg Capsule 250 mg PO DAILY cap 05/06/24 05/15/24 [Colace 250Mg Capsule] Ibuprofen [Motrin] 600 mg PO Q6HR PRN tab 05/06/24 05/15/24 Magnesium Oxide [Mag Ox] 400 mg PO BID tab 05/06/24 05/15/24 Melatonin 3 mg PO QPM PRN tab 05/06/24 05/15/24 Multivitamin [Theragran] 1 tab PO DAILY tab 05/06/24 05/15/24 Senna [Senokot] 8.6 mg PO BID tab 05/06/24 05/15/24 Thiamine [Vitamin B-1] 100 mg PO DAILY tab 05/06/24 05/15/24 polyethylene glycoL 3350 [Miralax] 17 gm PO DAILY PRN packet 05/06/24 05/15/24 Celecoxib [CeleBREX] 100 mg PO BID PRN 05/15/24 05/15/24 Cyclobenzaprine [Flexeril] 5 mg PO Q8HR PRN 05/15/24 05/15/24 Furosemide [Lasix] 20 mg PO DAILY #30 tablet 05/15/24 Potassium Chloride 10 meq PO DAILY #30 tab 05/15/24 Potassium Chloride [Micro-K] 20 meq PO DAILY 05/15/24 05/15/24 cefTRIAXone [Rocephin 2 gram] 2 gm IM DAILY 05/15/24 05/15/24 - Allergies Allergies/Adverse Reactions: Allergies Allergy/AdvReac Type Severity Reaction Status Date / Time No Known Drug Allergies Allergy Verified 05/01/24 12:16 - Social History Does the pt smoke?: No Smoking Status: Never smoker Does the pt drink ETOH?: Yes Does the pt have substance abuse?: No - Immunizations Immunizations are current?: Yes - POLST Patient has POLST: No POLST Status: DNR PD ED PE NORMAL - Vitals Vital signs reviewed: Yes - General General: Alert and oriented X 3, Other (Very mildly labored breathing but speaking in full sentences. Has a nasal cannula and running at 1 L. Sat about 93%.) - Cardiac Cardiac: RRR, Other (4 out of 6 decrescendo holosystolic murmur heard best at the left sternal border) - Respiratory Respiratory: Other (Rales bilaterally) - Abdomen Abdomen: Non tender - Extremities Extremities: No edema, No calf tenderness / cord - Neuro Neuro: Alert and oriented X 3, Normal speech - Psych Psych: Normal mood, Normal affect Results - Vitals Vitals: Vital Signs - 24 hr 05/15/24 05/15/24 05/15/24 06:51 08:05 10:00 Temperature 35.9 C L Heart Rate 89 73 82 Respiratory 22 16 22 Rate Blood Pressure 111/71 110/72 114/80 O2 Saturation 93 94 96 If not protocol 1 : Oxygen Flow, liters/minute 05/15/24 05/15/24 05/15/24 10:52 10:55 11:00 Temperature Heart Rate 173 H 166 H 150 H Respiratory 34 H 33 H 38 H Rate Blood Pressure 114/80 83/56 L 98/60 O2 Saturation 92 92 91 L If not protocol 1 1 3 : Oxygen Flow, liters/minute 05/15/24 05/15/24 05/15/24 11:05 11:10 11:15 Temperature Heart Rate 137 H 144 H 136 H Respiratory 35 H 25 H 28 H Rate Blood Pressure 73/57 L 76/63 L 101/82 H O2 Saturation 90 L 92 92 If not protocol 3 3 3 : Oxygen Flow, liters/minute 05/15/24 05/15/24 05/15/24 11:30 11:45 12:00 Temperature Heart Rate 147 H 152 H 155 H Respiratory 20 29 H 28 H Rate Blood Pressure 82/71 L 91/68 106/73 O2 Saturation 97 97 98 If not protocol 3 : Oxygen Flow, liters/minute 05/15/24 12:15 Temperature Heart Rate 100 Respiratory 29 H Rate Blood Pressure 115/62 O2 Saturation 97 If not protocol : Oxygen Flow, liters/minute Oxygen O2 Source Nasal cannula - EKG (time done) 0726 EKG releavant findings:: EKG personally interpreted by author of this note. Relevant findings are: Rate: Rate (enter#) (100) Rhythm: Sinus tachycardia, LAE Intervals: Other (IVCD) Ischemia: Normal ST segments. No: ST elevation c/w ischemia, ST depression 1043 EKG releavant findings:: EKG personally interpreted by author of this note. Relevant findings are: Rate: Rate (enter#) (166) Rhythm: Atrial fibrillation Intervals: RBBB QRS: LVH Ischemia: No: ST elevation c/w ischemia 1221 EKG releavant findings:: EKG personally interpreted by author of this note. Relevant findings are: Rate: Rate (enter#) (99) Rhythm: NSR, LAE Intervals: RBBB QRS: LVH - Labs Labs: Laboratory Tests 05/15/24 05/15/24 05/15/24 07:18 07:18 07:18 WBC 13.9 H RBC 3.18 L Hgb 10.5 L Hct 30.6 L MCV 96.2 MCH 33.0 H MCHC 34.3 RDW 13.8 Plt Count 509 H MPV 9.9 Neut # (Auto) 11.9 H Lymph # (Auto) 1.1 L Randolph # (Auto) 0.5 Eos # (Auto) 0.1 Baso # (Auto) 0.1 Absolute Nucleated RBC 0.00 Nucleated RBC % 0.0 Sodium 128 L Potassium 3.9 Chloride 97 L Carbon Dioxide 22 Anion Gap 9.0 BUN 10 Creatinine 0.5 L Estimated GFR (MDRD) 121 Glucose 102 Calcium 8.4 L Total Bilirubin 0.6 AST 23 ALT 18 Alkaline Phosphatase 149 H Troponin I High Sens B-Natriuretic Peptide 1140 H Total Protein 5.9 L Albumin 3.0 L Globulin 2.9 Albumin/Globulin Ratio 1.0 Lipase 20 05/15/24 05/15/24 07:18 11:30 WBC RBC Hgb Hct MCV MCH MCHC RDW Plt Count MPV Neut # (Auto) Lymph # (Auto) Randolph # (Auto) Eos # (Auto) Baso # (Auto) Absolute Nucleated RBC Nucleated RBC % Sodium Potassium Chloride Carbon Dioxide Anion Gap BUN Creatinine Estimated GFR (MDRD) Glucose Calcium Total Bilirubin AST ALT Alkaline Phosphatase Troponin I High Sens 239.1 H* B-Natriuretic Peptide Total Protein Albumin Globulin Albumin/Globulin Ratio Lipase - Rads (name of study) Single view chest x-ray demonstrates findings consistent with CHF. Relevant Findings:: Final report received, EMP independent interpretation of test CT angiography of the chest showing heart failure without pulmonary embolism. Relevant Findings:: Final report received, EMP independent interpretation of test PD Medical Decision Making - ED course ED course: She presents with dyspnea, history and physical most consistent with heart failure. Thromboembolic disease also considered given recent hospitalization. Chest x-ray and CT pulmonary angiogram showing congestive heart failure with pleural effusions, no evidence of PE. Otherwise her workup was notable for mild leukocytosis and anemia on CBC and hyponatremia on CMP with elevated BNP consistent with a primary diagnosis. She received 40 mg of IV Lasix here and her vital signs are unremarkable so she can be discharged back to the SNF but will need cardiology follow-up and consideration for CT surgery follow-up given the recent diagnosis of moderate to severe MR. Prior to ambulance pickup at 10:30 AM or so she was noted to be in a rapid irregular rhythm on the monitor consistent with rapid atrial fibrillation. I do not see any indication that this is a pre-existing problem, but of course intermittent rapid atrial fibrillation may contribute to her heart failure. Formal EKG was repeated and 15 mg of IV diltiazem was ordered. As the nurse started to give the digoxin blood pressure was fairly soft in the range of 83 over the mid 50s and I ordered calcium gluconate to be given as well. I did instruct the nurse to probably still go ahead and slowly push the diltiazem as her significant tachycardia may actually be the current cause for her hypotension. Obviously we do not want to give her extra fluids given her active CHF. After the 15 mg of diltiazem her blood pressure did come up a bit in the range of 100/70 and her heart rate came down to about 130. I will add on a troponin start a drip with diltiazem. She will need to be admitted, but no beds in the ICU available at this juncture so currently boarding. Subsequently her troponin came back quite positive at 239. I confirmed with lab staff that this was drawn at approximately 11:30 AM and queried if they had enough blood from the surveillance systems engineer draw around 7 AM to add 1 on and it sounds like they probably do but are confirming. I will order a second troponin but really this will be for trending purposes done at 7 AM. She still remained very tachycardic and bounced back up to about 150. Her hemodynamic status is borderline and she consented to electrical cardioversion. Subsequently but before we were able to do that procedure though she converted out of atrial fibrillation into a sinus tachycardia with a rate in the 90s. Her troponin done this morning at 0718 was 154, now 239 so that does represent a significant uptick and as such also probably has a diagnosis of non-STEMI whether that be a primary ACS event versus just demand, she is started on heparin. Also given aspirin. Patient is amenable to transfer as we do not have cardiology and [facility] was called. At patient's request I was able to update her son by phone, he is available at [phone]. Spoke with Dr. Kulkarni, registered nurse renal at [facility] at about 1:25 PM who agrees with transfer and she will see in consult. Now waiting for hospitalist there. She was excepted by the hospitalist, Dr. Muniz to [facility] at 1:50 PM pending bed availability. - Critical Care Time(min): 50 Time Includes: Direct patient care, Review records, Reassess patient, Document care, Coordinate care, Medical consult, Family consult for tx dec, See progress note Data interpretation: Labs, Pulse ox Procedures included in critical care time: Peripheral IV Procedures excluded from critical care time: EKG Departure - Departure Disposition: 02 Transfer Acute Care Hosp Clinical Impression: Moderate to severe mitral regurgitation Congestive heart failure Qualifiers: Heart failure type: unspecified Heart failure chronicity: acute Qualified Code(s): I50.9 - Heart failure, unspecified Afib Qualifiers: Atrial fibrillation type: unspecified Qualified Code(s): I48.91 - Unspecified atrial fibrillation Condition: Serious Record reviewed to determine appropriate education?: Yes Instructions: ED CHF Left Side Prescriptions: Furosemide [Lasix] 20 mg PO DAILY #30 tablet Potassium Chloride 10 meq PO DAILY #30 tab Comments: She was seen today for heart failure which is likely related to her moderate to severe mitral regurgitation. She also had a CT pulmonary angiogram given her recent admission to the hospital which was negative for thromboembolic disease. She should have outpatient cardiology follow-up [facility] for continued heart failure management and consideration for whether or not she needs cardiothoracic referral for the mitral regurgitation. [facility] She did receive IV Lasix here. She should have a low-salt diet with fluid restriction of 2 L/day. She should be weighed daily, tracked and reported to snf physician. Forms: PCP List
[2024-05-15] MEDS ORDERED: iohexoL-300 100 ML VIAL ONE (07:22)
[2024-05-15] MEDS: FUROSEMIDE 40 MG/4 ML VIAL IVP STA (07:35)
[2024-05-15 07:37] LABS: BILIRUBIN,TOTAL 0.6 mg/dL (0.2-1.0); CALCIUM 8.4 mg/dL (8.5-10.3); CREATININE 0.5 mg/dL (0.6-1.3); POTASSIUM 3.9 mmol/L (3.5-4.5); TOTAL PROTEIN 5.9 g/dL (6.4-8.9)
[2024-05-15 07:41] LABS: BASOPHILS # (AUTO) 0.1 10^3/uL (0.0-0.1); BASOPHILS % (AUTO) 0.7 %; EOSINOPHILS # (AUTO) 0.1 10^3/uL (0.0-0.7); HCT - HEMATOCRIT 30.6 % (37.0-47.0); HGB - HEMOGLOBIN 10.5 g/dL (12.0-16.0); LYMPHOCYTES # (AUTO) 1.1 10^3/uL (1.5-3.5); LYMPHOCYTES % (AUTO) 7.9 %; MEAN CORPUSCULAR HGB CONC 34.3 g/dL (32.0-36.0); MEAN CORPUSCULAR VOLUME 96.2 fL (81.0-99.0); MEAN PLATELET VOLUME 9.9 fL (7.9-10.8); MONOCYTES # (AUTO) 0.5 10^3/uL (0.0-1.0); MONOCYTES % (AUTO) 3.7 %; NEUTROPHILS # (AUTO) 11.9 10^3/uL (1.5-6.6); NEUTROPHILS % (AUTO) 85.7 %; PLT - PLATELET COUNT 509 10^3/uL (130-450); RED BLOOD COUNT 3.18 10^6/uL (4.20-5.40); RED CELL DISTRIBUTION WIDTH 13.8 % (12.0-15.0); WHITE BLOOD COUNT 13.9 x10^3/uL (4.8-10.8)
--- NOTE | 2024-05-15 08:07 | XRAY Report ---
PROCEDURE: Chest 1V INDICATIONS: dyspnea TECHNIQUE: One view of the chest was acquired. COMPARISON: 05/06/2024. FINDINGS: Surgical changes and devices: None. Lungs and pleura: Diffuse pulmonary edema, as before. Slight increase in right basilar pleural effus ion. Stable left basilar pleural effusion. Bibasilar atelectasis. Mediastinum: Mediastinal contours appear normal. Cardiomegaly. Bones and chest wall: No suspicious bony lesions. Overlying soft tissues appear unremarkable. IMPRESSION: Congestive heart failure. Findings are concordant with preliminary interpretation provided by [facility]. Reviewed by: mEre Longoria MD on 05/15/2024 8:06 AM PDT Approved by: Emre Longoria MD on 05/15/2024 8:06 AM PDT Station ID: [id number]
--- NOTE | 2024-05-15 08:54 | CT Report ---
PROCEDURE: Angio Chest INDICATIONS: dyspnea, pe protocol CONTRAST: Omni 300 80ml TECHNIQUE: After the administration of intravenous contrast, 2 mm axial images were acquired from the pulmonary apices to the posterior costophrenic angles during the arterial phase. In addition, 1 mm lung kernel and 5 mm soft tissue kernel reconstructions were performed. 3-dimensional coronal oblique maximum int ensity projection (MIP) reformats, 8 mm axial MIP, and 5 mm coronal and sagittal MPR reformats were t hen performed through the thorax. For radiation dose reduction, the following was used: automated exp osure control, adjustment of mA and/or kV according to patient size. COMPARISON: Chest x-ray from the same date. FINDINGS: Image quality: Excellent. Large vessels: No filling defects within the opacified pulmonary arteries, accounting for motion and contrast timing. No evidence of acute aortic syndrome or aortic aneurysm. Lungs and pleura: Interstitial and alveolar pulmonary edema. Large right pleural effusion and moderat e left pleural effusion. Compressive bibasilar atelectasis. No suspicious pulmonary nodules which req uire follow up. Mediastinum: Heart size is enlarged.. No pericardial effusion. No large vessel abnormality. No medias tinal adenopathy by size criteria. Chest wall and lower neck: Thyroid is unremarkable. No axillary or supraclavicular adenopathy by size . Bones: No aggressive osseous abnormality. Diffuse osteopenia. 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 Upper Abdomen: Unremarkable. IMPRESSION: 1. No acute pulmonary blood. 2. Congestive heart failure exacerbation, severe. Reviewed by: Emre Longoria MD on 05/15/2024 8:52 AM PDT Approved by: Emre Longoria MD on 05/15/2024 8:52 AM PDT Station ID: [id number]
[2024-05-15] MEDS: iohexoL-300 100 ML VIAL IVP ONE (10:13)
[2024-05-15] MEDS: diltiaZEM INJ 5 MG/ML VIAL IVP STA (10:49)
[2024-05-15] MEDS: CALCIUM GLUC 1,000MG/50ML-NACL 1,000 MG/50 ML BAG IV STA (11:10)
[2024-05-15 11:41] VITALS: O2SAT 97
[2024-05-15] MEDS ORDERED: diltiaZEM INJ 5 MG/ML VIAL ONE (11:45)
[2024-05-15] MEDS: diltiaZEM INJ 125 MG in DEXTROSE 5% 100 ML IV SCH (12:08)
[2024-05-15] MEDS: ETOMIDATE 40 MG/20 ML VIAL IVP STA (12:45)
[2024-05-15] MEDS: ASPIRIN CHEW 81 MG TABLET PO STA (13:27)
[2024-05-15] MEDS: HEPARIN 25000UNITS/500ML (D5W) 25,000 UNIT/500 ML BAG IV SCH (13:35)
[2024-05-15 14:41] VITALS: BP 115/75
== END 2024-05-15 15:59 | disposition short-term general hospital (02) ==
LOC: EDUNIT# → ED 06:44
DX: I34.0 Nonrheumatic mitral (valve) insufficiency (principal); I50.9 Heart failure, unspecified; I48.91 Unspecified atrial fibrillation; J44.9 Chronic obstructive pulmonary disease, unspecified
CPT/HCPCS: 36415; 71045; 71275; 80053; 83690; 83880; 84484; 85025; 93005; 96365; 96375; 99291; A9270; Q9967

== ENCOUNTER 2024-05-26 20:05 | Emergency (ER) | payer MEDICARE, MEDICAID ==
--- NOTE | 2024-05-26 20:35 | ED Physician Documentation ---
History of Present Illness - Stated complaint Stated Complaint: SOA/HIGH HR - Chief complaint Chief Complaint: General - History obtained from History obtained from: Patient - Additonal information Additional information: This is a 74-year-old woman who developed streptococcal sepsis early last month. She was hospitalized here and subsequently going to [facility] for IV antibiotic therapy. She bounced back on the in A-fib with RVR with CHF. She was noted on the first admission in early April to have moderate to severe MR. Prior to the repeat visit on the she was started on home oxygen. Again, I sent her to [facility] on May 15, this was for CHF and A-fib with RVR with a positive troponin. She says she was there for about a week and treated medically. She was discharged home on Lasix, Eliquis, metoprolol, and a statin. She has only been compliant with the metoprolol and the statin. The Eliquis was too expensive and she does not feel like she needs the Lasix. She is here today wondering if she is septic again from her left hand. The left hand is hurting and she noted some shortness of breath with rapid heart rates although she does not feel like she is back in A-fib. She denies fevers or chills. She denies pedal edema or calf pain. No chest pain. PD PAST MEDICAL HISTORY - Past Medical History Past Medical History: Yes Cardiovascular: Congestive heart failure, Other Respiratory: COPD Neuro: None Endocrine/Autoimmune: None GI: Hemorrhoids, Other CHEMIST INSTRUMENTATION: None : None HEENT: Chronic vision loss Psych: None Musculoskeletal: Osteoarthritis Derm: None - Past Surgical History Past Surgical History: Yes General: Appendectomy, Bowel surgery /CHEMIST INSTRUMENTATION: Oophrectomy - Present Medications Home Medications: Ambulatory Orders Medication Instructions Recorded Confirmed Acetaminophen [Tylenol] 650 mg PO Q4HR PRN tab 05/06/24 05/15/24 Docusate Sodium 250Mg Capsule 250 mg PO DAILY cap 05/06/24 05/15/24 [Colace 250Mg Capsule] Ibuprofen [Motrin] 600 mg PO Q6HR PRN tab 05/06/24 05/15/24 Magnesium Oxide [Mag Ox] 400 mg PO BID tab 05/06/24 05/15/24 Melatonin 3 mg PO QPM PRN tab 05/06/24 05/15/24 Multivitamin [Theragran] 1 tab PO DAILY tab 05/06/24 05/15/24 Senna [Senokot] 8.6 mg PO BID tab 05/06/24 05/15/24 Thiamine [Vitamin B-1] 100 mg PO DAILY tab 05/06/24 05/15/24 polyethylene glycoL 3350 [Miralax] 17 gm PO DAILY PRN packet 05/06/24 05/15/24 Celecoxib [CeleBREX] 100 mg PO BID PRN 05/15/24 05/15/24 Cyclobenzaprine [Flexeril] 5 mg PO Q8HR PRN 05/15/24 05/15/24 Furosemide [Lasix] 20 mg PO DAILY #30 tablet 05/15/24 Potassium Chloride 10 meq PO DAILY #30 tab 05/15/24 Potassium Chloride [Micro-K] 20 meq PO DAILY 05/15/24 05/15/24 cefTRIAXone [Rocephin 2 gram] 2 gm IM DAILY 05/15/24 05/15/24 - Allergies Allergies/Adverse Reactions: Allergies Allergy/AdvReac Type Severity Reaction Status Date / Time No Known Drug Allergies Allergy Verified 05/26/24 20:22 - Social History Does the pt smoke?: No Smoking Status: Never smoker Does the pt drink ETOH?: Yes Does the pt have substance abuse?: No - Immunizations Immunizations are current?: Yes - POLST Patient has POLST: No POLST Status: DNR PD ED PE NORMAL - Vitals Vital signs reviewed: Yes - General General: Alert and oriented X 3, No acute distress, Other (She is modestly tachycardic in sinus rhythm on the monitor.) - HEENT HEENT: PERRL, EOMI - Neck Neck: Supple, no meningeal sign, No bony TTP - Cardiac Cardiac: RRR (Loud systolic murmur heard best at the apex) - Respiratory Respiratory: No respiratory distress, Clear bilaterally - Abdomen Abdomen: Non tender - Derm Derm: Normal color, Warm and dry - Extremities Extremities: No edema, No calf tenderness / cord - Neuro Neuro: Alert and oriented X 3, Normal speech Results - Vitals Vitals: Vital Signs - 24 hr 05/26/24 05/26/24 05/26/24 20:09 21:32 22:42 Temperature 36.1 C L 36.1 C L Heart Rate 100 91 91 Respiratory 22 20 19 Rate Blood Pressure 102/61 110/69 110/69 O2 Saturation 90 L 95 95 Oxygen O2 Source Room air - Labs Labs: Laboratory Tests 05/26/24 05/26/24 05/26/24 20:35 20:35 20:35 WBC 9.5 RBC 3.31 L Hgb 10.6 L Hct 31.2 L MCV 94.3 MCH 32.0 H MCHC 34.0 RDW 14.6 Plt Count 563 H MPV 10.1 Neut # (Auto) 7.2 H Lymph # (Auto) 1.5 Smyth # (Auto) 0.8 Eos # (Auto) 0.0 Baso # (Auto) 0.1 Absolute Nucleated RBC 0.00 Nucleated RBC % 0.0 Sodium 125 L Potassium 4.4 Chloride 94 L Carbon Dioxide 21 Anion Gap 10.0 BUN 14 Creatinine 0.7 Estimated GFR (MDRD) 82 L Glucose 102 Lactic Acid Calcium 8.6 Magnesium 1.3 L Total Bilirubin 0.9 AST 21 ALT 16 Alkaline Phosphatase 144 H B-Natriuretic Peptide 1117 H Total Protein 5.8 L Albumin 3.3 Globulin 2.5 Albumin/Globulin Ratio 1.3 05/26/24 20:35 WBC RBC Hgb Hct MCV MCH MCHC RDW Plt Count MPV Neut # (Auto) Lymph # (Auto) Smyth # (Auto) Eos # (Auto) Baso # (Auto) Absolute Nucleated RBC Nucleated RBC % Sodium Potassium Chloride Carbon Dioxide Anion Gap BUN Creatinine Estimated GFR (MDRD) Glucose Lactic Acid 0.9 Calcium Magnesium Total Bilirubin AST ALT Alkaline Phosphatase B-Natriuretic Peptide Total Protein Albumin Globulin Albumin/Globulin Ratio - Rads (name of study) Chest x-ray shows pulmonary edema Relevant Findings:: EMP independent interpretation of test PD Medical Decision Making - ED course ED course: She was concerned because she has a small area of hand pain which is the source of sepsis previously. She appears well with no fevers but has borderline pulse oximetry's. She was worried about sepsis, but her white count is normal with normal lactate. Otherwise her workup was notable for hyponatremia with signs of pulmonary edema and elevated BNP. She is not in A-fib and she is rate controlled without significant hypertension. She has been noncompliant with her Lasix and was advised to restart it. Departure - Departure Disposition: Home, Self Care Clinical Impression: Moderate to severe mitral regurgitation Congestive heart failure Qualifiers: Heart failure type: unspecified Heart failure chronicity: acute on chronic Qualified Code(s): I50.9 - Heart failure, unspecified Condition: Good Record reviewed to determine appropriate education?: Yes Instructions: ED CHF Left Side Comments: You are seen tonight because were concerned about recurrent sepsis. Your white blood cell count and lactate were negative which is reassuring. We will call you if your blood cultures are positive but given the lack of fevers I doubt that will be the case. That said, there is a lot of fluid on your chest x-ray and I think you need to restart your furosemide/Lasix. Call your doctor to arrange a follow-up appointment, make the next available appointment. In the interim, return anytime if worse or if new symptoms develop. Forms: PCP List Discharge Date/Time: 05/26/24 22:43
[2024-05-26 20:54] LABS: BASOPHILS # (AUTO) 0.1 10^3/uL (0.0-0.1); BASOPHILS % (AUTO) 0.9 %; EOSINOPHILS % (AUTO) 0.1 %; HCT - HEMATOCRIT 31.2 % (37.0-47.0); HGB - HEMOGLOBIN 10.6 g/dL (12.0-16.0); LYMPHOCYTES # (AUTO) 1.5 10^3/uL (1.5-3.5); LYMPHOCYTES % (AUTO) 15.3 %; MEAN CORPUSCULAR VOLUME 94.3 fL (81.0-99.0); MEAN PLATELET VOLUME 10.1 fL (7.9-10.8); MONOCYTES # (AUTO) 0.8 10^3/uL (0.0-1.0); MONOCYTES % (AUTO) 7.9 %; NEUTROPHILS # (AUTO) 7.2 10^3/uL (1.5-6.6); NEUTROPHILS % (AUTO) 75.4 %; PLT - PLATELET COUNT 563 10^3/uL (130-450); RED BLOOD COUNT 3.31 10^6/uL (4.20-5.40); RED CELL DISTRIBUTION WIDTH 14.6 % (12.0-15.0); WHITE BLOOD COUNT 9.5 x10^3/uL (4.8-10.8)
[2024-05-26 21:05] LABS: ALBUMIN 3.3 g/dL (3.2-5.5); ALBUMIN/GLOBULIN RATIO 1.3 (1.0-2.2); BILIRUBIN,TOTAL 0.9 mg/dL (0.2-1.0); CALCIUM 8.6 mg/dL (8.5-10.3); CREATININE 0.7 mg/dL (0.6-1.3); MAGNESIUM 1.3 mg/dL (1.7-2.3); POTASSIUM 4.4 mmol/L (3.5-4.5); TOTAL PROTEIN 5.8 g/dL (6.4-8.9)
[2024-05-26 21:40] VITALS: BP 110/69; O2SAT 95
--- NOTE | 2024-05-26 23:10 | XRAY Report ---
PROCEDURE: Chest 1V INDICATIONS: dyspnea TECHNIQUE: One view of the chest was acquired. COMPARISON: 05/15/2024 FINDINGS: Surgical changes and devices: None. Lungs and pleura: Diffuse mixed interstitial and alveolar opacities, increased compared to the prior exam. Bibasilar consolidations and probable small bilateral effusions, right greater than left. Mediastinum: Indistinct heart size and indistinct and cephalized central vasculature. Normal aortic contour. Bones and chest wall: No suspicious bony lesions. Overlying soft tissues appear unremarkable. IMPRESSION: Findings suggestive of central vascular congestion, interstitial edema, and diffuse pulmonary edema, progressed since the prior exam. Underlying infection is not excluded and may be superimposed. Reviewed by: Maraim Fisher MD on 05/26/2024 11:09 PM PDT Approved by: Mariam Fisher MD on 05/26/2024 11:09 PM PDT Station ID: [id number]
== END 2024-05-26 22:43 | disposition home or self-care (01) ==
LOC: ED 20:05
DX: I34.0 Nonrheumatic mitral (valve) insufficiency (principal); I50.9 Heart failure, unspecified; T45.516A Underdosing of anticoagulants, initial encounter; Z91.120 Patient's intentional underdosing of medication regimen due to financial hardship; Z59.86 Financial insecurity; I48.91 Unspecified atrial fibrillation; J44.9 Chronic obstructive pulmonary disease, unspecified; Z79.01 Long term (current) use of anticoagulants; Z79.899 Other long term (current) drug therapy
CPT/HCPCS: 36415; 80053; 83605; 83735; 83880; 85025; 87040; 99283; 99284